=== PATIENT | female | born 1995 | race Caucasian/White ===

== ENCOUNTER 2023-02-13 05:37 | Emergency (ER) | payer BC, SELFPAY ==
[2023-02-13 05:39] VITALS: BP 135/80; PULSE 98; RESP 16; TEMP 36.2; O2SAT 98; BMI 37.6
--- OUTSIDE RECORDS SUMMARY | 2023-02-13 05:57 | XMS RPT_ITS | CCD ---
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 Name Role Phone Bernardino Campos MD Primary Care Provider KAYLA SCHMITZ Admitting Unavailab le NADIR, KAYLA GUERIN Attending Unavailab le BERNARDINO CAMPOS Primary Care Unavailab Bernardino Causey MD Primary Care Provider KAYLA SCHMITZ Attending Unavailab le BERNARDINO CAMPOS Primary Care Unavailab BERNARDINO Causey Primary Care Unavailab BERNARDINO Causey Primary Care Unavailab BRUNO Brown Attending Unavailable BERNARDINO CAMPOS Primary Care Unavailab le NADIR, KAYLA GUERIN Referring Unavailab le LEMON, VICKI Attending Unavailable BERNARDINO CAMPOS Primary Care Unavailab le NADIR, KAYLA GUERIN Referring Unavailab le LEMON, VICKI Attending Unavailable KAYLA SCHMITZ Referring Unavailab le BERNARDINO CAMPOS Primary Care Unavailab BERNARDINO Causey Primary Care Unavailab le NADIR, KAYLA GUERIN Referring Unavailab le SILVERIO, JAIMIE Attending Unavailable BERNARDINO CAMPOS Primary Care Unavailab le NADIR, KAYLA GUERIN Referring Unavailab le BERNARDINO CAMPOS Primary Care Unavailab le NADIR, KAYLA GUERIN Referring Unavailab le BERNARDINO CAMPOS Primary Care Unavailab le NADIR, KAYLA GUERIN Attending Unavailab le BERNARDINO CAMPOS Primary Care Unavailab le NADIRKAYLA MCMILLAN Referring Unavailab le BERNARDINO CAMPOS Primary Care Unavailab le BERNARDINO CAMPOS Primary Care Unavailab le NADIR, KAYLA GUERIN Referring Unavailab le BERNARDINO CAMPOS Primary Care Unavailab le NADIR, KAYLA GUERIN Referring Unavailab le BURSLEY, APALACHICOLA Rodney Primary Care Unavailab le STEPHEN, MONTSERRAT Referring Unavailable LEMONVICKI Attending Unavailable SYBILLEYBERNARDINO Primary Care Unavailab le ANDRES, KAYLA Referring Unavailable NAIDR, KAYLA GUERIN Attending Unavailab le BURSLEY APALACHICOLA Rodney Primary Care Unavailab le NADIR, KAYLA GUERIN Referring Unavailab le BURSLEY, ALBA Rodney Primary Care Unavailab le BURSLEY, APALACHICOLA Rodney Primary Care Unavailab le NADIR, KAYLA GUERIN Referring Unavailab le LEMON, VICKI Attending Unavailable BERNARDINO CAMPOS Primary Care Unavailab le NADIR, KAYLA GUERIN Referring Unavailab le SILVERIO, JAIMIE Attending Unavailable NADIR, KAYLA GUERIN Referring Unavailab le BURSLEY, ALBA Rodnye Primary Care Unavailab le SILVERIO, JAIMIE Attending Unavailable NADIR, KAYLA GUERIN Referring Unavailab le BURSLEYALBA Rodney Primary Care Unavailab le SILVERIO, JAIMIE Attending Unavailable ALBA CAMPOS Rodney Primary Care Unavailab le NADIR, KAYLA GUERIN Referring Unavailab le BURSLEY, BERNARDINO Stevens Primary Care Unavailab le NADIR, KAYLA GUERIN Referring Unavailab le NADIR, KAYLA GUERIN Attending Unavailab le NADIR, KAYLA GUERIN Referring Unavailab le BURSLEY, APALACHICOLA Rodney Primary Care Unavailab le SILVERIO, JAIMIE Attending Unavailable NADIR, KAYLA GUERIN Referring Unavailab le BURSLEYALBA Rodney Primary Care Unavailab le SILVERIO, JAIMIE Attending Unavailable SYBILLEYALBA Rodney Primary Care Unavailab le NADIR, KAYLA GUERIN Referring Unavailab le SILVERIO, JAIMIE Attending Unavailable BURSLEYALBAER B Primary Care Unavailab le NADIR, KAYLA GUERIN Referring Unavailab le SILVERIO, JAIMIE Attending Unavailable BERNARDINO CAMPOS Primary Care Unavailab le NADIR, KAYLA GUERIN Referring Unavailab le BURSLEY, ALBA B Primary Care Unavailab le NADIR, KAYLA GUERIN Attending Unavailab le ANDRESKAYLA Referring Unavailable Allergies Allergy Classification Reported Allergen(s) Allergy Type Date of Onset Reaction(s) Facility (20 sources) FLUoxetine; Translations: [FLUOXETINE] Drug Allergy 03-10-2021 Other: See Comments [facility] Work Phone: (20 sources) Ibuprofen; Translations: [IBUPROFEN] Drug Allergy 09-13-[address] [facility] (20 sources) Latex; Translations: [LATEX] Drug Allergy 09-13-[address] [facility] Medications Current Medications Medication Drug Class(es) Dates Sig (Normalized) Sig (Original) cholecalciferol 1.25 mg oral capsule (5 sources) Vitamin D Start: 06-12-2021 End: 09-09-2021 take 1 capsule by mouth every week cholecalciferol, Vitamin D3, (VITAMIN D3) 1,250 mcg (50,000 unit) cap capsule Take 1 capsule by mouth one time a week. 12 capsule 0 06/12/2021 09/09/2021 Discontinued (Course of therapy completed) Completed/Discontinued Medications Medication Drug Class(es) Dates Sig (Normalized) Sig (Original) acetaminophen 500 mg oral tablet (10 sources) take 2 tablets by mouth every eight hours as needed acetaminophen (TYLENOL EXTRA STRENGTH) 500 mg tablet Take 1,000 mg by mouth every 8 hours as needed. 0 Active Problems Active Problems Problem Classification Problem Date Documented Da te Episodic/Chronic Anxiety disorders (20 sources) Mixed anxiety and depressive disorder; Translations: [Other specified anxiety disorders] Chronic Contraceptive and procreative management (4 sources) Patient encounter status; Translations: [Encounter for removal of intrauterine contraceptive device] Episodic Disorders of lipid metabolism (20 sources) Hyperlipidemia; Translations: [Hyperlipidemia, unspecified] 11-18-2020 Chronic Menstrual disorders (20 sources) Dysmenorrhea; Translations: [Dysmenorrhea, unspecified] Onset: 09-13-2014 09-18-2019 Chronic Nutritional deficiencies (2 sources) Vitamin D deficiency; Translations: [Vitamin D deficiency, unspecified] Chronic Other connective tissue disease (1 source) Bicipital tendinitis, right shoulder; Translations: [Bicipital tendinitis of right shoulder] Onset: 12-06-2022 Episodic Other gastrointestinal disorders (1 source) Other constipation; Translations: [Chronic constipation] Onset: 11-29-2022 Episodic Other nervous system disorders (1 source) Other chronic pain; Translations: [Chronic right shoulder pain] Onset: 04-23-2022 Chronic Other nutritional; endocrine; and metabolic disorders (20 sources) Obese class II; Translations: [Obesity, unspecified] Onset: 09-18-2019 09-18-2019 Chronic Other and delivery including normal (2 sources) Normal ; Translations: [Encounter for supervision of normal first , unspecified trimester] 01-10-2023 Episodic Residual codes; unclassified (1 source) Other specified postprocedural states; Translations: [S/P shoulder surgery] Onset: 11-29-2022 Episodic Past or Other Problems Problem Classification Problem Date Documented Da te Episodic/Chronic Other connective tissue disease (20 sources) Biceps tendinitis; Translations: [Bicipital tendinitis, right shoulder] Onset: 05-03-2022 Episodic Other non-traumatic joint disorders (1 source) Pain in right shoulder; Translations: [Chronic right shoulder pain] Onset: 04-23-2022 Episodic Results Test Name Value Interpretation Reference Range Facil ity Vital Signs Date Time Vital Sign Value Performing Clinician Faci lity 01-18-2023 10:00-0500 Body height 161.3 cm Bruno Guerin MD Work Phone: [facility] 01-18-2023 10:00-0500 Body weight 97.7 kg Bruno Guerin MD Work Phone: [facility] 01-18-2023 10:00-0500 Diastolic blood pressure 80 mm[Hg] Bruno Guerin MD Work Phone: [facility] 01-18-2023 10:00-0500 Systolic blood pressure 116 mm[Hg] Brnuo Guerin MD Work Phone: [facility] 11-16-2022 19:15-0400 Body height 161.3 cm [facility] 11-16-2022 19:15-0400 Body weight 97.52 kg [facility] 11-16-2022 19:15-0400 Heart rate 71 /min [facility] 09-09-2021 08:44-0400 Body weight 99.07 kg Марина Collado APRN.PAST DUE ACCOUNTS CLERK Work Phone: [facility] 09-09-2021 08:44-0400 Diastolic blood pressure 68 mm[Hg] Марина Collado APRN.PAST DUE ACCOUNTS CLERK Work Phone: [facility] 09-09-2021 08:44-0400 Heart rate 68 /min Марина Podlogar ASSEMBLER [employer]ATE.PAST DUE ACCOUNTS CLERK Work Phone: [facility] 09-09-2021 08:44-0400 Respiratory rate 16 /min Марина Podlogar ASSEMBLER [employer].PAST DUE ACCOUNTS CLERK Work Phone: [facility] 09-09-2021 08:44-0400 SaO2% (BldA) [Mass fraction] 98 % Марина Podlogar ASSEMBLER [employer].PAST DUE ACCOUNTS CLERK Work Phone: [facility] 09-09-2021 08:44-0400 Systolic blood pressure 124 mm[Hg] Марина Podlogar ASSEMBLER [employer].PAST DUE ACCOUNTS CLERK Work Phone: [facility] 08-17-2021 11:35-0400 Body weight 99.34 kg Li Olin ASSEMBLER [employer]ATE.PAST DUE ACCOUNTS CLERK Work Phone: [facility] 08-17-2021 11:35-0400 Diastolic blood pressure 80 mm[Hg] Li Wendy ASSEMBLER [employer].PAST DUE ACCOUNTS CLERK Work Phone: [facility] 08-17-2021 11:35-0400 Systolic blood pressure 140 mm[Hg] Li Wendy ASSEMBLER [employer].PAST DUE ACCOUNTS CLERK Work Phone: [facility] 06-09-2021 15:08-0400 Body weight 100.61 kg Bernardino Campos MD Work Phone: [facility] 06-09-2021 15:08-0400 Diastolic blood pressure 72 mm[Hg] Bernardino Campos MD Work Phone: [facility] 06-09-2021 15:08-0400 Heart rate 89 /min Bernardino Campos MD Work Phone: [facility] 06-09-2021 15:08-0400 Respiratory rate 16 /min Bernardino Campos MD Work Phone: [facility] 06-09-2021 15:08-0400 SaO2% (BldA) [Mass fraction] 97 % Bernardino Campos MD Work Phone: [facility] 06-09-2021 15:08-0400 Systolic blood pressure 124 mm[Hg] Bernardino Campos MD Work Phone: [facility] Encounters Encounter Date Encounter Type Care Provider Facility Start: 02-09-2023 End: 02-09-2023 ambulatory ALBA Rodney CAMPOS Facility:[facility] Start: 02-04-2023 End: 02-04-[address] [facility] Facility:[facility] Start: 01-28-2023 End: 01-28-[address] [facility] Facility:[facility] Start: 01-18-2023 End: 01-18-[address] [facility] Facility:[facility] Start: 01-18-2023 End: 01-18-2023 Patient encounter procedure Bruno Guerin MD Work Phone: OB/Gynecology Procedures Date Procedure Procedure Detail Performing Clinician Start: 01-18-2023 Iadna chlamydia trachomatis amplified probe tq Bruno Guerin MD Work Phone: Start: 07-19-2022 Mri any jt upper extremity w/o contrast matrl Kayla Schmitz MD Work Phone: Start: 11-18-2020 Adult depression screening assessment Bernardino Campos MD Work Phone: Plan of Treatment Date Care Activity Detail Author Start: 11-18-2030 Urine microalbumin profile [facility] Start: 01-18-2023 End: 04-19-2023 CBC panel - Blood by Automated count CBC Lab Routine Supervision of normal first , antepartum Expected: 01/18/2023, Expires: 04/19/2023 [facility] Work Phone: Immunizations Immunization Date Immunization Notes Care Provider Fa [facility] 12-09-2021 influenza virus vaccine, unspecified formulation Kayla Schmitz MD Work Phone: [facility] 03-06-2021 COVID-19 vaccine, ag e 12+ yr (PFIZER-BIONTECH - PURPLE TOP) Bernardino Campos MD Work Phone: [facility] 02-12-2021 COVID-19 vaccine, ag e 12+ yr (PFIZER-RevcasterNTSerstech - PURPLE TOP) Bernardino Campos MD Work Phone: [facility] 11-18-2020 influenza virus vaccine, unspecified formulation Bernardino Campos MD Work Phone: [facility] Work Phone: 11-18-2020 influenza, injectabl e, quadrivalent, contains preservative Bernardino Campos MD Work Phone: [facility] 11-18-2020 tetanus toxoid, redu dana diphtheria toxoid, and acellular pertussis vaccine, adsorbed Bernardino Campos MD Work Phone: [facility] 11-01-2019 influenza, injectabl e, quadrivalent, preservative free Bernardino Campos MD Work Phone: [facility] Work Phone: 11-30-2010 influenza virus vaccine, live, attenuated, for intranasal use Bernardino Campos MD Work Phone: [facility] Work Phone: 09-22-2010 meningococcal polysaccharide (groups A, C, Y and W-135) diphtheria toxoid conjugate vaccine (MCV4P) Bernardino Campos MD Work Phone: [facility] Work Phone: 03-16-2010 tetanus toxoid, redu dana diphtheria toxoid, and acellular pertussis vaccine, adsorbed Bernardino Campos MD Work Phone: [facility] Work Phone: 10-18-2009 influenza virus vaccine, live, attenuated, for intranasal use Bernardino Campos MD Work Phone: [facility] Work Phone: 04-10-2009 human papilloma viru s vaccine, quadrivalent Bernardino Campos MD Work Phone: [facility] Work Phone: 12-23-2008 novel [id number], preservative-free, injectable Bernardino Campos MD Work Phone: [facility] Work Phone: 12-03-2008 human papilloma viru s vaccine, quadrivalent Bernardino Campos MD Work Phone: [facility] Work Phone: 09-17-2008 human papilloma viru s vaccine, quadrivalent Bernardino Campos MD Work Phone: [facility] Work Phone: 09-17-2008 influenza virus vaccine, live, attenuated, for intranasal use Bernardino Campos MD Work Phone: [facility] Work Phone: 09-17-2008 varicella virus vaccine Sonyai leio Campos MD Work Phone: [facility] Work Phone: 08-29-2001 diphtheria, tetanus toxoids and acellular pertussis vaccine, unspecified formulation Bernardino Campos MD Work Phone: [facility] Work Phone: 08-29-2001 measles, mumps and rubella virus vaccine Bernardino Campos MD Work Phone: [facility] Work Phone: 08-29-2001 poliovirus vaccine, unspecified formulation Bernardino Campos MD Work Phone: [facility] Work Phone: 02-14-1998 diphtheria, tetanus toxoids and acellular pertussis vaccine, unspecified formulation Bernardino Campos MD Work Phone: [facility] Work Phone: 02-14-1998 poliovirus vaccine, unspecified formulation Bernardino Campos MD Work Phone: [facility] Work Phone: 11-07-1997 haemophilus influenz ae type b vaccine, conjugate unspecified formulation Bernardino Campos MD Work Phone: [facility] Work Phone: 07-24-1997 measles, mumps and rubella virus vaccine Bernardino Campos MD Work Phone: [facility] Work Phone: 07-24-1997 varicella virus vaccine Vick Campos MD Work Phone: [facility] Work Phone: 05-02-1997 hepatitis B vaccine, pediatric or pediatric/adolescent dosage Bernardino Campos MD Work Phone: [facility] Work Phone: 02-11-1997 diphtheria, tetanus toxoids and acellular pertussis vaccine, unspecified formulation Bernardino Campos MD Work Phone: [facility] Work Phone: 02-11-1997 haemophilus influenz ae type b vaccine, conjugate unspecified formulation Bernardino Campos MD Work Phone: [facility] Work Phone: 1996 diphtheria, tetanus toxoids and acellular pertussis vaccine, unspecified formulation Bernardino Campos MD Work Phone: [facility] Work Phone: 1996 haemophilus influenz ae type b vaccine, conjugate unspecified formulation Bernardino Campos MD Work Phone: [facility] Work Phone: 1996 hepatitis B vaccine, pediatric or pediatric/adolescent dosage Bernardino Campos MD Work Phone: [facility] Work Phone: 1996 poliovirus vaccine, unspecified formulation Bernardino Campos MD Work Phone: [facility] Work Phone: 1996 diphtheria, tetanus toxoids and acellular pertussis vaccine, unspecified formulation Bernardino Campos MD Work Phone: [facility] Work Phone: 1996 haemophilus influenz ae type b vaccine, conjugate unspecified formulation Bernardino Campos MD Work Phone: [facility] Work Phone: 1996 hepatitis B vaccine, pediatric or pediatric/adolescent dosage Bernardino Campos MD Work Phone: [facility] Work Phone: 1996 poliovirus vaccine, unspecified formulation Bernardino Campos MD Work Phone: [facility] Work Phone: Payers Date Payer Category Payer Unknown [employer] PPO OOS [id number] 2021-Present [phone] [address] [place] [address] PPO [id number] 2021 Unknown [employer] PPO OOS [id number] 2021-Present [phone] [address] [place] [address] PPO [id number] 2021 Unknown [id number] Social History Date Type Detail Facility Start: 08-14-2019 End: 04-06-2022 Tobacco smoking status NHIS Never smoked tobacco [facility] Start: 08-14-2019 End: 04-06-2022 Tobacco use and exposure Smokeless tobacco non-user [facility] Start: 06-09-2021 End: 12-28-2022 Alcohol intake Current drinker of alcohol (finding) [facility] Start: 06-09-2021 End: 06-11-[address] [facility] Start: 11-16-2020 History SDOH Alcohol Frequency [address] [facility] Start: 11-16-2020 History SDOH Alcohol Std Drinks [address] [facility] Start: 11-16-2020 End: 09-02-2021 [facility] Start: 11-16-2020 History SDOH Social Connections Meetings [address] [facility] Start: 11-16-2020 History SDOH Stress 4 [facility] Start: 09-04-[address] [facility] Start: 1995 Sex Assigned At Female C [facility] Start: 05-30-2021 End: 08-17-2021 Exposure to SARS-CoV-2 (event) Not sure [facility] Start: 11-16-2020 End: 06-11-2022 Social connection and isolation panel [facility] Do you belong to any clubs or organizations such as sikhism groups, unions, fraternal or athletic groups, or school groups? No [facility] How often do you att end meetings of the clubs or organizations you belong to? Patient refused [facility] Are you now , , , , never or living with a partner? [facility] How often to you hav e a drink containing alcohol? 2-4 times a month [facility] How many standard dr inks containing alcohol do you have on a typical day? [address] [facility] How often do you hav e 6 or more drinks on 1 occasion? Less than monthly [facility] How hard is it for y ou to pay for the very basics like food, housing, medical care, and heating Not very hard [facility] Do you feel stress - tense, restless, nervous, or anxious, or unable to sleep at night because your mind is troubled all the time - these days [OSQ] Rather much [facility] (I/We) worried susie er (my/our) food would run out before (I/we) got money to buy more. Never true [facility] Start: 09-05-2019 Gender identity Identifies as female gender (finding) [facility] Start: 09-05-2019 Sexual orientation Heterosexual (samson abbasi) [facility] Start: 01-10-2023 End: 01-18-2023 Alcohol intake Ex-drinker (finding) [facility] Start: 12-02-[address] [facility] Medical Equipment Procedure Code Equipment Code Equipment Origin al Text Equipment Identifier Dates Lnt Implant Syst em 4.75 Bc [id number] Start: 11-29-2022 Goals Date Patient Goal Desired Activity /State Personal health goal Clinical Notes 09-13-2014 to 02-09-2023 Bruno Guerin MD - 01/18/2023 9:47 AM ESTPatient Vicki Jimenez, PT - 01/17/2023 5:57 PM Vicki Simpson, PT - 01/17/2023 5:23 PM ANAOVangie Brady, PT - 01/12/2023 5:19 PM EST Note Date & Type Note Facility 02-09-2023 Note HNO ID: [id number] Author: Vicki Wallace, PT Service: ? Author Type: Physical Therapist Type: Progress Notes Filed: 02/09/2023 4:39 PM Note Text: Episode Visit Count: 11 Therapist That Will Accept/Oversee The Plan Of Care: Vicki Wallace Start of Care Date: 12/06/22 Onset Date: 11/29/22 (original symptom onset 5-6 years ago) Patient Identified by Name and Date of : Yes [facility] PHYSICAL THERAPY PROGRESS REPORT PLAN OF CARE UPDATE: Assessment: Suzy Sue demonstrates improvements in lifting, reaching overhead, and use hand with arm at shoulder level. She has progressed toward goals. Patient continues to present with impairments in overall function, range of motion, and strength that interfere with (certain directions of lifting my shoulder) . Current prognosis is Excellent due to: current objective clinical presentation, good overall health status, good support system/ coping skills . She will benefit from continued skilled therapy services to meet the updated goals for this plan of care as noted below. Goals for Episode of Care: created on 12/06/22 through 02/05/23 Goals updated on 02/09/2023. [place] in home exercise program. (Met) Patient will decrease pain rating by 2 points to meet minimal clinical important difference for numeric pain rating scale. (Met) Patient will increase active ROM of R shld to symmetrical and WNL for all planes to allow pt to to improve performance of ADLs. (Partially Met)-improved Patient will demonstrate increase in R UE strength to 4+ to 5/5 during manual muscle testing in order to improve function for home management tasks, prior functional tasks, and work tasks. (Met) Perform feeding self; all ADLs and required work activities with R UE without pain. (Met) Improve postural awareness. (Met) Patient Goals: To get movement back in my arm. Planned Interventions, Frequency, and Duration: 1x/week, 4 weeks Total Number of Visits Planned: 4 Patient to be seen for Therapeutic exercise (42042), Neuromuscular re-education (90705), Self-group home management (79167), Patient/Family/Caregiver Education, Manual therapy (57476) PLAN FOR NEXT VISIT: Progress strengthening and ROM to fully achieve goals. SUBJECTIVE: Pt reports the exercises are getting easier. She notes improved function R UE with only limitations of certain directions that I lift my arm end range/overhead only. Functional Limitations: (certain directions of lifting my shoulder) Pain: Pain Pain Level: 3 Pain Location: Shoulder - Right Post Treatment Pain Post Treatment Pain Level: (not reated numerically) Post Treatment Pain Location: Shoulder - Right Post Treatment Pain Description: ( just tired ) PROMIS Scales Higher is Better 02/01/2023 01/03/2023 12/03/2022 Phys Func - Score 38 (moderate dysfunction) 35 (moderate dysfunction) 30 (moderate dysfunction) Phys Func - Percentile 12% 7% 2% Self-Eff Symptom - Score 48 (Average) 46 (Average) 39 (Low) Self-Eff Symptom - Percentile 42% 34% 14% T-scores: mean of general population = 50. 5 points is clinically meaningfully difference Percentiles provide an indication of how the patient's score ranks in relation to the general population. Higher percentile rankings indicate better function/quality of life. 50th percentile is the average of the general population and indicates half of respondents had a worse score. OBJECTIVE MEASURES WITH LEVEL OF FUNCTION: UE AROM R Shoulder Flex: 150 Degrees R Shoulder ABduction: 155 Degrees R Shoulder Internal Rotation (Functional): back of hand to lumbar spine (Pt states, Some days I can almost reach my bra strap. ) R Shoulder External Rotation: 45 Degrees R Elbow Extension: 3 Degrees (hyperextension) R Elbow Flexion: 140 Degrees UE and Cervical Strength R Shoulder Flexion: 4+/5 R Shoulder Abduction (C5): 4+/5 R Shoulder Internal Rotation: 4+/5 R Shoulder External Rotation: 4/5 R Elbow Flexion (C6): 4+/5 TREATMENT: Therapeutic Exercise: 1: UBE seat 6 x 4 minutes, no resistance. 2: Bicep curls 2x10 with 2# 3: green band IR 2 x 10 4: green band ER 2 x 10 5: Numbers on the wall #1-5, 4x30 seconds with 1# wrist weight. 6: Body blade IR/ER 3x30 seconds 7: Body blade up and down oscillations 3x30 seconds 8: Shoulder flexion with 1# 2x10 9: Shoulder scaption with 1# 2x10 10: Shoulder abduction with 1# 2x10 11: *wall push ups 2 x 10 Skilled Intervention: Patient was educated in proper exercise technique and purpose for exercises. Reviewed and educated patient on additions/changes for home exercise program as above (*). Skilled judgment was used in selection of appropriate interventions. Provided written instruction for home exercise program to facilitate proper performance and compliance. Correct performance of therapeutic exercises was facilitated with verbal and visual cuing. Additional time necessary (more content not included)... [facility] 02-04-2023 Note HNO ID: [id number] Author: Vicki Wallace, PT Service: ? Author Type: Physical Therapist Type: Progress Notes Filed: 02/04/2023 4:43 PM Note Text: Episode Visit Count: 10 Therapist That Will Accept/Oversee The Plan Of Care: Vicki Wallace Start of Care Date: 12/06/22 Onset Date: 11/29/22 (original symptom onset 5-6 years ago) Patient Identified by Name and Date of : Yes REHABILITATION AND SPORTS THERAPY PHYSICAL THERAPY TREATMENT NOTE ASSESSMENT: Suzy Sue tolerated the session with fatigue and expected muscle soreness. She demonstrated improvements in strengthening of R shoulder without increase in pain. The patient will continue to benefit from ongoing skilled physical therapy to progress toward set goals. PLAN FOR NEXT VISIT: SUBJECTIVE: Pt reports that her shoulder was a little sore this morning, but other than that doing well. Pain: Pain Pain Level: 2 Pain Location: Shoulder - Right Post Treatment Pain Post Treatment Pain Level: Better Post Treatment Pain Location: Shoulder - Right OBJECTIVE MEASURES WITH LEVEL OF FUNCTION: TREATMENT: Therapeutic Exercise: 1: UBE seat 6 x 4 minutes, no resistance. (1:1 throughout; discussed current HEP and subjective collected.) 2: Bicep curls 2x10 with 2# 3: green band IR 2 x 10 4: green band ER 2 x 10 5: Numbers on the wall #1-5 , 1x30 seconds, 2x30 seconds with 1# wrist weight. 6: Body blade IR/ER 3x30 seconds 7: Body blade up and down oscillations 3x30 seconds 8: Shoulder flexion with 1# 2x10 9: Shoulder scaption with 1# 2x10 10: Shoulder abduction with 1# 2x10 11: PROM R shoudler flexion, abdutcion, ER x 10 Skilled Intervention: Patient was educated in proper exercise technique and purpose for exercises. Skilled judgment was used in selection of appropriate interventions. Correct performance of therapeutic exercises was facilitated with verbal and visual cuing. Billing Therapeutic Exercise Treatment Minutes: 39 Skilled Treatment Time Minutes (timed and untimed codes): 39 Total Session Time (minutes): 39 Session Start Time : 1400 Session Stop Time : 1439 Vanessa Burr, MD ALLERGY IMMUNOLOGY Vicki Wallace, BERNY [facility] 01-28-2023 Note HNO ID: [id number] Author: Brooks Raygoza PT Service: ? Author Type: Physical Therapist Type: Progress Notes Filed: 01/28/2023 12:54 PM Note Text: Episode Visit Count: 9 Therapist That Will Accept/Oversee The Plan Of Care: Vicki Wallace Start of Care Date: 12/06/22 Onset Date: 11/29/22 (original symptom onset 5-6 years ago) Patient Identified by Name and Date of : Yes REHABILITATION AND SPORTS THERAPY PHYSICAL THERAPY TREATMENT NOTE ASSESSMENT: Suzy Sue tolerated the session with fatigue and no issues. She demonstrated improvements in strengthening of R shoulder without increase in pain. The patient will continue to benefit from ongoing skilled physical therapy to progress toward set goals. PLAN FOR NEXT VISIT: Asses repsonse to 1# weight AROM SUBJECTIVE: Pt reports that her shoulder is doing good today, has a little pain due to sleeping on it last night. Pain: Pain Pain Level: 2 Pain Location: Shoulder - Right Post Treatment Pain Post Treatment Pain Level: Better Post Treatment Pain Location: Shoulder - Right OBJECTIVE MEASURES WITH LEVEL OF FUNCTION: TREATMENT: Therapeutic Exercise: 1: UBE seat 6 x 3.5 minutes, no resistance. (1:1 throughout; discussed current HEP and subjective collected.) 2: Ball on wall (2#) CW and CCW 2x10 each 3: green band IR 2 x 10 4: green band ER 2 x 10 5: green band scapular retractions 2 x 10 6: Bicep curls 2x10 with 2# 7: *Shoulder flexion with 1# 2x10 8: *Shoulder scaption with 1# 2x10 9: *Shoulder abduction with 1# 2x10 10: PROM R shoudler flexion, abdutcion, ER x 10 Skilled Intervention: Patient was educated in proper exercise technique and purpose for exercises. Reviewed and educated patient on additions/changes for home exercise program as above (*). Skilled judgment was used in selection of appropriate interventions. Correct performance of therapeutic exercises was facilitated with verbal and visual cuing. Billing Therapeutic Exercise Treatment Minutes: 38 Skilled Treatment Time Minutes (timed and untimed codes): 38 Total Session Time (minutes): 38 Session Start Time : 846 Session Stop Time : 924 SHIRLEY Aguirre, PT, DPT. [facility] 01-18-2023 Note HNO ID: [id number] Author: Bruno Guerin MD Service: ? Author Type: Physician Type: Progress Notes Filed: 01/18/2023 4:48 PM Note Text: INITIAL OB ASSESSMENT Potato Pancake Frier offered: Patient declines. OB Provider: Cristina Cervantes RN HPI: Alisa is a 27 year old White Female here to establish Obstetrical Care. Patient's last menstrual period was 11/18/2022 (exact date). from OB Dating Form. Cycles regular was unplanned but accepted Complaints: None OB History T0 L0 SAB0 IAB0 Ectopic0 Multiple0 Live Births0 Patient's Risk Screening for delivery: Have you had a prior cottrell between 20w and 36w6d?: No MEDICAL/PSYCHOSOCIAL HISTORY: History of hemorrhage or bleeding concerns: No Thyroid Disease: No History of chronic hypertension: No History of pre-existing diabetes: No No results found for: ABORHD No weight on file for this encounter. History of abnormal pap: No Prior treatment for cervical dysplasia: none. 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 I don't have enough money to pay my bills: Sometimes Within the past 12 months, have you worried that your food would run out before you had money to buy more: Rarely In the past 12 months, has lack of reliable transportation kept you from going to medical appointments or work, or from keeping things needed for daily living: Never In the past 12 months, have you had any concerns about having a place to live, or about the condition or quality of your housing: Never Are there any cultural or spiritual needs we should be aware of: No Depression/Anxiety Screening: denies symptoms of depression. OB Depression and Anxiety Screening- This Encounter (since 01/09/2023) Over the past 2 weeks have you felt down, depressed, or hopeless? Negative Over the past two weeks, have you felt little interest or pleasure in doing things?? Negative Feeling nervous, anxious or on edge 0-Not at all Not being able to stop or control worrying 0-Not al all Anxiety Pre-Screening Total (If >/= 3 additional questions will be reviewed) 0 Genetic Screening: Partner present: No Patient verbalized knowledge of partner family health history: Yes Do you or your partner have any personal or family history of defects not previously discussed: No Do you have history of a complicated by anomaly, genetic condition, or demise: No ACOG Recommended Screening Screening for early gestational diabetes testing: Criteria for early testing requires elevated BMI plus one other risk factor: No weight on file for this encounter. (risk factor if > than 25 or 23 in Americans) Additional risk factors: None She does meet ACOG criteria for early gestational DM screening. Screening for low dose aspirin use for the prevention of pre-eclampsia: Low dose aspirin should be considered if the patient has one high or two moderate risk factors: High risk factors: None Moderate risk ractors: Nulliparity and Obesity (body mass index greater than 30) She does meet criteria for low dose ASA Marital Status: Partner: Name: Edi Sue Age: 24 Occupation: [employer] Gender: Male History of STDs: None PAST MEDICAL HISTORY PAST MEDICAL HISTORY Diagnosis Date Anxiety with depression Constipation Hyperlipidemia Obesity (BMI 35.0-39.9 without comorbidity) Osteochondroma s/p excision 2010 PAST SURGICAL HISTORY PAST SURGICAL HISTORY Procedure Laterality Date MIRENA removed 08/17/2021 PAST SURGICAL HISTORY OF 2010 osteochondroma L femur removal PAST SURGICAL HISTORY OF 2004 thyroglossal duct cyst removal PAST SURGICAL HISTORY OF Right shoulder CURRENT MEDICATIONS Current Outpatient Medications Medication Sig Dispense Refill acetaminophen (TYLENOL EXTRA STRENGTH) 500 mg tablet Take 1,000 mg by mouth every 8 hours as needed. docusate sodium (COLACE) 100 mg capsule Take 1 capsule by mouth two times a day as needed for constipation. 60 capsule 2 ondansetron orally disintegrating (ZOFRAN ODT) 4 mg disintegrating tablet Take 1 tablet by mouth every 8 hours as needed for nausea/vomiting. 30 tablet 1 sertraline (ZOLOFT) 100 mg tablet Take 1 tablet by mouth once daily. 90 tablet 0 PNV no.95/ferrous fum/folic ac ( ORAL) Take by mouth. naproxen sodium (ALEVE) 220 mg tablet Take 220 mg by mout (more content not included)... [facility] 01-18-2023 History of Presen t illness Narrative INITIAL OB ASSESSMENT Potato Pancake Frier offered: Patient declines. OB Provider: Cristina Cervantes RN HPI: Alisa is a 27 year old White Female here to establish Obstetrical Care. Patient's last menstrual period was 11/18/2022 (exact date). from OB Dating Form. Cycles regular was unplanned but accepted Complaints: None OB History T0 L0 SAB0 IAB0 Ectopic0 Multiple0 Live Births0 Patient's Risk Screening for delivery: Have you had a prior cottrell between 20w and 36w6d?: No MEDICAL/PSYCHOSOCIAL HISTORY: History of hemorrhage or bleeding concerns: No Thyroid Disease: No History of chronic hypertension: No History of pre-existing diabetes: No No results found for: ABORHD No weight on file for this encounter. History of abnormal pap: No Prior treatment for cervical dysplasia: none. 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 I don't have enough money to pay my bills: Sometimes Within the past 12 months, have you worried that your food would run out before you had money to buy more: Rarely In the past 12 months, has lack of reliable transportation kept you from going to medical appointments or work, or from keeping things needed for daily living: Never In the past 12 months, have you had any concerns about having a place to live, or about the condition or quality of your housing: Never Are there any cultural or spiritual needs we should be aware of: No Depression/Anxiety Screening: denies symptoms of depression. OB Depression and Anxiety Screening- This Encounter (since 01/09/2023) Over the past 2 weeks have you felt down, depressed, or hopeless? Negative Over the past two weeks, have you felt little interest or pleasure in doing things? Negative Feeling nervous, anxious or on edge 0-Not at all Not being able to stop or control worrying 0-Not al all Anxiety Pre-Screening Total (If >/= 3 additional questions will be reviewed) 0 Genetic Screening: Partner present: No Patient verbalized knowledge of partner family health history: Yes Do you or your partner have any personal or family history of defects not previously discussed: No Do you have history of a complicated by anomaly, genetic condition, or demise: No ACOG Recommended Screening Screening for early gestational diabetes testing: Criteria for early testing requires elevated BMI plus one other risk factor: No weight on file for this encounter. (risk factor if > than 25 or 23 in Americans) Additional risk factors: None She does meet ACOG criteria for early gestational DM screening. Screening for low dose aspirin use for the prevention of pre-eclampsia: Low dose aspirin should be considered if the patient has one high or two moderate risk factors: High risk factors: None Moderate risk ractors: Nulliparity and Obesity (body mass index greater than 30) She does meet criteria for low dose ASA Marital Status: Partner: Name: Edi Sue Age: 24 Occupation: [employer] Gender: Male History of STDs: None PAST MEDICAL HISTORY PAST MEDICAL HISTORY Diagnosis Date Anxiety with depression Constipation Hyperlipidemia Obesity (BMI 35.0-39.9 without comorbidity) Osteochondroma s/p excision 2010 PAST SURGICAL HISTORY PAST SURGICAL HISTORY Procedure Laterality Date MIRENA removed 08/17/2021 PAST SURGICAL HISTORY OF 2010 osteochondroma L femur removal PAST SURGICAL HISTORY OF 2004 thyroglossal duct cyst removal PAST SURGICAL HISTORY OF Right shoulder CURRENT MEDICATIONS Current Outpatient Medications Medication Sig Dispense Refill acetaminophen (TYLENOL EXTRA STRENGTH) 500 mg tablet Take 1,000 mg by mouth every 8 hours as needed. docusate sodium (COLACE) 100 mg capsule Take 1 capsule by mouth two times a day as needed for constipation. 60 capsule 2 ondansetron orally disintegrating (ZOFRAN ODT) 4 mg disintegrating tablet Take 1 tablet by mouth every 8 hours as needed for nausea/vomiting. 30 tablet 1 sertraline (ZOLOFT) 100 mg tablet Take 1 tablet by mouth once daily. 90 tablet 0 PNV no.95/ferrous fum/folic ac ( ORAL) Take by mouth. naproxen sodium (ALEVE) 220 mg tablet Take 220 mg by mouth two times a day as needed. (Patient not taking: Reported on 01/10/2023) No current facility-administered medications for this visit. Allergies As of Date: 01/10/2023 Allergen Noted Reaction LATEX 09/13/2014 Anaphylaxis IBUPROFEN 09/13/2014 Unknown PROZAC [FLUOXETINE] 03/10/2021 Other: See Comments Fully Assessed 01/10/2023 Does patient have penicillin allergy: No Attending Note I have personally performed a face to face assessment of the patient and have reviewed the ROSSI note. I performed a substantive portion of the visit including all aspects of the following. Other additions or changes: None Signature: Bruno Guerin MD Date: 01/18/2023 Time: 4:45 PM REVIEW OF SYSTEMS: GENERAL: Negative for: Fever or Chills HEENT: Negative for: Headache, Impaired Vision, Ringing in Ears, Nosebleeds NECK: Negative for: Swelling, Pain, Stiffness RESPIRATORY: Negative for: Cough, Shortness of breath, Wheezing GASTROINTESTINAL: Negative for: Heartburn, Diarrhea, Blood in stool, Stable constipation. Also nausea with emesis 1x per day. Tolerating PO. MUSCULOSKELETAL: Negative for: Muscle or joint pain, stiffness, Joint swelling NEUROLOGIC/PSYCHIATRIC: Negative for: Weakness, Paralysis, Numbness, Tingling, Tremor, Anxiety, Depression, Memory loss SKIN: Negative for: Rash, Itching GENITOURINARY: Negative for: vaginal itching, vaginal discharge, hematuria or dysuria PHYSICAL EXAM: BP 116/80 Ht 5' 3.5 (1.61m) Wt 215 lb 6.4 oz (97.7kg) LMP 11/18/2022 BMI 37.55 kg/(m^2). GENERAL: pleasant in no apparent distress DERMATOLOGY: Normal, without lesions, non-icteric, and non-hirsute NECK: Supple, full range of motion, no adenopathy, and thyroid normal CHEST: Normal inspiratory effort BREAST: soft, non-tender, symmetric, no dominant mass, normal nipple-areolar complex, no lymphadenopathy, and no nipple discharge ABDOMEN: soft, non-tender, and no masses NEURO: alert and oriented x3,exam grossly non-focal PELVIS: External genitalia normal without lesions. Perineal body intact. No vaginal or cervical lesions. Cervix closed. Uterus 8 week size. No adnexal masses or tenderness. Clinical Pelvimetry: Pelvimetry clinically assessed as adequate Limited OB ultrasound exam: single intrauterine and positive cardiac activity OB Risk Screening: Completed, no positive findings documented. ASSESSMENT: 27 year old at 8w5d wks gestational age PLAN: 1) Patient oriented to practice. Patient given new OB orientation folder. Discussed nutrition, folic acid supplementation, dietary guidelines, exercise, smoking, alcohol, caffeine, and drug use. Discussed routine OB labs including STD/HIV. Discussed how to access Your guide to a health and the Payroll Coordinator. Discussed aneuploidy and carrier screening. Regarding aneuploidy screening, nuchal translucency/first trimester early anatomy ultrasound and NIPT were discussed. Regarding carrier screening, the myriad screen was discussed. The risks/benefits and limitations of NIPT/aneuploidy screening were reviewed including the potential for false negative and false positive results. We discussed the availability of professional-society guided carrier screening and reviewed the conditions screened and limitations of screening. The availability of genetic counseling was reviewed. Information on aneuploidy/carrier screening was provided. The patient chooses: Aneuploidy screening: chooses to proceed with First trimester early anatomy ultrasound (12-13w6d) and Carrier screening: Declines 2) Nausea - advised on vitamin B6 & diet Follow up in 4 weeks or sooner prn. Bruno Guerin MD documented in this encounter [facility] 01-18-2023 Instructions Inocencia Hammonds Ma - 01/18/2023 9:47 AM EST Please select the following link to access the [facility] Your Guide to a Healthy . [email or web address] documented in this encounter [facility] 01-17-2023 Note HNO ID: [id number] Author: Vicki Wallace, PT Service: ? Author Type: Physical Therapist Type: Progress Notes Filed: 01/17/2023 7:11 PM Note Text: Episode Visit Count: 8 Therapist That Will Accept/Oversee The Plan Of Care: Vicki Wallace Start of Care Date: 12/06/22 Onset Date: 11/29/22 (original symptom onset 5-6 years ago) Patient Identified by Name and Date of : Yes REHABILITATION AND SPORTS THERAPY PHYSICAL THERAPY PROGRESS REPORT PLAN OF CARE UPDATE: Assessment: Suzy Sue demonstrates improvements in use hand with arm at shoulder level and feeding self. She has progressed toward goals. Patient continues to present with impairments in overall function, range of motion, and strength that interfere with . Current prognosis is Excellent due to: current objective clinical presentation, good overall health status, good support system/ coping skills . She will benefit from continued skilled therapy services to meet the updated goals for this plan of care as noted below. Goals for Episode of Care: created on 12/06/22 through 02/05/23 Goals updated on 01/17/2023. [place] in home exercise program. (Met) Patient will decrease pain rating by 2 points to meet minimal clinical important difference for numeric pain rating scale. (Partially Met) Patient will increase active ROM of R shld to symmetrical and WNL for all planes to allow pt to to improve performance of ADLs. (Partially Met)-improved Patient will demonstrate increase in R UE strength to 4+ to 5/5 during manual muscle testing in order to improve function for home management tasks, prior functional tasks, and work tasks. (Partially Met) Perform feeding self; all ADLs and required work activities with R UE without pain. (Partially Met)- no pain, but not 100% yet Improve postural awareness. (Met) Patient Goals: To get movement back in my arm. Planned Interventions, Frequency, and Duration: 1x/week, 4 weeks Total Number of Visits Planned: 4 Patient to be seen for Therapeutic exercise (43438), Neuromuscular re-education (04372), Self-group home management ([id number]), Patient/Family/Caregiver Education, Manual therapy ([id number]) PLAN FOR NEXT VISIT: Assess response of increased resistive exercises. Continue to progress shld and scapular strengthening and shld AROM to fully meet al functional goals. SUBJECTIVE: Pt notes her shoulder is improving and she is compliant with HEP. Pain: Pain Pain Level: 2 Pain Location: Shoulder - Right Description: Aching, Dull Post Treatment Pain Post Treatment Pain Level: 0 Post Treatment Pain Location: Shoulder - Right Post Treatment Symptoms: fatigued PROMIS Scales Higher is Better 01/03/2023 12/03/2022 05/28/2022 Phys Func - Score 35 (moderate dysfunction) 30 (moderate dysfunction) 38 (moderate dysfunction) Phys Func - Percentile 7% 2% 12% Self-Eff Symptom - Score 46 (Average) 39 (Low) 41 (Average) Self-Eff Symptom - Percentile 34% 14% 18% T-scores: mean of general population = 50. 5 points is clinically meaningfully difference Percentiles provide an indication of how the patient's score ranks in relation to the general population. Higher percentile rankings indicate better function/quality of life. 50th percentile is the average of the general population and indicates half of respondents had a worse score. OBJECTIVE MEASURES WITH LEVEL OF FUNCTION: UE AROM R Shoulder Flex: 145 Degrees (end range tightness) R Shoulder ABduction: 115 Degrees (tightness) R Shoulder Internal Rotation (Functional): back of hand to sacrum (end range tightness) R Shoulder External Rotation: 45 Degrees R Elbow Extension: 3 Degrees (hyperextension) R Elbow Flexion: 140 Degrees R Forearm Supination: 100 Degrees R Forearm Pronation: 95 Degrees L Shoulder Flex: 160 Degrees L Shoulder ABduction: 180 Degrees L Elbow Extension: 2 (hyperextension) L Elbow Flexion: 140 Degrees L Forearm Supination: 100 Degrees L Forearm Pronation: 90 Degrees UE and Cervical Strength Strength Tested: Shoulder All R Shoulder Flexion: 4+/5 R Shoulder Abduction (C5): 4+/5 R Shoulder Internal Rotation: 4+/5 R Shoulder External Rotation: 4/5 R Elbow Flexion (C6): 4+/5 L Shoulder Flexion: 5/5 L Shoulder Abduction (C5): 5/5 L Shoulder Internal Rotation: 5/5 L Shoulder External Rotation: 4+/5 L Elbow Flexion (C6): 5/5 TREATMENT: Therapeutic Exercise: 1: Seated shld pulleys for flexion, abduction, scaption, and IR 2x10 2: Wall slides 2x10 for flexion 3: Ball on wall (2#) CW and CCW 2x10 each 4: *bicep curls 1# x 10, 2# x10 5: *green band scapular retractions 2 x 10 6: *green band IR 2 x 10 7: *green band ER 2 x 10 Skilled Intervention: Patient was educated in proper exercise technique and purpose for exercises. Reviewed and educated patient on additions/changes for home exercise program as above (*). Skilled judgment was used in selection of appropriate int (more content not included)... [facility] 01-17-2023 History of Presen t illness Narrative Program_ID:[id number] Access Code: [email or web address] URL: [email or web address] Date: 01-17-2023 Prepared By: Vicki Wallace Program Notes Exercises - Circular Shoulder Pendulum with Table Support - 2-3 x daily - 7 x weekly - sets - 20-25 reps - Flexion-Extension Shoulder Pendulum with Table Support - 2-3 x daily - 7 x weekly - sets - 20-25 reps - Horizontal Shoulder Pendulum with Table Support - 2-3 x daily - 7 x weekly - sets - 20-25 reps - Supported Elbow Flexion Extension PROM - 2 x daily - 7 x weekly - 2 sets - 10 reps - Elbow Extension PROM - 2 x daily - 7 x weekly - sets - 5 reps - Seated Wrist Flexion PROM Stretch - 2 x daily - 7 x weekly - 2 sets - 10 reps - Seated Wrist Extension PROM - 2 x daily - 7 x weekly - 2 sets - 10 reps - Seated Wrist Supination PROM - 2 x daily - 7 x weekly - 2 sets - 10 reps - gripping and finger extension - 2 x daily - 7 x weekly - 2 sets - 10 reps - Supine Shoulder External Rotation with Dowel - 2 x daily - 7 x weekly - 2 sets - 10 reps - Supine Shoulder Flexion Passive ROM with wand - 2 x daily - 7 x weekly - 2 sets - 10 reps - Isometric Shoulder Flexion at Wall - 1 x daily - 7 x weekly - 2 sets - 10 reps - Isometric Shoulder Extension at Wall - 1 x daily - 7 x weekly - 2 sets - 10 reps - Isometric Shoulder Abduction at Wall - 1 x daily - 7 x weekly - 2 sets - 10 reps - Standing Isometric Shoulder External Rotation with Doorway - 1 x daily - 7 x weekly - 2 sets - 10 reps - Standing Isometric Shoulder Internal Rotation with Towel Roll at Doorway - 1 x daily - 7 x weekly - 2 sets - 10 reps - Isometric Shoulder Adduction - 1 x daily - 7 x weekly - 2 sets - 10 reps - Shoulder External Rotation with Anchored Resistance - 2 x daily - 7 x weekly - 2 sets - 10 reps - Shoulder Internal Rotation with Resistance - 2 x daily - 7 x weekly - 2 sets - 10 reps - Scapular Retraction with Resistance - 2 x daily - 7 x weekly - 2 sets - 10 reps - Standing Single Arm Elbow Flexion with Resistance - 2 x daily - 7 x weekly - 2 sets - 10 reps Episode Visit Count: 8 Therapist That Will Accept/Oversee The Plan Of Care: Vicki Wallace Start of Care Date: 12/06/22 Onset Date: 11/29/22 (original symptom onset 5-6 years ago) Patient Identified by Name and Date of : Yes REHABILITATION AND SPORTS THERAPY PHYSICAL THERAPY PROGRESS REPORT PLAN OF CARE UPDATE: Assessment: Suzy Sue demonstrates improvements in use hand with arm at shoulder level and feeding self. She has progressed toward goals. Patient continues to present with impairments in overall function, range of motion, and strength that interfere with . Current prognosis is Excellent due to: current objective clinical presentation, good overall health status, good support system/ coping skills . She will benefit from continued skilled therapy services to meet the updated goals for this plan of care as noted below. Goals for Episode of Care: created on 12/06/22 through 02/05/23 Goals updated on 01/17/2023. [place] in home exercise program. (Met) Patient will decrease pain rating by 2 points to meet minimal clinical important difference for numeric pain rating scale. (Partially Met) Patient will increase active ROM of R shld to symmetrical and WNL for all planes to allow pt to to improve performance of ADLs. (Partially Met)-improved Patient will demonstrate increase in R UE strength to 4+ to 5/5 during manual muscle testing in order to improve function for home management tasks, prior functional tasks, and work tasks. (Partially Met) Perform feeding self; all ADLs and required work activities with R UE without pain. (Partially Met)- no pain, but not 100% yet Improve postural awareness. (Met) Patient Goals: To get movement back in my arm. Planned Interventions, Frequency, and Duration: 1x/week, 4 weeks Total Number of Visits Planned: 4 Patient to be seen for Therapeutic exercise ([id number]), Neuromuscular re-education ([id number]), Self-group home management ([id number]), Patient/Family/Caregiver Education, Manual therapy ([id number]) PLAN FOR NEXT VISIT: Assess response of increased resistive exercises. Continue to progress shld and scapular strengthening and shld AROM to fully meet al functional goals. SUBJECTIVE: Pt notes her shoulder is improving and she is compliant with HEP. Pain: Pain Pain Level: 2 Pain Location: Shoulder - Right Description: Aching, Dull Post Treatment Pain Post Treatment Pain Level: 0 Post Treatment Pain Location: Shoulder - Right Post Treatment Symptoms: fatigued PROMIS Scales Higher is Better 01/03/2023 12/03/2022 05/28/2022 Phys Func - Score 35 (moderate dysfunction) 30 (moderate dysfunction) 38 (moderate dysfunction) Phys Func - Percentile 7% 2% 12% Self-Eff Symptom - Score 46 (Average) 39 (Low) 41 (Average) Self-Eff Symptom - Percentile 34% 14% 18% T-scores: mean of general population = 50. 5 points is clinically meaningfully difference Percentiles provide an indication of how the patient's score ranks in relation to the general population. Higher percentile rankings indicate better function/quality of life. 50th percentile is the average of the general population and indicates half of respondents had a worse score. OBJECTIVE MEASURES WITH LEVEL OF FUNCTION: UE AROM R Shoulder Flex: 145 Degrees (end range tightness) R Shoulder ABduction: 115 Degrees (tightness) R Shoulder Internal Rotation (Functional): back of hand to sacrum (end range tightness) R Shoulder External Rotation: 45 Degrees R Elbow Extension: 3 Degrees (hyperextension) R Elbow Flexion: 140 Degrees R Forearm Supination: 100 Degrees R Forearm Pronation: 95 Degrees L Shoulder Flex: 160 Degrees L Shoulder ABduction: 180 Degrees L Elbow Extension: 2 (hyperextension) L Elbow Flexion: 140 Degrees L Forearm Supination: 100 Degrees L Forearm Pronation: 90 Degrees UE and Cervical Strength Strength Tested: Shoulder All R Shoulder Flexion: 4+/5 R Shoulder Abduction (C5): 4+/5 R Shoulder Internal Rotation: 4+/5 R Shoulder External Rotation: 4/5 R Elbow Flexion (C6): 4+/5 L Shoulder Flexion: 5/5 L Shoulder Abduction (C5): 5/5 L Shoulder Internal Rotation: 5/5 L Shoulder External Rotation: 4+/5 L Elbow Flexion (C6): 5/5 TREATMENT: Therapeutic Exercise: 1: Seated shld pulleys for flexion, abduction, scaption, and IR 2x10 2: Wall slides 2x10 for flexion 3: Ball on wall (2#) CW and CCW 2x10 each 4: *bicep curls 1# x 10, 2# x10 5: *green band scapular retractions 2 x 10 6: *green band IR 2 x 10 7: *green band ER 2 x 10 Skilled Intervention: Patient was educated in proper exercise technique and purpose for exercises. Reviewed and educated patient on additions/changes for home exercise program as above (*). Skilled judgment was used in selection of appropriate interventions. Provided written instruction for home exercise program to facilitate proper performance and compliance. Correct performance of therapeutic exercises was facilitated with verbal and visual cuing. Additional time necessary for objective measurements and reassessment due to plan of care update. Patient education as noted. Billing Therapeutic Exercise Treatment Minutes: 37 Skilled Treatment Time Minutes (timed and untimed codes): 37 Total Session Time (minutes): 37 Session Start Time : 1723 Session Stop Time : 1800 Vicki Wallace PT documented in this encounter [facility] 01-12-2023 Note HNO ID: [id number] Author: Vangie Ballard PT Service: ? Author Type: Physical Therapist Type: Progress Notes Filed: 01/13/2023 7:49 AM Note Text: Episode Visit Count: 7 Therapist That Will Accept/Oversee The Plan Of Care: Vicki Wallace Start of Care Date: 12/06/22 Onset Date: 11/29/22 (original symptom onset 5-6 years ago) Patient Identified by Name and Date of : Yes REHABILITATION AND SPORTS THERAPY PHYSICAL THERAPY TREATMENT NOTE ASSESSMENT: Suzy Sue tolerated the session with decreased symptoms. She demonstrated improvements in tolerance to AAROM exercise without increase in pain. The patient will continue to benefit from ongoing skilled physical therapy to progress toward set goals. PLAN FOR NEXT VISIT: Asses response to additional AROM and AAROM of R shoulder SUBJECTIVE: Pt rpeorts that her shoudler is feeling fine today, just a little tight. Pain: Pain Pain Level: 0 Pain Location: Shoulder - Right Post Treatment Pain Post Treatment Pain Level: 0 Post Treatment Pain Location: Shoulder - Right OBJECTIVE MEASURES WITH LEVEL OF FUNCTION: TREATMENT: Therapeutic Exercise: 1: Seated shld pulleys for flexion, abduction, scaption, and IR 2x10 2: Wall slides 2x10 for flexion 3: Ball on wall CW and CCW 2x10 each 4: Wall alphabet in pain-free range A-Z x 2 5: Seated wand flexion 3x10 6: Seated wand ER 3x10 7: Standing abduction with wand 3x10 8: Standing shoulder isometrics: ER,IR, Add, ABD, flexion, extension x10 with 5 second holds 9: PROM R shoulder ER and flexion 2x10 Skilled Intervention: Patient was educated in proper exercise technique and purpose for exercises. Skilled judgment was used in selection of appropriate interventions. Correct performance of therapeutic exercises was facilitated with verbal and visual cuing. Billing Therapeutic Exercise Treatment Minutes: 43 Skilled Treatment Time Minutes (timed and untimed codes): 43 Total Session Time (minutes): 43 Session Start Time : 1717 Session Stop Time : 1800 Vanessa Burr, SHIRLEY Ballard, PT [facility] 01-12-2023 History of Presen t illness Narrative Episode Visit Count: 7 Therapist That Will Accept/Oversee The Plan Of Care: Vicki Wallace Start of Care Date: 12/06/22 Onset Date: 11/29/22 (original symptom onset 5-6 years ago) Patient Identified by Name and Date of : Yes REHABILITATION AND SPORTS THERAPY PHYSICAL THERAPY TREATMENT NOTE ASSESSMENT: Suzy Sue tolerated the session with decreased symptoms. She demonstrated improvements in tolerance to AAROM exercise without increase in pain. The patient will continue to benefit from ongoing skilled physical therapy to progress toward set goals. PLAN FOR NEXT VISIT: Asses response to additional AROM and AAROM of R shoulder SUBJECTIVE: Pt rpeorts that her shoudler is feeling fine today, just a little tight. Pain: Pain Pain Level: 0 Pain Location: Shoulder - Right Post Treatment Pain Post Treatment Pain Level: 0 Post Treatment Pain Location: Shoulder - Right OBJECTIVE MEASURES WITH LEVEL OF FUNCTION: TREATMENT: Therapeutic Exercise: 1: Seated shld pulleys for flexion, abduction, scaption, and IR 2x10 2: Wall slides 2x10 for flexion 3: Ball on wall CW and CCW 2x10 each 4: Wall alphabet in pain-free range A-Z x 2 5: Seated wand flexion 3x10 6: Seated wand ER 3x10 7: Standing abduction with wand 3x10 8: Standing shoulder isometrics: ER,IR, Add, ABD, flexion, extension x10 with 5 second holds 9: PROM R shoulder ER and flexion 2x10 Skilled Intervention: Patient was educated in proper exercise technique and purpose for exercises. Skilled judgment was used in selection of appropriate interventions. Correct performance of therapeutic exercises was facilitated with verbal and visual cuing. Billing Therapeutic Exercise Treatment Minutes: 43 Skilled Treatment Time Minutes (timed and untimed codes): 43 Total Session Time (minutes): 43 Session Start Time : 1717 Session Stop Time : 1800 SHIRLEY Aguirre PT documented in this encounter [facility] 01-10-2023 Note HNO ID: [id number] Author: Vicki Wallace PT Service: ? Author Type: Physical Therapist Type: Progress Notes Filed: 01/10/2023 8:41 PM Note Text: Episode Visit Count: 6 Therapist That Will Accept/Oversee The Plan Of Care: Vicki Wallace Start of Care Date: 12/06/22 Onset Date: 11/29/22 (original symptom onset 5-6 years ago) Patient Identified by Name and Date of : Yes REHABILITATION AND SPORTS THERAPY PHYSICAL THERAPY TREATMENT NOTE ASSESSMENT: Suzy Sue tolerated the session with fatigue. She demonstrated improvements in tolerance to isometrics without increase in shoulder pain. The patient will continue to benefit from ongoing skilled physical therapy to progress toward set goals. PLAN FOR NEXT VISIT: Continue with isometrics, possibly wall slides or wall alphabet SUBJECTIVE: Pt reports that she saw Dr. Schmitz and he is pleased with ehr progress. Pt does not have to have another follow up with Dr. Schmitz, unless needed.She states her shoudler isfeeling good today. Pain: Pain Pain Level: 0 Pain Location: Shoulder - Right Post Treatment Pain Post Treatment Pain Level: 0 Post Treatment Pain Location: Shoulder - Right OBJECTIVE MEASURES WITH LEVEL OF FUNCTION: TREATMENT: Therapeutic Exercise: 1: Seated shld pulleys for flexion, abduction, scaption, and IR 2x10 2: Seated wand flexion 2x10 3: *Standing shoulder isometrics: ER,IR, Add, ABD, flexion, extension x5 with 5 second holds 4: Seated wand ER 2x10 5: Standing abduction with wand 2x10 Skilled Intervention: Patient was educated in proper exercise technique and purpose for exercises. Reviewed and educated patient on additions/changes for home exercise program as above (*). Skilled judgment was used in selection of appropriate interventions. Provided written instruction for home exercise program to facilitate proper performance and compliance. Correct performance of therapeutic exercises was facilitated with verbal and visual cuing. Billing Therapeutic Exercise Treatment Minutes: 33 Skilled Treatment Time Minutes (timed and untimed codes): 33 Total Session Time (minutes): 33 Session Start Time : 1718 Session Stop Time : 1751 Vanessa Burr, MD ALLERGY IMMUNOLOGY Vicki Wallace, PT [facility] 01-10-2023 History of Presen t illness Narrative Program_ID:[id number] Access Code: [email or web address] URL: [email or web address] Date: 01-10-2023 Prepared By: Vicki Wallace Program Notes Exercises - Circular Shoulder Pendulum with Table Support - 2-3 x daily - 7 x weekly - - 20-25 - Flexion-Extension Shoulder Pendulum with Table Support - 2-3 x daily - 7 x weekly - - 20-25 - Horizontal Shoulder Pendulum with Table Support - 2-3 x daily - 7 x weekly - - 20-25 - Supported Elbow Flexion Extension PROM - 2 x daily - 7 x weekly - 2 - 10 - Elbow Extension PROM - 2 x daily - 7 x weekly - - 5 - Seated Wrist Flexion PROM Stretch - 2 x daily - 7 x weekly - 2 - 10 - Seated Wrist Extension PROM - 2 x daily - 7 x weekly - 2 - 10 - Seated Wrist Supination PROM - 2 x daily - 7 x weekly - 2 - 10 - gripping and finger extension - 2 x daily - 7 x weekly - 2 - 10 - Supine Shoulder External Rotation with Dowel - 2 x daily - 7 x weekly - 2 - 10 - Supine Shoulder Flexion Passive ROM with wand - 2 x daily - 7 x weekly - 2 - 10 - Isometric Shoulder Flexion at Wall - 1 x daily - 7 x weekly - 2 - 10 - Isometric Shoulder Extension at Wall - 1 x daily - 7 x weekly - 2 - 10 - Isometric Shoulder Abduction at Wall - 1 x daily - 7 x weekly - 2 - 10 - Standing Isometric Shoulder External Rotation with Doorway - 1 x daily - 7 x weekly - 2 - 10 - Standing Isometric Shoulder Internal Rotation with Towel Roll at Doorway - 1 x daily - 7 x weekly - 2 - 10 - Isometric Shoulder Adduction - 1 x daily - 7 x weekly - 2 - 10 Episode Visit Count: 6 Therapist That Will Accept/Oversee The Plan Of Care: Vicki Wallace Start of Care Date: 12/06/22 Onset Date: 11/29/22 (original symptom onset 5-6 years ago) Patient Identified by Name and Date of : Yes REHABILITATION AND SPORTS THERAPY PHYSICAL THERAPY TREATMENT NOTE ASSESSMENT: Suzy Sue tolerated the session with fatigue. She demonstrated improvements in tolerance to isometrics without increase in shoulder pain. The patient will continue to benefit from ongoing skilled physical therapy to progress toward set goals. PLAN FOR NEXT VISIT: Continue with isometrics, possibly wall slides or wall alphabet SUBJECTIVE: Pt reports that she saw Dr. Schmitz and he is pleased with ehr progress. Pt does not have to have another follow up with Dr. Schmitz, unless needed.She states her shoudler isfeeling good today. Pain: Pain Pain Level: 0 Pain Location: Shoulder - Right Post Treatment Pain Post Treatment Pain Level: 0 Post Treatment Pain Location: Shoulder - Right OBJECTIVE MEASURES WITH LEVEL OF FUNCTION: TREATMENT: Therapeutic Exercise: 1: Seated shld pulleys for flexion, abduction, scaption, and IR 2x10 2: Seated wand flexion 2x10 3: *Standing shoulder isometrics: ER,IR, Add, ABD, flexion, extension x5 with 5 second holds 4: Seated wand ER 2x10 5: Standing abduction with wand 2x10 Skilled Intervention: Patient was educated in proper exercise technique and purpose for exercises. Reviewed and educated patient on additions/changes for home exercise program as above (*). Skilled judgment was used in selection of appropriate interventions. Provided written instruction for home exercise program to facilitate proper performance and compliance. Correct performance of therapeutic exercises was facilitated with verbal and visual cuing. Billing Therapeutic Exercise Treatment Minutes: 33 Skilled Treatment Time Minutes (timed and untimed codes): 33 Total Session Time (minutes): 33 Session Start Time : 1718 Session Stop Time : 175 SHIRLEY Aguirre PT documented in this encounter [facility] 01-10-2023 Note HNO ID: [id number] Author: Cristina Cervantes RN Service: ? Author Type: Registered Nurse Type: Progress Notes Filed: 01/10/2023 1:37 PM Note Text: INITIAL OB ASSESSMENT OB Provider: Cristina Cervantes RN HPI: Alisa is a 27 year old White Female here to establish Obstetrical Care. Patient's last menstrual period was 11/18/2022 (exact date). from OB Dating Form. Cycles regular was unplanned but accepted Complaints: None OB History T0 L0 SAB0 IAB0 Ectopic0 Multiple0 Live Births0 Patient's Risk Screening for delivery: Have you had a prior cottrell between 20w and 36w6d?: No MEDICAL/PSYCHOSOCIAL HISTORY: History of hemorrhage or bleeding concerns: No Thyroid Disease: No History of chronic hypertension: No History of pre-existing diabetes: No No results found for: ABORHD No weight on file for this encounter. History of abnormal pap: No Prior treatment for cervical dysplasia: none. 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 I don't have enough money to pay my bills: Sometimes Within the past 12 months, have you worried that your food would run out before you had money to buy more: Rarely In the past 12 months, has lack of reliable transportation kept you from going to medical appointments or work, or from keeping things needed for daily living: Never In the past 12 months, have you had any concerns about having a place to live, or about the condition or quality of your housing: Never Are there any cultural or spiritual needs we should be aware of: No Depression/Anxiety Screening: denies symptoms of depression. OB Depression and Anxiety Screening- This Encounter (since 01/09/2023) Over the past 2 weeks have you felt down, depressed, or hopeless? Negative Over the past two weeks, have you felt little interest or pleasure in doing things?? Negative Feeling nervous, anxious or on edge 0-Not at all Not being able to stop or control worrying 0-Not al all Anxiety Pre-Screening Total (If >/= 3 additional questions will be reviewed) 0 Genetic Screening: Partner present: No Patient verbalized knowledge of partner family health history: Yes Do you or your partner have any personal or family history of defects not previously discussed: No Do you have history of a complicated by anomaly, genetic condition, or demise: No ACOG Recommended Screening Screening for early gestational diabetes testing: Criteria for early testing requires elevated BMI plus one other risk factor: No weight on file for this encounter. (risk factor if > than 25 or 23 in Americans) Additional risk factors: None She does meet ACOG criteria for early gestational DM screening. Screening for low dose aspirin use for the prevention of pre-eclampsia: Low dose aspirin should be considered if the patient has one high or two moderate risk factors: High risk factors: None Moderate risk ractors: Nulliparity and Obesity (body mass index greater than 30) She does meet criteria for low dose ASA Marital Status: Partner: Name: Edi Sue Age: 24 Occupation: [employer] Gender: Male History of STDs: None PAST MEDICAL HISTORY Diagnosis Date Anxiety with depression Constipation Hyperlipidemia Obesity (BMI 35.0-39.9 without comorbidity) Osteochondroma s/p excision 2010 PAST SURGICAL HISTORY Procedure Laterality Date MIRENA removed 08/17/2021 PAST SURGICAL HISTORY OF 2010 osteochondroma L femur removal PAST SURGICAL HISTORY OF 2004 thyroglossal duct cyst removal PAST SURGICAL HISTORY OF Right shoulder Current Outpatient Medications Medication Sig Dispense Refill acetaminophen (TYLENOL EXTRA STRENGTH) 500 mg tablet Take 1,000 mg by mouth every 8 hours as needed. docusate sodium (COLACE) 100 mg capsule Take 1 capsule by mouth two times a day as needed for constipation. 60 capsule 2 ondansetron orally disintegrating (ZOFRAN ODT) 4 mg disintegrating tablet Take 1 tablet by mouth every 8 hours as needed for nausea/vomiting. 30 tablet 1 sertraline (ZOLOFT) 100 mg tablet Take 1 tablet by mouth once daily. 90 tablet 0 PNV no.95/ferrous fum/folic ac ( ORAL) Take by mouth. naproxen sodium (ALEVE) 220 mg tablet Take 220 mg by mouth two times a day as needed. (Patient not taking: Reported on 01/10/2023) No current facility-admini (more content not included)... [facility] 01-10-2023 Miscellaneous Notes DISTANCE HEALTH VISIT This Team Access Model visit is a phone encounter. It required patient-provider interaction for the medical decision making as documented below. I have communicated my name and active licensure. The patient's identity and physical location were verified at the time of this visit. Pt has a history of depression diagnosed about 1-1/2 years ago and treated by Dr. Campos. She believes she is doing well on medication Zoloft. Discussed increased risks of depression during and and importance of reporting the development or worsening of symptoms should they occur. Pt denies ever having any suicidal thoughts or tendencies or thoughts of hurting others. Patient is obese. We will plan on early hemoglobin A1c. Patient considering aneuploidy screening and genetic carrier screening testing. Contact information for [facility] and [facility] labs sent to patient in a [employer] message.Cristina Cervantes RN documented in this encounter [facility] 01-10-2023 History of Presen t illness Narrative INITIAL OB ASSESSMENT OB Provider: Cristina Cervantes RN HPI: Alisa is a 27 year old White Female here to establish Obstetrical Care. Patient's last menstrual period was 11/18/2022 (exact date). from OB Dating Form. Cycles regular was unplanned but accepted Complaints: None OB History T0 L0 SAB0 IAB0 Ectopic0 Multiple0 Live Births0 Patient's Risk Screening for delivery: Have you had a prior cottrell between 20w and 36w6d?: No MEDICAL/PSYCHOSOCIAL HISTORY: History of hemorrhage or bleeding concerns: No Thyroid Disease: No History of chronic hypertension: No History of pre-existing diabetes: No No results found for: ABORHD No weight on file for this encounter. History of abnormal pap: No Prior treatment for cervical dysplasia: none. 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 I don't have enough money to pay my bills: Sometimes Within the past 12 months, have you worried that your food would run out before you had money to buy more: Rarely In the past 12 months, has lack of reliable transportation kept you from going to medical appointments or work, or from keeping things needed for daily living: Never In the past 12 months, have you had any concerns about having a place to live, or about the condition or quality of your housing: Never Are there any cultural or spiritual needs we should be aware of: No Depression/Anxiety Screening: denies symptoms of depression. OB Depression and Anxiety Screening- This Encounter (since 01/09/2023) Over the past 2 weeks have you felt down, depressed, or hopeless? Negative Over the past two weeks, have you felt little interest or pleasure in doing things? Negative Feeling nervous, anxious or on edge 0-Not at all Not being able to stop or control worrying 0-Not al all Anxiety Pre-Screening Total (If >/= 3 additional questions will be reviewed) 0 Genetic Screening: Partner present: No Patient verbalized knowledge of partner family health history: Yes Do you or your partner have any personal or family history of defects not previously discussed: No Do you have history of a complicated by anomaly, genetic condition, or demise: No ACOG Recommended Screening Screening for early gestational diabetes testing: Criteria for early testing requires elevated BMI plus one other risk factor: No weight on file for this encounter. (risk factor if > than 25 or 23 in Americans) Additional risk factors: None She does meet ACOG criteria for early gestational DM screening. Screening for low dose aspirin use for the prevention of pre-eclampsia: Low dose aspirin should be considered if the patient has one high or two moderate risk factors: High risk factors: None Moderate risk ractors: Nulliparity and Obesity (body mass index greater than 30) She does meet criteria for low dose ASA Marital Status: Partner: Name: Edi Sue Age: 24 Occupation: [employer] Gender: Male History of STDs: None PAST MEDICAL HISTORY Diagnosis Date Anxiety with depression Constipation Hyperlipidemia Obesity (BMI 35.0-39.9 without comorbidity) Osteochondroma s/p excision 2010 PAST SURGICAL HISTORY Procedure Laterality Date MIRENA removed 08/17/2021 PAST SURGICAL HISTORY OF 2010 osteochondroma L femur removal PAST SURGICAL HISTORY OF 2004 thyroglossal duct cyst removal PAST SURGICAL HISTORY OF Right shoulder Current Outpatient Medications Medication Sig Dispense Refill acetaminophen (TYLENOL EXTRA STRENGTH) 500 mg tablet Take 1,000 mg by mouth every 8 hours as needed. docusate sodium (COLACE) 100 mg capsule Take 1 capsule by mouth two times a day as needed for constipation. 60 capsule 2 ondansetron orally disintegrating (ZOFRAN ODT) 4 mg disintegrating tablet Take 1 tablet by mouth every 8 hours as needed for nausea/vomiting. 30 tablet 1 sertraline (ZOLOFT) 100 mg tablet Take 1 tablet by mouth once daily. 90 tablet 0 PNV no.95/ferrous fum/folic ac ( ORAL) Take by mouth. naproxen sodium (ALEVE) 220 mg tablet Take 220 mg by mouth two times a day as needed. (Patient not taking: Reported on 01/10/2023) No current facility-administered medications for this visit. Allergies As of Date: 01/10/2023 Allergen Noted Reaction LATEX 09/13/2014 Anaphylaxis IBUPROFEN 09/13/2014 Unknown PROZAC [FLUOXETINE] 03/10/2021 Other: See Comments Fully Assessed 01/10/2023 Does patient have penicillin allergy: No documented in this encounter [facility] 01-07-2023 Note HNO ID: [id number] Author: Kayla Schmitz MD Service: ? Author Type: Physician Type: Progress Notes Filed: 01/07/2023 4:04 PM Note Text: PAIN EVALUATION 01/07/2023 1551 Pain Level: 2 Pain Location: Shoulder-Right Description: Dull;Incision;Tightness Duration Amount of Time: 5 Duration Units: Weeks Frequency: Intermittent Intervention/Comfort measure: Splinting;Cold;Medication;Relaxa tion;Reposition sling, Tyleonl PRN Comments: Limited ROM Suzy Sue presents today for: 2nd postoperative visit CHANGES SINCE LAST VISIT: Doing physical therapy with expected progress. LMP 11/18/2022 EXAMINATION FINDINGS: Range of motion improved to 120 elevation, 30 external rotation actively Passive range of motion testing shows improvement, no signs of capsulitis Mild discomfort at end range, otherwise no pain on exam today Good strength to elevation and rotation. IMAGING: No imaging today MEDICAL DECISION MAKING: Functional Plan: Physical therapy to continue 6-12 weeks for ROM Advance to 5 lbs restiction, ok to resume lifting after 6 more weeks Tylenol/NSAID use as needed Return as needed. Information for medical decision making today comes from review of the following data: History, exam, imaging Kayla Schmitz MD Shoulder AND Elbow Surgeon Department of Orthopaedic Surgery [facility] Medical Decision Making: Medical Decision Making Level: 1 - N/A [facility] 01-05-2023 Note HNO ID: [id number] Author: Vangie Ballard, PT Service: ? Author Type: Physical Therapist Type: Progress Notes Filed: 01/05/2023 6:52 PM Note Text: Episode Visit Count: 5 Therapist That Will Accept/Oversee The Plan Of Care: Vicki Wallace Start of Care Date: 12/06/22 Onset Date: 11/29/22 (original symptom onset 5-6 years ago) Patient Identified by Name and Date of : Yes REHABILITATION AND SPORTS THERAPY PHYSICAL THERAPY TREATMENT NOTE ASSESSMENT: Suzy Sue tolerated the session with expected muscle soreness. She demonstrated improvements in R shoulder flexion PROM . The patient will continue to benefit from ongoing skilled physical therapy to progress toward set goals. PLAN FOR NEXT VISIT: Consider wand exercises in stitting. Asses resposne to initiation of shoulder isometrics. SUBJECTIVE: Pt reports that her shoulder is feeling pretty good today. Pain: Pain Pain Level: 2 Pain Location: Shoulder - Right Description: Aching, Dull Post Treatment Pain Post Treatment Pain Level: No Change Post Treatment Pain Location: Shoulder - Right OBJECTIVE MEASURES WITH LEVEL OF FUNCTION: TREATMENT: Therapeutic Exercise: 1: Seated shld pulleys for flexion 2x10 2: Supine wand flexion 3x10 3: Supine wand ER 3x10 4: Supine wand abduction 3x10 5: Supine wand abduction 3x10 6: Supine PROM R shoulder flexion and ER 2x10 7: Scapular retractions 2x10 8: Seated IR isometric with wand with 0 degrees of abduction and 90 degrees of elbow flexion 5x5 second holds 9: Seated IR isometric with wand with 0 degrees of abduction and 90 degrees of elbow flexion 5x5 second holds Skilled Intervention: Patient was educated in proper exercise technique and purpose for exercises. Skilled judgment was used in selection of appropriate interventions. Correct performance of therapeutic exercises was facilitated with verbal and visual cuing. Billing Therapeutic Exercise Treatment Minutes: 30 Skilled Treatment Time Minutes (timed and untimed codes): 30 Total Session Time (minutes): 30 Session Start Time : 1805 Session Stop Time : 183 SHIRLEY Aguirre, PT [facility] 01-03-2023 Note HNO ID: [id number] Author: Vicki Wallace PT Service: ? Author Type: Physical Therapist Type: Progress Notes Filed: 01/03/2023 6:36 PM Note Text: Episode Visit Count: 4 Therapist That Will Accept/Oversee The Plan Of Care: Vicki Wallace Start of Care Date: 12/06/22 Onset Date: 11/29/22 (original symptom onset 5-6 years ago) Patient Identified by Name and Date of : Yes REHABILITATION AND SPORTS THERAPY PHYSICAL THERAPY TREATMENT NOTE ASSESSMENT: Suzy Sue tolerated the session with fatigue and expected muscle soreness. She demonstrated improvements in R shoulder PROM/AAROM flexion. The patient will continue to benefit from ongoing skilled physical therapy to progress toward set goals. PLAN FOR NEXT VISIT: Continue per protocol SUBJECTIVE: Pt reports that her shoulder is a little sore today, better than what it has been. Pain: Pain Pain Level: 3 Pain Location: Shoulder - Right Description: Aching, Dull Post Treatment Pain Post Treatment Pain Level: No Change Post Treatment Pain Location: Shoulder - Right OBJECTIVE MEASURES WITH LEVEL OF FUNCTION: UE PROM R Shoulder Flex: 144 Degrees (pt in supine; 131 with wand AAROM in supine) TREATMENT: Therapeutic Exercise: 1: Seated shld pulleys for flexion 2x10 2: Codman's pendulums all planes 2x10 3: Supine wand flexion 3x10 4: Supine wand ER 3x10 5: Supine wand abduction 3x10 6: Supine PROM R shoulder flexion and ER 2x10 7: Supine PROM R ER of shoulder 2x 10 Skilled Intervention: Patient was educated in proper exercise technique and purpose for exercises. Skilled judgment was used in selection of appropriate interventions. Correct performance of therapeutic exercises was facilitated with verbal and visual cuing. Billing Therapeutic Exercise Treatment Minutes: 33 Skilled Treatment Time Minutes (timed and untimed codes): 33 Total Session Time (minutes): 33 Session Start Time : 1720 Session Stop Time : 175 Vanessa Burr, SHIRLEY Wallace, PT [facility] 01-03-2023 History of Presen t illness Narrative Episode Visit Count: 4 Therapist That Will Accept/Oversee The Plan Of Care: Vicki Wallace Start of Care Date: 12/06/22 Onset Date: 11/29/22 (original symptom onset 5-6 years ago) Patient Identified by Name and Date of : Yes REHABILITATION AND SPORTS THERAPY PHYSICAL THERAPY TREATMENT NOTE ASSESSMENT: Suzy Sue tolerated the session with fatigue and expected muscle soreness. She demonstrated improvements in R shoulder PROM/AAROM flexion. The patient will continue to benefit from ongoing skilled physical therapy to progress toward set goals. PLAN FOR NEXT VISIT: Continue per protocol SUBJECTIVE: Pt reports that her shoulder is a little sore today, better than what it has been. Pain: Pain Pain Level: 3 Pain Location: Shoulder - Right Description: Aching, Dull Post Treatment Pain Post Treatment Pain Level: No Change Post Treatment Pain Location: Shoulder - Right OBJECTIVE MEASURES WITH LEVEL OF FUNCTION: UE PROM R Shoulder Flex: 144 Degrees (pt in supine; 131 with wand AAROM in supine) TREATMENT: Therapeutic Exercise: 1: Seated shld pulleys for flexion 2x10 2: Codman's pendulums all planes 2x10 3: Supine wand flexion 3x10 4: Supine wand ER 3x10 5: Supine wand abduction 3x10 6: Supine PROM R shoulder flexion and ER 2x10 7: Supine PROM R ER of shoulder 2x 10 Skilled Intervention: Patient was educated in proper exercise technique and purpose for exercises. Skilled judgment was used in selection of appropriate interventions. Correct performance of therapeutic exercises was facilitated with verbal and visual cuing. Billing Therapeutic Exercise Treatment Minutes: 33 Skilled Treatment Time Minutes (timed and untimed codes): 33 Total Session Time (minutes): 33 Session Start Time : 1720 Session Stop Time : 175 Vanessa Burr, MD ALLERGY IMMUNOLOGY Vicki Wallace PT documented in this encounter [facility] 12-28-2022 Note HNO ID: [id number] Author: Vangie Ballard PT Service: ? Author Type: Physical Therapist Type: Progress Notes Filed: 12/28/2022 4:31 PM Note Text: Episode Visit Count: 3 Therapist That Will Accept/Oversee The Plan Of Care: Vicki Wallace Start of Care Date: 12/06/22 Onset Date: 11/29/22 (original symptom onset 5-6 years ago) Patient Identified by Name and Date of : Yes REHABILITATION AND SPORTS THERAPY PHYSICAL THERAPY TREATMENT NOTE ASSESSMENT: Suzy Sue tolerated the session with fatigue and expected muscle soreness. She demonstrated improvements in R elbow extension. The patient will continue to benefit from ongoing skilled physical therapy to progress toward set goals. PLAN FOR NEXT VISIT: Continue per protocol SUBJECTIVE: Pt reports that her shoudler is feeling pretty good today. Pt reports a little pain, but not terrible. Pain: Pain Pain Level: 2 Pain Location: Shoulder - Right Description: Aching, Dull Frequency: Continuous OBJECTIVE MEASURES WITH LEVEL OF FUNCTION: UE PROM R Shoulder External Rotation: 40 Degrees TREATMENT: Therapeutic Exercise: 1: Seated shld pulleys for flexion 2x10 2: Codman's pendulums all planes 2x10 3: Supine wand flexion 3x10 4: Supine wand ER 3x10 5: Supine wand abduction 3x10 6: Supine PROM R shoulder flexion and ER 2x10 7: Supine PROM R shelbow extension x 10 Skilled Intervention: Patient was educated in proper exercise technique and purpose for exercises. Skilled judgment was used in selection of appropriate interventions. Correct performance of therapeutic exercises was facilitated with verbal and visual cuing. Billing Therapeutic Exercise Treatment Minutes: 38 Skilled Treatment Time Minutes (timed and untimed codes): 38 Total Session Time (minutes): 38 Session Start Time : 1530 Session Stop Time : 1608 Vanessa Sheikhroro, MD ALLERGY IMMUNOLOGY Vangie Ballard, PT [facility] 12-20-2022 Note HNO ID: [id number] Author: Vicki Wallace, PT Service: ? Author Type: Physical Therapist Type: Progress Notes Filed: 12/20/2022 5:07 PM Note Text: Episode Visit Count: 2 Therapist That Will Accept/Oversee The Plan Of Care: Vicki Wallace Start of Care Date: 12/06/22 Onset Date: 11/29/22 (original symptom onset 5-6 years ago) Patient Identified by Name and Date of : Yes REHABILITATION AND SPORTS THERAPY PHYSICAL THERAPY TREATMENT NOTE ASSESSMENT: Suzy Sue tolerated the session with no issues. She demonstrated improvements in elbow AROM, progression of exercises, and decreased pain. The patient will continue to benefit from ongoing skilled physical therapy to progress toward set goals. PLAN FOR NEXT VISIT: Continue to progress per protocol. May issue shld pulleys for HEP. SUBJECTIVE: Pt reports HEP is going well and shoulder is only a little painful today. Pain: Pain Pain Level: 5 Pain Location: Shoulder - Right Description: Aching, Dull Frequency: Continuous OBJECTIVE MEASURES WITH LEVEL OF FUNCTION: UE AROM R Elbow Extension: 0 Degrees R Forearm Supination: 100 Degrees R Forearm Pronation: 95 Degrees UE PROM R Shoulder Flex: 110 Degrees (during shld pulleys) TREATMENT: Therapeutic Exercise: 1: Codman's pendulums all planes 2: PROM elbow flex, ext, forearm pronation/supination 3: PROM wrist flex/ext 4: gripping and finger ext AROM 5: *supine PROM shld flex using wand 2 x 10 6: *supine PROM ER with wand 2 x 10 7: seated shld pulleys for flexion 8: Therapist performed passive ROM R shld ER and scaption with pt in supine Skilled Intervention: Patient was educated in proper exercise technique and purpose for exercises. Reviewed and educated patient on additions/changes for home exercise program as above (*). Skilled judgment was used in selection of appropriate interventions. Provided written instruction for home exercise program to facilitate proper performance and compliance. Correct performance of therapeutic exercises was facilitated with verbal and visual cuing. Patient education as noted. Billing Therapeutic Exercise Treatment Minutes: 43 Skilled Treatment Time Minutes (timed and untimed codes): 43 Total Session Time (minutes): 43 Session Start Time : 1617 Session Stop Time : 1700 Vicki Wallace PT [facility] 12-20-2022 History of Presen t illness Narrative Program_ID:[id number] Access Code: [email or web address] URL: [email or web address] Date: 12-20-2022 Prepared By: Vicki Wallace Program Notes Exercises - Circular Shoulder Pendulum with Table Support - 2-3 x daily - 7 x weekly - - 20-25 - Flexion-Extension Shoulder Pendulum with Table Support - 2-3 x daily - 7 x weekly - - 20-25 - Horizontal Shoulder Pendulum with Table Support - 2-3 x daily - 7 x weekly - - 20-25 - Supported Elbow Flexion Extension PROM - 2 x daily - 7 x weekly - 2 - 10 - Elbow Extension PROM - 2 x daily - 7 x weekly - - 5 - Seated Wrist Flexion PROM Stretch - 2 x daily - 7 x weekly - 2 - 10 - Seated Wrist Extension PROM - 2 x daily - 7 x weekly - 2 - 10 - Seated Wrist Supination PROM - 2 x daily - 7 x weekly - 2 - 10 - gripping and finger extension - 2 x daily - 7 x weekly - 2 - 10 - Supine Shoulder External Rotation with Dowel - 2 x daily - 7 x weekly - 2 - 10 - Supine Shoulder Flexion Passive ROM with wand - 2 x daily - 7 x weekly - 2 - 10 Episode Visit Count: 2 Therapist That Will Accept/Oversee The Plan Of Care: Vicki Wallace Start of Care Date: 12/06/22 Onset Date: 11/29/22 (original symptom onset 5-6 years ago) Patient Identified by Name and Date of : Yes REHABILITATION AND SPORTS THERAPY PHYSICAL THERAPY TREATMENT NOTE ASSESSMENT: Suzy Sue tolerated the session with no issues. She demonstrated improvements in elbow AROM, progression of exercises, and decreased pain. The patient will continue to benefit from ongoing skilled physical therapy to progress toward set goals. PLAN FOR NEXT VISIT: Continue to progress per protocol. May issue shld pulleys for HEP. SUBJECTIVE: Pt reports HEP is going well and shoulder is only a little painful today. Pain: Pain Pain Level: 5 Pain Location: Shoulder - Right Description: Aching, Dull Frequency: Continuous OBJECTIVE MEASURES WITH LEVEL OF FUNCTION: UE AROM R Elbow Extension: 0 Degrees R Forearm Supination: 100 Degrees R Forearm Pronation: 95 Degrees UE PROM R Shoulder Flex: 110 Degrees (during shld pulleys) TREATMENT: Therapeutic Exercise: 1: Codman's pendulums all planes 2: PROM elbow flex, ext, forearm pronation/supination 3: PROM wrist flex/ext 4: gripping and finger ext AROM 5: *supine PROM shld flex using wand 2 x 10 6: *supine PROM ER with wand 2 x 10 7: seated shld pulleys for flexion 8: Therapist performed passive ROM R shld ER and scaption with pt in supine Skilled Intervention: Patient was educated in proper exercise technique and purpose for exercises. Reviewed and educated patient on additions/changes for home exercise program as above (*). Skilled judgment was used in selection of appropriate interventions. Provided written instruction for home exercise program to facilitate proper performance and compliance. Correct performance of therapeutic exercises was facilitated with verbal and visual cuing. Patient education as noted. Billing Therapeutic Exercise Treatment Minutes: 43 Skilled Treatment Time Minutes (timed and untimed codes): 43 Total Session Time (minutes): 43 Session Start Time : 1617 Session Stop Time : 1700 Vicki Wallace PT documented in this encounter [facility] 12-10-2022 Note HNO ID: [id number] Author: Kayla Schmitz MD Service: ? Author Type: Physician Type: Progress Notes Filed: 12/10/2022 12:29 PM Note Text: PAIN EVALUATION 12/10/2022 1131 Pain Level: 4 Pain Location: Shoulder-Right Description: Aching;Dull Frequency: Intermittent Intervention/Comfort measure: Exercise;Cold;Medication;Support surface aleve Comments: PT started on 12/06/22, wearing sling Suzy Sue presents today for: First post-surgery follow up CHANGES SINCE LAST VISIT: Post-surgical recovery uneventful. Pain appropriately controlled with medication. States she feels better already compared to presurgical pain levels. Wearing sling most of the time. No falls or other injuries. LMP 11/18/2022 EXAMINATION FINDINGS: Mild shoulder edema and ecchymosis. Incisions healing without signs of infection. Mild discomfort with gentle passive range of motion within a limited range. Neurovascularly intact in the shoulder, elbow, wrist, and hand. IMAGING: No imaging today MEDICAL DECISION MAKING: Functional Plan: Physical therapy Phase 1 Lifting limit 1 pound or less, avoid sudden movements with the shoulder Sling use encouraged for comfort and to protect the shoulder when out of the house Wean use of pain medication. Ice the shoulder often. Tylenol/NSAID use encouraged. Return in 4 weeks for repeat examination. Information for medical decision making today comes from review of the following data: History, exam, imaging Kayla Schmitz MD Shoulder AND Elbow Surgeon Department of Orthopaedic Surgery [facility] Medical Decision Making: Medical Decision Making Level: 1 - N/A [facility] 12-10-2022 History of Presen t illness Narrative Images from the original note were not included. PAIN EVALUATION 12/10/2022 1131 Pain Level: 4 Pain Location: Shoulder-Right Description: Aching;Dull Frequency: Intermittent Intervention/Comfort measure: Exercise;Cold;Medication;Support surface aleve Comments: PT started on 12/06/22, wearing sling Suzy Sue presents today for: First post-surgery follow up CHANGES SINCE LAST VISIT: Post-surgical recovery uneventful. Pain appropriately controlled with medication. States she feels better already compared to presurgical pain levels. Wearing sling most of the time. No falls or other injuries. LMP 11/18/2022 EXAMINATION FINDINGS: Mild shoulder edema and ecchymosis. Incisions healing without signs of infection. Mild discomfort with gentle passive range of motion within a limited range. Neurovascularly intact in the shoulder, elbow, wrist, and hand. IMAGING: No imaging today MEDICAL DECISION MAKING: Functional Plan: Physical therapy Phase 1 Lifting limit 1 pound or less, avoid sudden movements with the shoulder Sling use encouraged for comfort and to protect the shoulder when out of the house Wean use of pain medication. Ice the shoulder often. Tylenol/NSAID use encouraged. Return in 4 weeks for repeat examination. Information for medical decision making today comes from review of the following data: History, exam, imaging Kayla Schmitz MD Shoulder & Elbow Surgeon Department of Orthopaedic Surgery [facility] Medical Decision Making: Medical Decision Making Level: 1 - N/A documented in this encounter [facility] 12-06-2022 Note HNO ID: [id number] Author: Vicki Wallace, PT Service: ? Author Type: Physical Therapist Type: Progress Notes Filed: 12/06/2022 7:18 PM Note Text: Episode Visit Count: 1 Therapist That Will Accept/Oversee The Plan Of Care: Vicki Wallace Start of Care Date: 12/06/22 Onset Date: 11/29/22 (original symptom onset 5-6 years ago) Patient Identified by Name and Date of : Yes REHABILITATION AND SPORTS THERAPY PHYSICAL THERAPY EVALUATION PLAN OF CARE: Assessment: Suzy Sue presents with diagnosis of bicipital tendinitis R shld and s/p arthroscopy shld biceps tenodesis that interferes with feeding self . She presents with impairments in overall function, range of motion, strength, and symptom management. PROMIS? (Patient-Reported Outcomes Measurement Information System) scores were reviewed and physical function domain and self efficacy domain identified as a rehabilitation concern. Prognosis for therapy is Excellent due to: current objective clinical presentation, good overall health status, good support system/ coping skills . She will benefit from skilled therapy services to meet the goals established for this plan of care as noted below. Goals for Episode of Care: created on 12/06/22 through 02/05/23 [place] in home exercise program. Patient will decrease pain rating by 2 points to meet minimal clinical important difference for numeric pain rating scale. Patient will increase active ROM of R shld to symmetrical and WNL for all planes to allow pt to to improve performance of ADLs. Patient will demonstrate increase in R UE strength to 4+ to 5/5 during manual muscle testing in order to improve function for home management tasks, prior functional tasks, and work tasks. Perform feeding self; all ADLs and required work activities with R UE without pain. Improve postural awareness. Patient Goals: To get movement back in my arm. Planned Interventions, Frequency, and Duration: Current Frequency: 2x/week Duration: 8 weeks Total Number of Visits Planned: 16 Planned Treatment Interventions: Therapeutic exercise (24714), Neuromuscular re-education ([id number]), Self-group home management ([id number]), Patient/Family/Caregiver Education, Manual therapy (75600) PLAN FOR NEXT VISIT: Assess performance adn response to HEP. May progress per protocol with addition of supine PROM (flex/scap/ER), pulleys. Patient demonstrates good understanding of plan of care and treatment. The above goals and plan of care were discussed and agreed upon by patient/family. SUBJECTIVE: Pt reports, It's been sore, but nothing crazy. Wearing sling 24 hours a day. (If seated with ice or when showering removes the sling.) Pt has been sleeping in the recliner to avoid rolling on it. Patient Goals: To get movement back in my arm. 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 .) Home Environment Patient Lives With: Spouse Intake Information: Prescription present Previous Treatment: Pain meds (Has not taken Percocet since Tuesday.) Pain: Pain Pain Level: 6 (5-6/10 today (has not taken any pain meds today)) Pain Location: Shoulder - Right (towards the back) Description: Aching, Dull Frequency: Continuous Post Treatment Pain Post Treatment Pain Level: (not stated) PROMIS Scales Higher is Better 12/03/2022 05/28/2022 05/01/2022 Phys Func - Score 30 (moderate dysfunction) 38 (moderate dysfunction) 36 (moderate dysfunction) Phys Func - Percentile 2 % 12 % 8 % Self-Eff Symptom - Score 39 (Low) 41 (Average) 39 (Low) Self-Eff Symptom - Percentile 14 % 18 % 14 % T-scores: mean of general population = 50. 5 points is clinically meaningfully difference Percentiles provide an indication of how the patient's score ranks in relation to the general population. Higher percentile rankings indicate better function/quality of life. 50th percentile is the average of the general population and indicates half of respondents had a worse score. OBJECTIVE MEASURES WITH LEVEL OF FUNCTION: UE AROM AROM - R Distal UE: yes R Elbow Extension: -12 Degrees R Elbow Flexion: 130 Degrees R Forearm Supination: 65 Degrees R Forearm Pronation: 85 Degrees AROM - L Distal UE: yes L Elbow Extension: 0 L Elbow Flexion: 135 Degrees L Forearm Supination: 100 Degrees L Forearm Pronation: 90 Degrees Education: Education Learning Preferences: Demonstration, Explanation Barriers: None Learning/educational needs: Home exercise program, Plan of Care Education Provided: Yes, see treatment interventions for education provided Education Provided To: Patient Education Mode/Type: Demonstration, Explanation/Discussion, Literature/Printed Materials, Performance Response to Education/Teach Back: States/Identifies, Return Demonstration TREATMENT: PT Treatment Interventions: Therapeutic Exerc (more content not included)... [facility] 12-06-2022 History of Presen t illness Narrative Episode Visit Count: 1 Therapist That Will Accept/Oversee The Plan Of Care: Vicki Wallace Start of Care Date: 12/06/22 Onset Date: 11/29/22 (original symptom onset 5-6 years ago) Patient Identified by Name and Date of : Yes REHABILITATION AND SPORTS THERAPY PHYSICAL THERAPY EVALUATION PLAN OF CARE: Assessment: Suzy Sue presents with diagnosis of bicipital tendinitis R shld and s/p arthroscopy shld biceps tenodesis that interferes with feeding self . She presents with impairments in overall function, range of motion, strength, and symptom management. PROMIS (Patient-Reported Outcomes Measurement Information System) scores were reviewed and physical function domain and self efficacy domain identified as a rehabilitation concern. Prognosis for therapy is Excellent due to: current objective clinical presentation, good overall health status, good support system/ coping skills . She will benefit from skilled therapy services to meet the goals established for this plan of care as noted below. Goals for Episode of Care: created on 12/06/22 through 02/05/23 [place] in home exercise program. Patient will decrease pain rating by 2 points to meet minimal clinical important difference for numeric pain rating scale. Patient will increase active ROM of R shld to symmetrical and WNL for all planes to allow pt to to improve performance of ADLs. Patient will demonstrate increase in R UE strength to 4+ to 5/5 during manual muscle testing in order to improve function for home management tasks, prior functional tasks, and work tasks. Perform feeding self; all ADLs and required work activities with R UE without pain. Improve postural awareness. Patient Goals: To get movement back in my arm. Planned Interventions, Frequency, and Duration: Current Frequency: 2x/week Duration: 8 weeks Total Number of Visits Planned: 16 Planned Treatment Interventions: Therapeutic exercise (65481), Neuromuscular re-education (04507), Self-group home management (72088), Patient/Family/Caregiver Education, Manual therapy (05547) PLAN FOR NEXT VISIT: Assess performance adn response to HEP. May progress per protocol with addition of supine PROM (flex/scap/ER), pulleys. Patient demonstrates good understanding of plan of care and treatment. The above goals and plan of care were discussed and agreed upon by patient/family. SUBJECTIVE: Pt reports, It's been sore, but nothing crazy. Wearing sling 24 hours a day. (If seated with ice or when showering removes the sling.) Pt has been sleeping in the recliner to avoid rolling on it. Patient Goals: To get movement back in my arm. 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 .) Home Environment Patient Lives With: Spouse Intake Information: Prescription present Previous Treatment: Pain meds (Has not taken Percocet since Tuesday.) Pain: Pain Pain Level: 6 (5-6/10 today (has not taken any pain meds today)) Pain Location: Shoulder - Right (towards the back) Description: Aching, Dull Frequency: Continuous Post Treatment Pain Post Treatment Pain Level: (not stated) PROMIS Scales Higher is Better 12/03/2022 05/28/2022 05/01/2022 Phys Func - Score 30 (moderate dysfunction) 38 (moderate dysfunction) 36 (moderate dysfunction) Phys Func - Percentile 2 % 12 % 8 % Self-Eff Symptom - Score 39 (Low) 41 (Average) 39 (Low) Self-Eff Symptom - Percentile 14 % 18 % 14 % T-scores: mean of general population = 50. 5 points is clinically meaningfully difference Percentiles provide an indication of how the patient's score ranks in relation to the general population. Higher percentile rankings indicate better function/quality of life. 50th percentile is the average of the general population and indicates half of respondents had a worse score. OBJECTIVE MEASURES WITH LEVEL OF FUNCTION: UE AROM AROM - R Distal UE: yes R Elbow Extension: -12 Degrees R Elbow Flexion: 130 Degrees R Forearm Supination: 65 Degrees R Forearm Pronation: 85 Degrees AROM - L Distal UE: yes L Elbow Extension: 0 L Elbow Flexion: 135 Degrees L Forearm Supination: 100 Degrees L Forearm Pronation: 90 Degrees Education: Education Learning Preferences: Demonstration, Explanation Barriers: None Learning/educational needs: Home exercise program, Plan of Care Education Provided: Yes, see treatment interventions for education provided Education Provided To: Patient Education Mode/Type: Demonstration, Explanation/Discussion, Literature/Printed Materials, Performance Response to Education/Teach Back: States/Identifies, Return Demonstration TREATMENT: PT Treatment Interventions: Therapeutic Exercise Evaluation Therapeutic Exercise: 1: *Codman's pendulums in flex/ex 2: *Codman's pendulum in lateral 3: *Codman's pendulum ex circles (CW, CCW) 4: *PROM elbow flex/ext 5: *elbow ext stretches in upright 6: *PROM forearm pronation 7: *PROM forearm supination 8: *PROM wrist flex 9: *PROM wrist ext 10: *gripping and finger ext Skilled Intervention: Patient was educated in proper exercise technique and purpose for exercises. Skilled judgment was used in selection of appropriate interventions. Provided written instruction for home exercise program to facilitate proper performance and compliance. Correct performance of therapeutic exercises was facilitated with verbal and visual cuing. Patient education as noted. Billing * Evaluation Low Complexity: 1 Unit Therapeutic Exercise Treatment Minutes: 20 Skilled Treatment Time Minutes (timed and untimed codes): 33 Total Session Time (minutes): 33 Session Start Time : 1717 Session Stop Time : 1750 Vicki Wallace PT documented in this encounter [facility] 11-29-2022 Note HNO ID: [id number] Author: Ken Andrew APRN.DRY END TESTER Service: Anesthesiology Author Type: Nurse Web Design Instructor Type: Anesthesia Procedure Notes Filed: 11/29/2022 4:50 PM Note Text: ANESTHESIOLOGY PROCEDURE NOTE Airway General Information Procedure Start Time/Medication Administration: 11/29/2022 4:27 PM Procedure End Time: 11/29/2022 4:30 PM Patient location during procedure: OR Timeout Performed Pre-procedure: timeout performed Consent Obtained: Yes Patient identity confirmed: arm band and patient Staffing DRY END TESTER: Ken Andrew APRN.DRY END TESTER Indications and Patient Condition Indications for airway management: anesthesia Preoxygenated: yes anesthesia circuit Patient position: sniffing Method: asleep Cricoid Pressure: No Manual In-Line Stabilization: No Difficult Mask: No Final Airway Details Final airway type: endotracheal airway Final Endotracheal Airway: ETT Cuffed: yes Successful intubation technique: direct laryngoscopy Endotracheal tube insertion site: oral Blade: Savita Blade size: #3 ETT size (mm): 7.0 Measured from: gums Measurement (cm): 23 Placement verified by: chest auscultation and capnometry Cormack-Lehane Classification: grade I - full view of glottis Number of attempts at approach: 1 Failed airway: no Unrecognized esophageal intubation: no Airway not difficult SIGNATURE: Ken Andrew APRN.CRNA PATIENT NAME: Suzy Sue DATE: November 29, 2022 TIME: 4:49 PM CSN: [id number] [facility] 11-29-2022 Note HNO ID: [id number] Author: Edi Claros DO Service: Anesthesiology Author Type: Physician Type: Anesthesia Procedure Notes Filed: 11/29/2022 2:38 PM Note Text: ANESTHESIOLOGY PROCEDURE NOTE Peripheral Nerve Block General Information Procedure Start Time/Medication Administration: 11/29/2022 2:25 PM Procedure End time: 11/29/2022 2:35 PM Patient location during procedure: pre-op Timeout Performed Pre-procedure: timeout performed Consent Obtained: Yes Patient identity confirmed: arm band, 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 Reason for block: post-op pain management/at surgeon's request Staffing Anesthesiologist: Edi Claros DO SRNA: Kayla Rodgers SRNA Performed by: anesthesiologist and SRNA Preparation Sterility Preparation: hand hygiene performed prior to procedure, sterile gloves, drapes, and procedure tray, surgical cap used, mask used, sterile drape used during line insertion, skin prep agent completely dried prior to procedure Site Prep: Chloraprep Pre-Procedure Neuro Exam Location: RUE Sensory: intact Motor: intact Procedure Details Patient Position: supine Monitoring: Pulse OX, EKG and NIBP Block Type Upper Extremity: brachial plexus Approach: interscalene Laterality: right Injection Technique: single-shot Ultrasound Guided: Yes Image in Chart: yes Needle Needle Type: echogenic Needle Gauge: 21 G Needle Length: 100 mm Needle Localization: ultrasound and anatomical landmarks Assessment Injection assessment: negative aspiration, no paresthesia on injection, incremental injection and local visualized surrounding nerve on ultrasound Paresthesia: none Post-Procedure Neuro Exam Expected Regional Anesthesia: Yes Medications Administered ropivacaine (PF) 5 mg/mL (0.5 %) injection (NAROPIN) - peripheral nerve block 12 mL - 11/29/2022 2:25:00 PM dexamethasone sodium phosphate injection (DECADRON) - peripheral nerve block 4 mg - 11/29/2022 2:25:00 PM SIGNATURE: Edi Claros DO PATIENT NAME: Suzy Sue DATE: November 29, 2022 TIME: 2:36 PM CSN: [id number] [facility] 11-29-2022 Note HNO ID: [id number] Author: Vangie Colin RN Service: Nursing Author Type: Registered Nurse Type: Nursing Progress Note Filed: 11/29/2022 11:33 AM Note Text: Other: pt ready for OR, call light in reach, family called to bedside. [facility] 11-24-2022 Miscellaneous Notes Sent a [employer] message asking pt to call the office to schedule an apt. Martita Pinon LPN Patient has been identified by name and date of : Yes, Provider Dr. Campos Date 11/24/22 Time 8:19 am Patient phones for refill(s): Requested Prescriptions Pending Prescriptions Disp Refills sertraline (ZOLOFT) 100 mg tablet 90 tablet 0 Sig: Take 1 tablet by mouth once daily. Date of last office visit in primary care: 09/09/2021 Date of next office visit in primary care: Visit date not found Last 2 Encounter Wt Readings: Date: Wt: 11/16/2022 97.5 kg (215 lb) 04/06/2022 102.1 kg (225 lb) Previous labs/tests for medication: Not applicable Thank you. Martita Pinon LPN. documented in this encounter [facility] 11-16-2022 Instructions Caridad Suarez APRN.PAST DUE ACCOUNTS CLERK - 11/16/2022 7:13 PM EDT PATIENT PREOPERATIVE INSTRUCTIONS Kayla Schmitz,* has scheduled you for your procedure at this surgery center: [facility]: [phone] -- [address] [facility] [address]. Please read below carefully for your personalized instructions. Dietary Restrictions: - No solid food after midnight. - You may have 12 ounces of clear liquids (water, clear juices such as apple juice or gatorade, carbonated beverages, clear tea, black coffee, jello) until 2 hours before scheduled arrival at facility. Medications: Unless instructed differently below, stay on all of your medications until your surgery. If you start any new medications after today's visit, please contact your surgeon. Pre-Surgery Med Instructions Medication Instructions sertraline (ZOLOFT) 100 mg tablet Take the day of surgery with a small sip of water If you start any new medications after today's visit, please contact the surgeon's office. Blood Thinning Medications: - Stop NSAIDS (Ibuprofen, Advil, Aleve, Motrin, Celebrex, Mobic, etc.) 7 days before surgery, as directed by your surgeon. - Stop Aspirin 7 days before surgery, as directed by your surgeon. - Stop Vitamin E, ALL multi-vitamins, herbals and dietary supplements 7 days before surgery. - You may take Tylenol (Acetaminophen) or any of your pain medications that do not contain aspirin or NSAIDS as needed. Important Reminders: - Candy, mints, and tobacco products are NOT permitted the morning of surgery. - Hearing aids, dentures and glasses may be worn the morning of surgery. - NO jewelry, body piercings, makeup, hairpins or contacts are to be worn the day of surgery. If you develop symptoms such as a fever, cold, or flu, or have other changes to your health within TWO DAYS of scheduled surgery or the morning of surgery, please contact the surgery center above. Personal Belongings: -Please have photo ID and insurance cards. -If you do not have a copy of advance directives on file with us, please bring a copy with you on the day of surgery. - Leave ALL valuables and money at home or with family members. For Outpatient Procedures: - YOU MUST HAVE A RESPONSIBLE FOREST FIRE MANAGEMENT OFFICER TAKE YOU HOME. A HANDSTITCHING MACHINE ARMHOLE FELLER OR MARINE STRUCTURAL DESIGNER CANNOT BE MADE A RESPONSIBLE FOREST FIRE MANAGEMENT OFFICER. - We recommend that a responsible person stays with you overnight to take care of you. - You cannot stay in a hotel alone after outpatient surgery. You will not be permitted to have your surgery, if you do not have someone to take care of you. Arrival Time for Surgery: - The Surgery Center or hospital where you are having surgery will call the afternoon before surgery (or Tuesday for Tuesday surgery) with a scheduled arrival time. - If you have not heard by 4 pm, please contact the surgery center above. Please be aware that emergency situations arise, which may delay or change your surgical time. If this happens, we will notify you as soon as possible and regret any inconvenience. If you already have an Advance Directive, please fax a copy to [phone] or email to for it to be added to your chart. If you do not have an Advance Directive, you can find the appropriate form and more information at [email or web address]. We recommend that you complete the Advance Directive form found on the website and bring it with you the day of your surgery. It can be witnessed and scanned into your chart that day. Caridad Suarez APRN.FILEMON documented in this encounter [facility] 11-16-2022 History and physical note HISTORY AND PHYSICAL EXAMINATION SERVICE DATE: 11/16/2022 SERVICE TIME: 7:20 PM PRIMARY CARE PHYSICIAN: Bernardino Campos MD This is a virtual visit using [employer] video visit. It required patient-provider interaction for the medical decision making as documented below. REASON FOR VISIT: Suzy Sue is a 27 year old female who is scheduled for Procedure(s): ARTHROSCOPY SHOULDER BICEPS TENODESIS (Right) at the request of Dr. Kayla Schmitz for consultation. My final recommendation will be communicated back to the requesting physician by way of shared medical record or letter. Subjective The patient has the following: ACTIVE PROBLEM LIST Obesity, Class II, Bmi 35-39.9 Painful Menstrual Periods Anxiety With Depression Hyperlipidemia COVID-19 Immunization Status Overdue - Covid-19 Vaccine (2022- season) Overdue since 10/08/2022 03/06/2021 Imm Admin: COVID-19 original vaccine, age 12+ yr, monovalent (PFIZER-BIONTECH - PURPLE TOP) 02/12/2021 Imm Admin: COVID-19 original vaccine, age 12+ yr, monovalent (PFIZER-BIONTECH - PURPLE TOP) 11/18/2020 Postponed until 11/18/2021 by Bernardino Campos MD (Declined at this time) CHIEF COMPLAINT: Pre-op exam HPI: Suzy Sue is a 27 year old seen for PAC due to scheduled above surgery because of bicep tendinitis. 07/23/22, Dr. Nadir Almonte Sue returns follow-up on right shoulder pain. She is here to review the results of her MRI. There is essentially no change in the condition of her shoulder with continued painful feelings of instability with overhead and rotational use of the arm. Examination of her shoulder today demonstrates no change since last visit. She has difficulty with overhead and rotational movements due to deep pain in the shoulder which radiates anteriorly. She has pain but no weakness to rotator cuff testing in elevation and internal rotation. She has painful giving way with Camas's maneuver across the body in pronation. IMAGING: I personally reviewed the MRI of the right shoulder in the office today, and I am in agreement with the radiologist's interpretation with the following modifications: None REVIEW OF SYSTEMS: General: No weight loss, malaise or fevers. Neurological: No history of TIA's, stroke, PAID INTERN tumor, impaired sensorium, hemiplegia, paraplegia or quadraplegia. No neurological symptoms or problems. Respiratory: No history of current cough or dyspnea, or pneumonia in the past 6 weeks. No history of respiratory/pulmonary symptoms or problems. Cardiovascular: Positive for: hyperlipidemia Negative for: anticoagulation therapy, arrhythmia, atrial fibrillation, CAD, chest pain, CHF, congenital heart defect, DVT/PE, hypertension, recent VT, murmur/valvular heart disease, PVD, open heart surgery and valve surgery. GI: No history of GI symptoms or problems. No history of esophageal varices, recent ascites, or ETOH greater than 2 drinks per day. : No history of dysuria, frequency or incontinence, stones or chronic kidney disease. No difficulty urinating, nocturia > 1 time per night or hematuria. Endocrine: No history of diabetes. Has not taken steroids within the past 30 days. No history of endocrinological symptoms or problems. Hematology: No history of bleeding or clotting disorder. Patient is not taking anti-coagulation or platelet medications. No history of hematological symptoms or problems. Oncology: No history of CA metastasis, chemo within 30 days, or radiotherapy within 90 days. No history of oncological symptoms or problems. Psych: Positive for: anxiety and depression. Musculoskeletal: See HPI. Skin: Negative for lesions, rash and itching. PAST MEDICAL HISTORY Diagnosis Date Anxiety with depression Constipation Hyperlipidemia Obesity (BMI 35.0-39.9 without comorbidity) Osteochondroma s/p excision 2010 PAST SURGICAL HISTORY Procedure Laterality Date PAST SURGICAL HISTORY OF 2010 osteochondroma L femur removal PAST SURGICAL HISTORY OF 2004 thyroglossal duct cyst removal FAMILY HISTORY Problem Relation Age of Onset Hypertension Mother Hypertension Father Autism Brother Hypertension Brother Stroke Maternal Grandmother Cancer Paternal Grandmother renal Social History Tobacco Use Smoking status: Never Smokeless tobacco: Never Vaping Use Vaping Use: Never used Substance Use Topics Alcohol use: Yes Alcohol/week: 3.0 standard drinks of alcohol Types: 3 Cans of Beer (12oz) per week Drug use: Never Prior to Admission medications as of 11/16/221913 Medication Sig Last Dose Taking docusate sodium (COLACE) 100 mg capsule Take 1 capsule by mouth twice daily as needed for Constipation. PNV no.95/ferrous fum/folic ac ( ORAL) Take by mouth. sertraline (ZOLOFT) 100 mg tablet Take 1 tablet by mouth once daily. Taking Yes No medication comments found. ALLERGIES Allergen Reactions Latex Anaphylaxis Ibuprofen Unknown Prozac [Fluoxetine] Other: See Comments Dizziness Objective PHYSICAL EXAM: (if completed, exam performed via video enabled technology) General: alert and oriented (x3) and healthy appearance. Skin: normal color, no rash or lesions. HEENT: EOM intact and pupils equal round. Cardiovascular: Self palpated radial pulse regular. Respiratory: Non-labored breathing. Abdomen: soft. Pertinent negatives noted - not tender. Extremities: no deformity, no edema or tenderness, no joint swelling or clubbing. Neurological: normal cognition and motor skills. Gait normal. No weakness or sensory deficit. PAIN ASSESSMENT: VITALS: Pulse 71[smart watch[ Ht 5' 3.5 (1.61m) Wt 215 lb (97.5kg) BMI 37.48 kg/(m^2). Diagnostic tests reviewed for today's visit: Lab Value Units Date High Low HB No results within date range. HCT No results within date range. WBC No results within date range. PLT No results within date range. NA No results within date range. K No results within date range. GLUC No results within date range. BUN No results within date range. CREAT No results within date range. PTSEC No results within date range. INR No results within date range. APTT No results within date range. ALT No results within date range. AST No results within date range. TBILI No results within date range. TSH No results within date range. Lab Value Units Date High Low HCGQT No results within date range. UHCG No results within date range. HCG, BODY* No results within date range. Lab Value Units Date High Low ABORHD No results within date range. ABSCREEN No results within date range. No results found for: HBA1C No results found for this or any previous visit (from the past 8760 hour(s)). No results found for this or any previous visit (from the past 10776 hour(s)). Assessment Patient has the following medical conditions which may affect regine-operative course: Hyperlipidemia Assessment: diet controlled Anxiety with depression Assessment: stable on rx per pt Berrios Activity Status Index: METS: Climb a flight of stairs or walk up a hill (5.50 METs) DASI Score: 5.5 Patient denies any chest pain or undue shortness of breath with the above physical activity. Clinical Frailty Scale: 1. Very fit STOP-Bang Score: Denies snoring loudly Denies feeling tired, fatigued, or sleepy during the daytime Has not been observed to stop breathing or choking/gasping during sleep Denies having high blood pressure BMI less than or equal to 35 kg/m^2 Patient 50 years old or younger Does not have a large neck Non-male patient STOP-Bang Score: 0 [id number] Score: Age: <65 Sex: female CHF history: No Hypertension history: No Stroke/TIA/thromboembolism history: No Vascular disease history: No Diabetes history: No [id number] Score: 1 ANESTHESIA FINDINGS: Intubation History: No history of difficult intubation Significant Anesthesia Considerations: none Airway History: No history of difficult airway I - PHYSICAL EVALUATION AIRWAY Patient intubated: No. Tracheostomy tube not present Mallampati: I. TM distance: >3 FB. Neck ROM: full ROM without neurological symptoms. Mouth opening: adequate. Short neck: no. Thick neck: yes Heredia present: no Lip Bite Test: II Microretrognathia/Micronagthia/R ecessed Chin: No DENTAL Dental findings: teeth intact. Additional comments: Upper/lower perm retainer. II - ANESTHESIA PLAN Anesthetic Plan: other Anesthetic plan additional comments: *PACC/TCI - anesthesia choice. Beta Deepti Monitoring Plan Post Procedure Analgesic Plan Informed Consent Anesthetic risks, benefits, alternatives, personnel and consent discussed: yes. Patient / Responsible Green Party agrees to proceed: yes Patient / Surrogate agrees to blood products: blood products not planned Discussed the possibility of lip / dental damage: yes Prepared for Surgery: optimally prepared for surgery, pending [see comment]. CONSULTS: Patient does not require consults for optimization at this time Planned Anesthetic: other anesthesia choice The Following Tests/Procedures Have Been Initiated: No orders of the defined types were placed in this encounter. Instructions Given to Patient: Instructions located in the after visit summary. Patient given verbal and written preop instructions and voices comprehension and compliance. SIGNATURE: Caridad Suarez APRN.CNP PATIENT NAME: Suzy Sue DATE: November 16, 2022 TIME: 7:11 PM PAGER/CONTACT #: documented in this encounter [facility] 10-25-2022 Miscellaneous Notes Called patient and scheduled her pt 1 week post op. Patient is scheduled for surgery 11-29-2022. Please reach out and assist with scheduling post-op physical therapy. She should be seen approximately 1 week post-op. Thank you. Jaimie Wren documented in this encounter [facility] 07-27-2022 Miscellaneous Notes Patient has been identified by name and date of : Yes Requested Prescriptions Pending Prescriptions Disp Refills sertraline (ZOLOFT) 100 mg tablet 90 tablet 1 Sig: Take 1 tablet by mouth once daily. RX INSTRUCTIONS: Patient aware RX will be sent to pharmacy. No need to notify patient. Patient last office visit: 09/09/21 Patient next office visit: none scheduled Damaris North MA documented in this encounter [facility] 07-23-2022 Note HNO ID: [id number] Author: Kayla Schmitz MD Service: ? Author Type: Physician Type: Progress Notes Filed: 07/23/2022 1:41 PM Note Text: PAIN EVALUATION 07/23/2022 0953 Pain Level: 5 Pain Location: Shoulder-Right Description: Aching;Dull Frequency: Continuous Intervention/Comfort measure: Imagery Encounter Diagnosis ICD-10-CM 1. Bicipital tendinitis of right shoulder M75.21 Suzy Sue returns follow-up on right shoulder pain. She is here to review the results of her MRI. There is essentially no change in the condition of her shoulder with continued painful feelings of instability with overhead and rotational use of the arm. Examination of her shoulder today demonstrates no change since last visit. She has difficulty with overhead and rotational movements due to deep pain in the shoulder which radiates anteriorly. She has pain but no weakness to rotator cuff testing in elevation and internal rotation. She has painful giving way with Camas's maneuver across the body in pronation. IMAGING: I personally reviewed the MRI of the right shoulder in the office today, and I am in agreement with the radiologist's interpretation with the following modifications: None PLAN: Suzy Sue presents today with persistent pain in the anterior shoulder consistent with bicipital tendinitis which has been unresponsive to conservative treatment. After thorough review of history, examination findings, and imaging, we discussed surgical intervention today which would be arthroscopic biceps tenodesis. I described the procedure in detail as well as the expected healing time of 3-6 months and physical therapy regimen following surgery, likely for much of this time. Informed consent was discussed in detail and signed in the office today. Significant risks of surgery including those of general anesthesia, and those from surgery including infection, nerve injury, bleeding, procedure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 provided in selection of appropriate interventions. Correct performance of therapeutic exercises was facilitated with verbal and visual cuing. Manual Therapy: Soft Tissue Mobilization: with lacrosse ball to right upper trap scapular, subacromial and biceps tendon region , push to tolerance x10 min. Skilled Intervention: Manual skills to improve joint mobility, ROM, and decrease pain. Utilized anatomy knowledge of the therapist, and assessment of patient's response to intervention. Billing Therapeutic Exercise Treatment Minutes: 25 Manual TherapyTreatment Minutes: 10 Total Treatment Time Minutes (timed/untimed): 35 Jaimie Silverio PT documented in this encounter [facility] 05-19-2022 Note HNO ID: [id number] Author: Jaimie Silverio PT Service: ? Author Type: Physical Therapist Type: Progress Notes Filed: 05/19/2022 3:10 PM Note Text: Episode Visit Count: 4 Therapist That Will Accept/Oversee The Plan Of Care: Jaimie Silverio PT Start of Care Date: 05/03/22 Onset Date: 02/08/22 (2017) Patient Identified by Name and Date of : Yes REHABILITATION AND SPORTS THERAPY PHYSICAL THERAPY TREATMENT NOTE ASSESSMENT: Suzy Sue tolerated the session with no issues. She demonstrated improvements in ability to perform increased reps and increased exs. . The patient will continue to benefit from ongoing skilled physical therapy to progress toward set goals. PLAN FOR NEXT VISIT: increase reps to 15. still consider numbers on wall SUBJECTIVE: Patient Reason for Visit: Pt notes that she did ok after last session Pain: Pain Pain Level: 7 Pain Location: Shoulder - Right Description: Aching Frequency: Continuous Post Treatment Pain Post Treatment Pain Level: No Change Post Treatment Pain Location: Shoulder - Right OBJECTIVE MEASURES WITH LEVEL OF FUNCTION: flexion ROM still with limitation and pain TREATMENT: Therapeutic Exercise: 1: supine wand assisted [id number] 2: supine wand assisted right shoulder ER 2x10 3: corner pectoralis stretch 15 sec hold x3 4: shoulder bobbi for elevation 1x10 5: pink rep band shoulder extension 1x12 6: pink rep band shoulder flexion 0-20 1x15 7: pink rep IR 2x12 8: sidelying ER to neutral 1# 2x12 9: 4# ball circles on door CW and CCW 2x10 10: posterior shoulder rolls B 1# 2x10 11: 1# scaption to shoulder level 2x10 right Skilled Intervention: Skilled judgment was provided in selection of appropriate interventions. Correct performance of therapeutic exercises was facilitated with verbal and visual cuing. Manual Therapy: Soft Tissue Mobilization: with lacrosse ball to right upper trap scapular, subacromial and biceps tendon region , push to tolerance x10 min. Skilled Intervention: Manual skills to improve joint mobility, ROM, and decrease pain. Utilized anatomy knowledge of the therapist, and assessment of patient's response to intervention. Billing Therapeutic Exercise Treatment Minutes: 25 Manual TherapyTreatment Minutes: 10 Total Treatment Time Minutes (timed/untimed): 35 Jaimie Silverio, PT [facility] 05-19-2022 History of Presen t illness Narrative Episode Visit Count: 4 Therapist That Will Accept/Oversee The Plan Of Care: Jaimie Silverio PT Start of Care Date: 05/03/22 Onset Date: 02/08/22 (2017) Patient Identified by Name and Date of : Yes REHABILITATION AND SPORTS THERAPY PHYSICAL THERAPY TREATMENT NOTE ASSESSMENT: Suzy Sue tolerated the session with no issues. She demonstrated improvements in ability to perform increased reps and increased exs. . The patient will continue to benefit from ongoing skilled physical therapy to progress toward set goals. PLAN FOR NEXT VISIT: increase reps to 15. still consider numbers on wall SUBJECTIVE: Patient Reason for Visit: Pt notes that she did ok after last session Pain: Pain Pain Level: 7 Pain Location: Shoulder - Right Description: Aching Frequency: Continuous Post Treatment Pain Post Treatment Pain Level: No Change Post Treatment Pain Location: Shoulder - Right OBJECTIVE MEASURES WITH LEVEL OF FUNCTION: flexion ROM still with limitation and pain TREATMENT: Therapeutic Exercise: 1: supine wand assisted [id number] 2: supine wand assisted right shoulder ER 2x10 3: corner pectoralis stretch 15 sec hold x3 4: shoulder bobbi for elevation 1x10 5: pink rep band shoulder extension 1x12 6: pink rep band shoulder flexion 0-20 1x15 7: pink rep IR 2x12 8: sidelying ER to neutral 1# 2x12 9: 4# ball circles on door CW and CCW 2x10 10: posterior shoulder rolls B 1# 2x10 11: 1# scaption to shoulder level 2x10 right Skilled Intervention: Skilled judgment was provided in selection of appropriate interventions. Correct performance of therapeutic exercises was facilitated with verbal and visual cuing. Manual Therapy: Soft Tissue Mobilization: with lacrosse ball to right upper trap scapular, subacromial and biceps tendon region , push to tolerance x10 min. Skilled Intervention: Manual skills to improve joint mobility, ROM, and decrease pain. Utilized anatomy knowledge of the therapist, and assessment of patient's response to intervention. Billing Therapeutic Exercise Treatment Minutes: 25 Manual TherapyTreatment Minutes: 10 Total Treatment Time Minutes (timed/untimed): 35 Jaimie Silverio PT documented in this encounter [facility] 05-17-2022 Note HNO ID: [id number] Author: Jaimie Silverio PT Service: ? Author Type: Physical Therapist Type: Progress Notes Filed: 05/17/2022 3:48 PM Note Text: Episode Visit Count: 3 Therapist That Will Accept/Oversee The Plan Of Care: Jaimie Silverio PT Start of Care Date: 05/03/22 Onset Date: 02/08/22 (2017) Patient Identified by Name and Date of : Yes REHABILITATION AND SPORTS THERAPY PHYSICAL THERAPY TREATMENT NOTE ASSESSMENT: Suzy Sue tolerated the session with no issues. She demonstrated improvements in tolerance to exs . The patient will continue to benefit from ongoing skilled physical therapy to progress toward set goals. PLAN FOR NEXT VISIT: numbers on wall SUBJECTIVE: Patient Reason for Visit: Pt notes that she is doing ok with exs. Pain: Pain Pain Level: 5 Pain Location: Shoulder - Right Description: Sharp Frequency: Continuous Post Treatment Pain Post Treatment Pain Level: No Change Post Treatment Pain Location: Shoulder - Right OBJECTIVE MEASURES WITH LEVEL OF FUNCTION: good form with all exs. TREATMENT: Therapeutic Exercise: 1: supine wand assisted elevation 1x12 2: standing wand assisted right shoulder ER 2x10 3: corner pectoralis stretch 15 sec hold x3 4: shoulder bobbi for elevation 1x10 5: pink rep band shoulder extension 1x12 6: pink rep band shoulder flexion 0-20 1x12 7: pink rep IR 1x12 8: sidelying ER to neutral 1# 1x12 9: 4# ball circles on door CW and CCW 2x10 Skilled Intervention: Patient was educated in proper exercise technique and purpose for exercises. Reviewed and educated patient on additions/changes for home exercise program . Skilled judgment was provided in selection of appropriate interventions. Correct performance of therapeutic exercises was facilitated with verbal and visual cuing. Patient education as noted. Manual Therapy: Soft Tissue Mobilization: with lacrosse ball to right upper trap scapular, subacromial and biceps tendon region , push to tolerance x10 min. Skilled Intervention: Manual skills to improve joint mobility, ROM, and decrease pain. Utilized anatomy knowledge of the therapist, and assessment of patient's response to intervention. Home Exercise Program Assigned: 1: add corner pect stretch and increase band exs to 12 Billing Therapeutic Exercise Treatment Minutes: 19 Manual TherapyTreatment Minutes: 10 Total Treatment Time Minutes (timed/untimed): 29 Jaimie Silverio, PT [facility] 05-17-2022 History of Presen t illness Narrative Episode Visit Count: 3 Therapist That Will Accept/Oversee The Plan Of Care: Jaimie Silverio PT Start of Care Date: 05/03/22 Onset Date: 02/08/22 (2017) Patient Identified by Name and Date of : Yes REHABILITATION AND SPORTS THERAPY PHYSICAL THERAPY TREATMENT NOTE ASSESSMENT: Suzy Sue tolerated the session with no issues. She demonstrated improvements in tolerance to exs . The patient will continue to benefit from ongoing skilled physical therapy to progress toward set goals. PLAN FOR NEXT VISIT: numbers on wall SUBJECTIVE: Patient Reason for Visit: Pt notes that she is doing ok with exs. Pain: Pain Pain Level: 5 Pain Location: Shoulder - Right Description: Sharp Frequency: Continuous Post Treatment Pain Post Treatment Pain Level: No Change Post Treatment Pain Location: Shoulder - Right OBJECTIVE MEASURES WITH LEVEL OF FUNCTION: good form with all exs. TREATMENT: Therapeutic Exercise: 1: supine wand assisted elevation 1x12 2: standing wand assisted right shoulder ER 2x10 3: corner pectoralis stretch 15 sec hold x3 4: shoulder bobbi for elevation 1x10 5: pink rep band shoulder extension 1x12 6: pink rep band shoulder flexion 0-20 1x12 7: pink rep IR 1x12 8: sidelying ER to neutral 1# 1x12 9: 4# ball circles on door CW and CCW 2x10 Skilled Intervention: Patient was educated in proper exercise technique and purpose for exercises. Reviewed and educated patient on additions/changes for home exercise program . Skilled judgment was provided in selection of appropriate interventions. Correct performance of therapeutic exercises was facilitated with verbal and visual cuing. Patient education as noted. Manual Therapy: Soft Tissue Mobilization: with lacrosse ball to right upper trap scapular, subacromial and biceps tendon region , push to tolerance x10 min. Skilled Intervention: Manual skills to improve joint mobility, ROM, and decrease pain. Utilized anatomy knowledge of the therapist, and assessment of patient's response to intervention. Home Exercise Program Assigned: 1: add corner pect stretch and increase band exs to 12 Billing Therapeutic Exercise Treatment Minutes: 19 Manual TherapyTreatment Minutes: 10 Total Treatment Time Minutes (timed/untimed): 29 Jaimie Silverio PT documented in this encounter [facility] 05-11-2022 Note HNO ID: [id number] Author: Jaimie Silverio PT Service: ? Author Type: Physical Therapist Type: Progress Notes Filed: 05/11/2022 10:37 AM Note Text: Episode Visit Count: 2 Therapist That Will Accept/Oversee The Plan Of Care: Jaimie Silverio PT Start of Care Date: 05/03/22 Onset Date: 02/08/22 (2017) Patient Identified by Name and Date of : Yes REHABILITATION AND SPORTS THERAPY PHYSICAL THERAPY TREATMENT NOTE ASSESSMENT: Suzy Sue tolerated the session with increased symptoms. She demonstrated difficulty with pain with scapular retraction, and increased reps of ER and IR but overall able to decrease pain with STM. . The patient will continue to benefit from ongoing skilled physical therapy to progress toward set goals. PLAN FOR NEXT VISIT: Will advance reps of exs. Assess reponse to STM SUBJECTIVE: Patient Reason for Visit: Pt notes that she could only do 7 reps on bobbi d/t pain and had to limit ROM . Pain: Pain Pain Level: 5 Pain Location: Shoulder - Right Description: Sharp Frequency: Continuous Post Treatment Pain Post Treatment Pain Level: 5 Post Treatment Pain Location: Shoulder - Right Post Treatment Symptoms: had tincreased to 7/10 but decreased back to 5/10 after STM OBJECTIVE MEASURES WITH LEVEL OF FUNCTION: no tenderness ,just pain in area of biceps tendon TREATMENT: Therapeutic Exercise: 1: cervical retraction 1x10 2: cervical left LF 1x10 3: active scapular retraction 1x10 4: shoulder bobbi for elevation 1x10 5: pink rep band shoulder extension 1x10 6: pink rep band shoulder flexion 0-20 1x10 7: pink rep IR 1x10 8: sidelying ER to neutral 1x10 9: trial of prone scapular retraction but painful so discontinued Skilled Intervention: Patient was educated in proper exercise technique and purpose for exercises. Reviewed and educated patient on additions/changes for home exercise program . Skilled judgment was provided in selection of appropriate interventions. Provided written instruction for home exercise program to facilitate proper performance and compliance. Correct performance of therapeutic exercises was facilitated with verbal and visual cuing. Patient education as noted. Manual Therapy: Soft Tissue Mobilization: with lacrosse ball to right upper trap scapular, subacromial and biceps tendon region , push to tolerance x8 min. Skilled Intervention: Manual skills to improve joint mobility, ROM, and decrease pain. Utilized anatomy knowledge of the therapist, and assessment of patient's response to intervention. Home Exercise Program Assigned: 1: add rep band extension, fleixon, IR and sidelying ER Billing Therapeutic Exercise Treatment Minutes: 25 Manual TherapyTreatment Minutes: 8 Total Treatment Time Minutes (timed/untimed): 33 Jaimie Silverio, PT [facility] 05-11-2022 History of Presen t illness Narrative Episode Visit Count: 2 Therapist That Will Accept/Oversee The Plan Of Care: Jaimie Silverio PT Start of Care Date: 05/03/22 Onset Date: 02/08/22 (2017) Patient Identified by Name and Date of : Yes REHABILITATION AND SPORTS THERAPY PHYSICAL THERAPY TREATMENT NOTE ASSESSMENT: Suzy Sue tolerated the session with increased symptoms. She demonstrated difficulty with pain with scapular retraction, and increased reps of ER and IR but overall able to decrease pain with STM. . The patient will continue to benefit from ongoing skilled physical therapy to progress toward set goals. PLAN FOR NEXT VISIT: Will advance reps of exs. Assess reponse to STM SUBJECTIVE: Patient Reason for Visit: Pt notes that she could only do 7 reps on bobbi d/t pain and had to limit ROM . Pain: Pain Pain Level: 5 Pain Location: Shoulder - Right Description: Sharp Frequency: Continuous Post Treatment Pain Post Treatment Pain Level: 5 Post Treatment Pain Location: Shoulder - Right Post Treatment Symptoms: had tincreased to 7/10 but decreased back to 5/10 after STM OBJECTIVE MEASURES WITH LEVEL OF FUNCTION: no tenderness ,just pain in area of biceps tendon TREATMENT: Therapeutic Exercise: 1: cervical retraction 1x10 2: cervical left LF 1x10 3: active scapular retraction 1x10 4: shoulder bobbi for elevation 1x10 5: pink rep band shoulder extension 1x10 6: pink rep band shoulder flexion 0-20 1x10 7: pink rep IR 1x10 8: sidelying ER to neutral 1x10 9: trial of prone scapular retraction but painful so discontinued Skilled Intervention: Patient was educated in proper exercise technique and purpose for exercises. Reviewed and educated patient on additions/changes for home exercise program . Skilled judgment was provided in selection of appropriate interventions. Provided written instruction for home exercise program to facilitate proper performance and compliance. Correct performance of therapeutic exercises was facilitated with verbal and visual cuing. Patient education as noted. Manual Therapy: Soft Tissue Mobilization: with lacrosse ball to right upper trap scapular, subacromial and biceps tendon region , push to tolerance x8 min. Skilled Intervention: Manual skills to improve joint mobility, ROM, and decrease pain. Utilized anatomy knowledge of the therapist, and assessment of patient's response to intervention. Home Exercise Program Assigned: 1: add rep band extension, fleixon, IR and sidelying ER Billing Therapeutic Exercise Treatment Minutes: 25 Manual TherapyTreatment Minutes: 8 Total Treatment Time Minutes (timed/untimed): 33 Jaimie Silverio PT documented in this encounter [facility] 05-03-2022 Note HNO ID: [id number] Author: Jaimie Silverio PT Service: ? Author Type: Physical Therapist Type: Progress Notes Filed: 05/03/2022 7:09 PM Note Text: Episode Visit Count: 1 Therapist That Will Accept/Oversee The Plan Of Care: Jaimie Silverio PT Start of Care Date: 05/03/22 Onset Date: 02/08/22 (2017) Patient Identified by Name and Date of : Yes REHABILITATION AND SPORTS THERAPY PHYSICAL THERAPY EVALUATION PLAN OF CARE: Assessment: Suzy Sue presents with chief complaint of anterior shoulder pain that interferes with dressing, use hand with arm at shoulder level, reaching overhead, reaching behind back, physical activities, lifting . She presents with impairments in ADL's, independence in exercise, joint mobility, overall function, range of motion, strength, symptom management, and tissue tenderness. PROMIS? (Patient-Reported Outcomes Measurement Information System) scores were reviewed and physical function domain and self efficacy domain identified as a rehabilitation concern. Prognosis for therapy is Fair due to: chronic nature of impairments, poor past response to therapy intervention . She will benefit from skilled therapy services to meet the goals established for this plan of care as noted below. Goals for Episode of Care: created on 05/03/22 through 06/07/22 [place] in home exercise program. Patient will decrease pain to 1-2/10 with functional activities to allow patient to improve performance of ADL's. Patient will increase active ROM of right shoulder to 155 elevation and 1 deficits of rotations to allow pt to to improve performance of ADLs. Perform reaching lifting and ADL's with decreased report of symptoms/pain in 4 weeks. Improve postural awareness. Patient Goals: decrease pain Planned Interventions, Frequency, and Duration: Current Frequency: 2x/week Duration: 4 weeks Total Number of Visits Planned: 8 Planned Treatment Interventions: Therapeutic exercise (99549), Neuromuscular re-education (06112), Manual therapy (75192), Patient/Family/Caregiver Education PLAN FOR NEXT VISIT: Will add sidelying ER and rep band or prone scapular retraction . Patient demonstrates good understanding of plan of care and treatment. The above goals and plan of care were discussed and agreed upon by patient/family. SUBJECTIVE: Suzy Sue is a 26 year old female seen today for pain in front of shoulder. sometimes radiates into fingers at times if it is bad enough. 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 Information: Prescription present Previous Treatment: Physical Therapy , Chiropractor (ultrasound, KT tape, TENS, exercise, dry needling) Pain: Pain Pain Level: 6 Pain Location: Shoulder - Right Description: Sharp Frequency: Continuous Post Treatment Pain Post Treatment Pain Level: No Change Post Treatment Pain Location: Shoulder - Right Post Treatment Pain Description: Aching, Sharp PROMIS Scales Higher is Better 05/01/2022 Phys Func - Score 36 (moderate dysfunction) Phys Func - Percentile 8 % Self-Eff Symptom - Score 39 (Low) Self-Eff Symptom - Percentile 14 % T-scores: mean of general population = 50. 5 points is clinically meaningfully difference Percentiles provide an indication of how the patient's score ranks in relation to the general population. Higher percentile rankings indicate better function/quality of life. 50th percentile is the average of the general population and indicates half of respondents had a worse score. OBJECTIVE MEASURES WITH LEVEL OF FUNCTION: Posture / Alignment Posture: Rounded shoulders Cervical Spine ROM Cervical ROM : Limitation AROM Cervical Retraction AROM: Minimal limitation (no change of pain) Cervical Flexion AROM: Normal, Increased pain Cervical Extension AROM: Normal Cervical Side-Bend Right AROM: Normal, Increased pain Cervical Side-Bend Left AROM: Normal Cervical Rotation Right AROM: Normal, Increased pain Cervical Rotation Left AROM: Normal UE AROM R Shoulder Flex: 145 Degrees R Shoulder ABduction: 130 Degrees R Shoulder Internal Rotation (Functional): 2 less left R Shoulder External Rotation (Functional): 2 1/2 less left L Shoulder Flex: 160 Degrees L Shoulder ABduction: 167 Degrees L Shoulder Internal Rotation (Functional): T12 L Shoulder External Rotation (Functional): T3 UE PROM L Shoulder Flex: 160 Degrees UE and Cervical Strength Strength Tested: Shoulder Functional Strength R Shoulder Internal Rotation: 5/5 R Shoulder External Rotation: 5/5 Functional Strength Functional Strength: li (more content not included)... [facility] 05-03-2022 History of Presen t illness Narrative Episode Visit Count: 1 Therapist That Will Accept/Oversee The Plan Of Care: Jaimie Silverio PT Start of Care Date: 05/03/22 Onset Date: 02/08/22 (2017) Patient Identified by Name and Date of : Yes REHABILITATION AND SPORTS THERAPY PHYSICAL THERAPY EVALUATION PLAN OF CARE: Assessment: Suzy Sue presents with chief complaint of anterior shoulder pain that interferes with dressing, use hand with arm at shoulder level, reaching overhead, reaching behind back, physical activities, lifting . She presents with impairments in ADL's, independence in exercise, joint mobility, overall function, range of motion, strength, symptom management, and tissue tenderness. PROMIS (Patient-Reported Outcomes Measurement Information System) scores were reviewed and physical function domain and self efficacy domain identified as a rehabilitation concern. Prognosis for therapy is Fair due to: chronic nature of impairments, poor past response to therapy intervention . She will benefit from skilled therapy services to meet the goals established for this plan of care as noted below. Goals for Episode of Care: created on 05/03/22 through 06/07/22 [place] in home exercise program. Patient will decrease pain to 1-2/10 with functional activities to allow patient to improve performance of ADL's. Patient will increase active ROM of right shoulder to 155 elevation and 1 deficits of rotations to allow pt to to improve performance of ADLs. Perform reaching lifting and ADL's with decreased report of symptoms/pain in 4 weeks. Improve postural awareness. Patient Goals: decrease pain Planned Interventions, Frequency, and Duration: Current Frequency: 2x/week Duration: 4 weeks Total Number of Visits Planned: 8 Planned Treatment Interventions: Therapeutic exercise (79653), Neuromuscular re-education (44211), Manual therapy (89185), Patient/Family/Caregiver Education PLAN FOR NEXT VISIT: Will add sidelying ER and rep band or prone scapular retraction . Patient demonstrates good understanding of plan of care and treatment. The above goals and plan of care were discussed and agreed upon by patient/family. SUBJECTIVE: Suzy Sue is a 26 year old female seen today for pain in front of shoulder. sometimes radiates into fingers at times if it is bad enough. 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 Information: Prescription present Previous Treatment: Physical Therapy , Chiropractor (ultrasound, KT tape, TENS, exercise, dry needling) Pain: Pain Pain Level: 6 Pain Location: Shoulder - Right Description: Sharp Frequency: Continuous Post Treatment Pain Post Treatment Pain Level: No Change Post Treatment Pain Location: Shoulder - Right Post Treatment Pain Description: Aching, Sharp PROMIS Scales Higher is Better 05/01/2022 Phys Func - Score 36 (moderate dysfunction) Phys Func - Percentile 8 % Self-Eff Symptom - Score 39 (Low) Self-Eff Symptom - Percentile 14 % T-scores: mean of general population = 50. 5 points is clinically meaningfully difference Percentiles provide an indication of how the patient's score ranks in relation to the general population. Higher percentile rankings indicate better function/quality of life. 50th percentile is the average of the general population and indicates half of respondents had a worse score. OBJECTIVE MEASURES WITH LEVEL OF FUNCTION: Posture / Alignment Posture: Rounded shoulders Cervical Spine ROM Cervical ROM : Limitation AROM Cervical Retraction AROM: Minimal limitation (no change of pain) Cervical Flexion AROM: Normal, Increased pain Cervical Extension AROM: Normal Cervical Side-Bend Right AROM: Normal, Increased pain Cervical Side-Bend Left AROM: Normal Cervical Rotation Right AROM: Normal, Increased pain Cervical Rotation Left AROM: Normal UE AROM R Shoulder Flex: 145 Degrees R Shoulder ABduction: 130 Degrees R Shoulder Internal Rotation (Functional): 2 less left R Shoulder External Rotation (Functional): 2 1/2 less left L Shoulder Flex: 160 Degrees L Shoulder ABduction: 167 Degrees L Shoulder Internal Rotation (Functional): T12 L Shoulder External Rotation (Functional): T3 UE PROM L Shoulder Flex: 160 Degrees UE and Cervical Strength Strength Tested: Shoulder Functional Strength R Shoulder Internal Rotation: 5/5 R Shoulder External Rotation: 5/5 Functional Strength Functional Strength: limited use for lifting and reaching d/t pain Special Tests - Shoulder Shoulder Special Tests: Mark Anthony, Camas, Waqas'harika Hopson: Right Positive Camas: Right Positive Waqas's: Right Positive Education: Education Learning Preferences: Demonstration, Explanation, Performance, Printed Materials Barriers: None Learning/educational needs: Home exercise program, Plan of Care Education Provided: Yes, see treatment interventions for education provided Education Provided To: Patient Education Mode/Type: Demonstration, Explanation/Discussion, Literature/Printed Materials, Performance Response to Education/Teach Back: States/Identifies, Return Demonstration TREATMENT: PT Treatment Interventions: Therapeutic Exercise Evaluation Therapeutic Exercise: 1: cervical retraction 1x5 2: cervical left LF 1x5 3: active scapular retraction 1x10 4: shoulder bobbi for elevation 1x10 Skilled Intervention: Patient was educated in proper exercise technique and purpose for exercises. Skilled judgment was provided in selection of appropriate interventions. Provided written instruction for home exercise program to facilitate proper performance and compliance. Correct performance of therapeutic exercises was facilitated with verbal and visual cuing. Educated patient on rationale for performing exercises in regards to ROM and function . Patient education as noted. Home Exercise Program Assigned: 1: as outlined above Billing * Evaluation Low Complexity: 1 Unit Therapeutic Exercise Treatment Minutes: 25 Total Treatment Time Minutes (timed/untimed): 45 Jaimie Silverio PT documented in this encounter [facility] documented as of this encounter (statuses as of 06/03/2022) [facility]03-27-2023 History of Past illness Narrative* Problem Noted Date Resolved Date Bicipital tendinitis of right shoulder 06/03/2022 documented as of this encounter (statuses as of 06/14/2022) [facility]03-27-2023 History of Past illness Narrative* Problem Noted Date Resolved Date Bicipital tendinitis of right shoulder 06/03/2022 documented as of this encounter (statuses as of 07/27/2022) [facility]03-27-2023 History of Past illness Narrative* Problem Noted Date Diagnosed Date Resolved Date Bicipital tendinitis of right shoulder 05/03/2022 06/03/2022 documented as of this encounter (statuses as of 10/15/2022) [facility]03-27-2023 History of Past illness Narrative* Problem Noted Date Diagnosed Date Resolved Date Bicipital tendinitis of right shoulder 05/03/2022 06/03/2022 documented as of this encounter (statuses as of 10/15/2022) [facility]-27-2023 History of Past illness Narrative* Problem Noted Date Diagnosed Date Resolved Date Bicipital tendinitis of right shoulder 05/03/2022 06/03/2022 documented as of this encounter (statuses as of 10/25/2022) [facility]-27-2023 History of Past illness Narrative* Problem Noted Date Diagnosed Date Resolved Date Bicipital tendinitis of right shoulder 05/03/2022 06/03/2022 documented as of this encounter (statuses as of 11/17/2022) [place] [address]-27-2023 History of Past illness Narrative* Problem Noted Date Diagnosed Date Resolved Date Bicipital tendinitis of right shoulder 05/03/2022 06/03/2022 documented as of this encounter (statuses as of 11/24/2022) [facility]03-17-2023 NoteHNO ID: [id number] Author: Kayla Schmitz MD Service: ? Author Type: Physician Type: Progress Notes Filed: 04/23/2022 2:17 PM Note Text: ORTHOPAEDIC SHOULDER AND ELBOW SERVICE HISTORY AND PHYSICAL EXAM REFERRING PROVIDER: Kayla Julien [address] [facility] [address] CHIEF COMPLAINT: Right shoulder pain PAIN EVALUATION 04/23/2022 1354 Pain Level: 7 Pain Location: Shoulder-Right Description: Sharp;Tightness;Radiating Frequency: Continuous Intervention/Comfort measure: Medication;Cold guidove Suzy Sue is a 26 year old woman who presents today for evaluation of her right shoulder. She has had ongoing problems since about 2018 or 2019 without any major injury she can recall. She has pain in the anterior shoulder which is worse with rotation and lifting but is present at rest as well. She has difficulty sleeping as a result of her pain. She has been prescribed physical therapy in 2019 which did not improve her symptoms. She also has been treated medically with no improvement. Treatments and therapies to-date include: Activity modification/changes to daily activities: Yes Medical management (Tylenol, NSAIDs): Yes Physical therapy within the past 6 months for at least 4 weeks: No Corticosteroid Injection: No PAST MEDICAL HISTORY: PAST MEDICAL HISTORY Diagnosis Date Anxiety with depression Constipation Hyperlipidemia Obesity (BMI 35.0-39.9 without comorbidity) Osteochondroma s/p excision 2010 PAST SURGICAL HISTORY: PAST SURGICAL HISTORY Procedure Laterality Date PAST SURGICAL HISTORY OF 2010 osteochondroma L femur removal PAST SURGICAL HISTORY OF 2004 thyroglossal duct cyst removal SOCIAL HISTORY: Social History Tobacco Use Smoking status: Never Smokeless tobacco: Never Vaping Use Vaping Use: Never used Substance Use Topics Alcohol use: Yes Alcohol/week: 3.0 standard drinks Types: 3 Cans of Beer (12oz) per week Drug use: Never ALLERGIES: ALLERGIES Allergen Reactions Latex Anaphylaxis Ibuprofen Unknown Prozac [Fluoxetine] Other: See Comments Dizziness MEDICATIONS: Current Outpatient Medications on File Prior to Visit Medication Sig sertraline (ZOLOFT) 100 mg tablet Take 1 tablet by mouth once daily. PNV no.95/ferrous fum/folic ac ( ORAL) Take by mouth. docusate sodium (COLACE) 100 mg capsule Take 1 capsule by mouth twice daily as needed for Constipation. No current facility-administered medications on file prior to visit. PHYSICAL EXAMINATION: There were no vitals taken for this visit. EXAM: Shoulder Musculoskeletal Exam Inspection Right Ecchymosis: none Peripheral edema: none Atrophy: none Symmetry: symmetric Masses: none Skin tenting: none Prior incision: none Palpation Right Crepitus: mild Increased warmth: none Tenderness: present Anterior shoulder: moderate Posterior shoulder: moderate Clavicle: none AC joint: none Sternoclavicular joint: none Rotator cuff: mild Greater tuberosity: mild Trapezius: mild Medial scapula: none Superior pole of scapula: none Inferior pole of scapula: none Bicipital groove: mild Proximal biceps: mild Range of Motion Right Active ROM: abnormal and pain. Passive ROM: abnormal and pain. Active forward elevation: 140. Passive forward elevation: 150. Shoulder active abduction: 90. Passive abduction: 90. Active external rotation at side: 60. Passive external rotation at side: 60. Active external rotation in abduction: 60. Passive external rotation in abduction: 60. Active internal rotation in abduction: 40. Passive internal rotation in abduction: 40. Internal rotation: T12. Strength Right External rotation: 5/5. Internal rotation: 5/5. Abduction: 5/5. Neurovascular Right Right shoulder nerve sensation is normal. Axillary nerve sensory distribution: normal Scapula Right Position: normal Dyskinesia: none Winging: none Special Tests Right Rotator Cuff Signs Neer's test: negative Chase test: positive Supraspinatus: negative Belly press test: negative Painful arc test: positive Lift-off sign: negative Drop arm test: negative Biceps/amish Signs Camas's test: positive Clicking/popping: positive Speed's test: positive AC Joint Signs Active horizontal adduction pain: negative Single finger test: negative General Constitutional: appears stated age Labored breathing: no Psychiatric: normal mood and affect and no acute distress Neurological: alert and oriented x3 Skin: intact Lymphadenopathy: none IMAGING: I reviewed radiographs of her right shoulder today showing normal appearance of her glenohumeral joint without degenerative change or fracture. MEDICAL DECISION MAKING: (M75.21) Bicipital tendinitis of right shoulder (primary encounter diagnosis) Comment: This is a 26-year-old woman with longstanding pain in the right shoulder and physical e (more content not included)...[facility] 04-23-2022 History of Present illness Narrative* Kayla Schmitz MD - 04/23/2022 2:13 PM EDT Images from the original note were not included. ORTHOPAEDIC SHOULDER & ELBOW SERVICE HISTORY & PHYSICAL EXAM REFERRING PROVIDER: Kayla Julien [address] [facility] [address] CHIEF COMPLAINT: Right shoulder pain PAIN EVALUATION 04/23/2022 1354 Pain Level: 7 Pain Location: Shoulder-Right Description: Sharp;Tightness;Radiating Frequency: Continuous Intervention/Comfort measure: Medication;Cold guidove Suzy Sue is a 26 year old woman who presents today for evaluation of her right shoulder. She has had ongoing problems since about 2018 or 2019 without any major injury she can recall. She has pain in the anterior shoulder which is worse with rotation and lifting but is present at rest as well. She has difficulty sleeping as a result of her pain. She has been prescribed physical therapy in 2019 which did not improve her symptoms. She also has been treated medically with no improvement. Treatments and therapies to-date include: Activity modification/changes to daily activities: Yes Medical management (Tylenol, NSAIDs): Yes Physical therapy within the past 6 months for at least 4 weeks: No Corticosteroid Injection: No PAST MEDICAL HISTORY: PAST MEDICAL HISTORY Diagnosis Date Anxiety with depression Constipation Hyperlipidemia Obesity (BMI 35.0-39.9 without comorbidity) Osteochondroma s/p excision 2010 PAST SURGICAL HISTORY: PAST SURGICAL HISTORY Procedure Laterality Date PAST SURGICAL HISTORY OF 2010 osteochondroma L femur removal PAST SURGICAL HISTORY OF 2004 thyroglossal duct cyst removal SOCIAL HISTORY: Social History Tobacco Use Smoking status: Never Smokeless tobacco: Never Vaping Use Vaping Use: Never used Substance Use Topics Alcohol use: Yes Alcohol/week: 3.0 standard drinks Types: 3 Cans of Beer (12oz) per week Drug use: Never ALLERGIES: ALLERGIES Allergen Reactions Latex Anaphylaxis Ibuprofen Unknown Prozac [Fluoxetine] Other: See Comments Dizziness MEDICATIONS: Current Outpatient Medications on File Prior to Visit Medication Sig sertraline (ZOLOFT) 100 mg tablet Take 1 tablet by mouth once daily. PNV no.95/ferrous fum/folic ac ( ORAL) Take by mouth. docusate sodium (COLACE) 100 mg capsule Take 1 capsule by mouth twice daily as needed for Constipation. No current facility-administered medications on file prior to visit. PHYSICAL EXAMINATION: There were no vitals taken for this visit. EXAM: Shoulder Musculoskeletal Exam Inspection Right Ecchymosis: none Peripheral edema: none Atrophy: none Symmetry: symmetric Masses: none Skin tenting: none Prior incision: none Palpation Right Crepitus: mild Increased warmth: none Tenderness: present Anterior shoulder: moderate Posterior shoulder: moderate Clavicle: none AC joint: none Sternoclavicular joint: none Rotator cuff: mild Greater tuberosity: mild Trapezius: mild Medial scapula: none Superior pole of scapula: none Inferior pole of scapula: none Bicipital groove: mild Proximal biceps: mild Range of Motion Right Active ROM: abnormal and pain. Passive ROM: abnormal and pain. Active forward elevation: 140. Passive forward elevation: 150. Shoulder active abduction: 90. Passive abduction: 90. Active external rotation at side: 60. Passive external rotation at side: 60. Active external rotation in abduction: 60. Passive external rotation in abduction: 60. Active internal rotation in abduction: 40. Passive internal rotation in abduction: 40. Internal rotation: T12. Strength Right External rotation: 5/5. Internal rotation: 5/5. Abduction: 5/5. Neurovascular Right Right shoulder nerve sensation is normal. Axillary nerve sensory distribution: normal Scapula Right Position: normal Dyskinesia: none Winging: none Special Tests Right Rotator Cuff Signs Neer's test: negative Chase test: positive Supraspinatus: negative Belly press test: negative Painful arc test: positive Lift-off sign: negative Drop arm test: negative Biceps/amish Signs Camas's test: positive Clicking/popping: positive Speed's test: positive AC Joint Signs Active horizontal adduction pain: negative Single finger test: negative General Constitutional: appears stated age Labored breathing: no Psychiatric: normal mood and affect and no acute distress Neurological: alert and oriented x3 Skin: intact Lymphadenopathy: none IMAGING: I reviewed radiographs of her right shoulder today showing normal appearance of her glenohumeral joint without degenerative change or fracture. MEDICAL DECISION MAKING: (M75.21) Bicipital tendinitis of right shoulder (primary encounter diagnosis) Comment: This is a 26-year-old woman with longstanding pain in the right shoulder and physical examfindings consistent with bicipital tendinitis or instability of the long head of biceps tendon. Shehas had this problem treated unsuccessfully with physical therapy in the past but I recommended trying another round of therapy to see if this provides her with any benefit. If she fails to improve she may require MRI for complete evaluation the shoulder and possible surgical intervention based on findings. Plan: CONSULT TO PHYSICAL THERAPY Medical decision making for today's visit was conducted with review of the following data sources: History, exam, imaging REFERRING PHYSICIAN: The patient was referred to me for consultation by the following physician. This consultation note will be sent to the following physician by either mail or electronic medical record. Kayla Julien [address] [facility] [id number] Kayla Schmitz MD Shoulder & Elbow Surgeon Department of Orthopaedic [facility] NoteHNO ID: [id number] Author: Kayla Julien APRN.PAST DUE ACCOUNTS CLERK Service: ? Author Type: Nurse Practitioner Type: Progress Notes Filed: 04/06/2022 3:45 PM Note Text: Subjective HPI HPI Suzy Sue is a 26 year old female who presents today for CC of right shoulder pain. This started on, off for long times. Has tried otc medication without relief. Symptoms are worsened by rom of shoulder. Risk factors denies injury. Notes some numbness in right hand/intermittent years. .Patient presents with: Pain (Shoulder Pain): right x 4 days, recurring PAST MEDICAL HISTORY Diagnosis Date Anxiety with depression Constipation Hyperlipidemia Obesity (BMI 35.0-39.9 without comorbidity) Osteochondroma s/p excision 2010 PAST SURGICAL HISTORY Procedure Laterality Date PAST SURGICAL HISTORY OF 2010 osteochondroma L femur removal PAST SURGICAL HISTORY OF 2004 thyroglossal duct cyst removal ALLERGIES Latex, Ibuprofen, and Prozac [Fluoxetine] MEDICATIONS sertraline (ZOLOFT) 100 mg tablet Take 1 tablet by mouth once daily. PNV no.95/ferrous fum/folic ac ( ORAL) Take by mouth. docusate sodium (COLACE) 100 mg capsule Take 1 capsule by mouth twice daily as needed for Constipation. FAMILY HISTORY Problem Relation Age of Onset Hypertension Mother Hypertension Father Autism Brother Hypertension Brother Stroke Maternal Grandmother Cancer Paternal Grandmother renal Social History Tobacco Use Smoking status: Never Smokeless tobacco: Never Vaping Use Vaping Use: Never used Substance Use Topics Alcohol use: Yes Alcohol/week: 3.0 standard drinks Types: 3 Cans of Beer (12oz) per week Drug use: Never ROS Objective Blood pressure 120/74, pulse 80, temperature 37.3 ?C (99.1 ?F), resp. rate 16, weight 102.1 kg (225 lb), SpO2 99 %. Physical Exam Constitutional: General: She is not in acute distress. Appearance: She is not toxic-appearing or diaphoretic. HENT: Head: Normocephalic and atraumatic. Pulmonary: Effort: Pulmonary effort is normal. No accessory muscle usage or respiratory distress. Musculoskeletal: Right shoulder: Tenderness present. No swelling, deformity, effusion, laceration, bony tenderness or crepitus. Normal range of motion. Normal strength. Normal pulse. Arms: Neurological: Mental Status: She is alert and oriented to person, place, and time. ASSESSMENT/PLAN: 1. Chronic right shoulder pain - ICD9: 719.41, 338.29, ICD10: M25.511, G89.29 -no bony abnormality noted on xray -Rest, Ice, Compression, Elevation discussed -follow up with primary care if symptoms persist/worsen in 10-14 days -refer to ortho since chronic. - XR SHOULDER GENERAL 3V OR MORE AP/TRUE AP/OTHER RIGHT IMPRESSION: Normal right shoulder. Dictated by : MD Kayla FELDER APRN.[facility]02-28-2023 NoteHNO ID: [id number] Author: RT Florentino(R) Service: Radiology Author Type: Technologist Type: Progress Notes Filed: 04/06/2022 3:33 PM Note Text: Radiology Service Progress Note PATIENT NAME: Suzy uSe DATE OF SERVICE: April 06, 2022 TIME: 3:14 PM PATIENT IDENTITY VERIFICATION COMPLETED USING TWO (2) IDENTIFIERS: Name and Date of confirmed by patient verbally. FALL SCREENING: Has the patient had 2 falls in the last year or 1 fall with injury or currently using an Ambulatory Assistive Device (Walker, Cane, Wheelchair, Crutches, etc.)? No PATIENT GENDER DATA: Female. status: : No status: NO. PATIENT RELEVANT IMPLANT DATA REVIEWED: Yes RADIOLOGY DEPARTMENT: General X-ray: Exam(s) Completed: Upper Extremity X-Ray(s): Shoulder, AP / TRUE AP / AXILLARY right PERIPHERAL IV DATA: Not applicable SIGNED BY: RT Florentino(R) April 06, 2022 3:14 [facility]11-15-2022 Miscellaneous Notes* Telephone Encounter - Padmaja Haynes LPN - 12/22/2021 10:23 AM EST Patient phones requesting refills as follows: Requested Prescriptions Pending Prescriptions Disp Refills sertraline (ZOLOFT) 100 mg tablet 30 tablet 2 Sig: Take 1 tablet by mouth once daily. MINOR 09/09/21 No upcoming appointment scheduled Please review and advise. Padmaja Haynes LPN [facility] Miscellaneous Notes* Telephone Encounter - Toshia Mistry LPN - 09/18/2021 1:41 PM EDT Patient phones requesting refills as follows: Requested Prescriptions Pending Prescriptions Disp Refills sertraline (ZOLOFT) 100 mg tablet 30 tablet 2 Sig: Take 1 tablet by mouth once daily. LOIV-09/09/21 Labs-09/09/21 NOV-none med filled 06/09/21 ends 09/09/21 Please review and advise. Toshia Mistry LPN documented in this [facility]08-03-2022 History of Present illness Narrative* Марина Collado APRN.FILEMON - 09/09/2021 8:33 AM EDT 09/09/2021 Patient presents with: F/U 3 Month SUBJECTIVE: This is a 26 year old that is here today for Above Complaints. Taking Zoloft as prescribed without side effects. Feels improved. More motivated and doing more things instead of laying down. Not attending counseling. Denies SI, HI, insomnia. LAURA: 4 PHQ9: 5 PAST MEDICAL HISTORY Diagnosis Date Anxiety with depression Constipation Hyperlipidemia Obesity (BMI 35.0-39.9 without comorbidity) Osteochondroma s/p excision 2010 ALLERGIES Latex, Ibuprofen, and Prozac [Fluoxetine] MEDICATIONS Current Outpatient Medications Medication Sig cholecalciferol, Vitamin D3, (VITAMIN D3) 1,250 mcg (50,000 unit) cap capsule Take 1 capsule by mouth one time a week. sertraline (ZOLOFT) 100 mg tablet Take 1 tablet by mouth once daily. docusate sodium (COLACE) 100 mg capsule Take 1 capsule by mouth twice daily as needed for Constipation. No current facility-administered medications for this visit. Medications and allergies reviewed by this provider. SOCIAL HISTORY Social History Tobacco Use Smoking status: Never Smoker Smokeless tobacco: Never Used Vaping Use Vaping Use: Never used Substance Use Topics Alcohol use: Yes Alcohol/week: 3.0 standard drinks Types: 3 Cans of Beer (12oz) per week Drug use: Never REVIEW OF SYSTEMS All other reviewed and negative other than HPI. OBJECTIVE: BP 124/68 Pulse 68 Resp 16 Wt 99.1 kg (218 lb 6.4 oz) SpO2 98% BMI 38.22 kg/m . Vital signs reviewed by this provider. APPEARANCE Well appearing, alert, in no acute distress, well-hydrated, well nourished. PSYCH: Posture and motor behavior: normal posture and motor behavior Dress, grooming, personal hygiene: normal dress and grooming Facial expression: smiling and good eye contact Speech: normal speech Mood: cheerful Coherency and relevance of thought: normal thought processes Memory: normal memory COVID-19 VACCINE(3 - Booster for Pfizer series) due on 08/04/2021 INFLUENZA(1) due on 10/08/2021 PAP TESTING due on 09/17/2022 DTAP,TDAP,TD(8 - Td or Tdap) due on 11/18/2030 HPV VACCINE Completed HEPATITIS C SCREENING Completed HIV SCREENING Completed ASSESSMENT/PLAN: 1. Anxiety with depression - ICD9: 300.4, ICD10: F41.8 - improved on increased dose - recommend counseling as needed - continue current dose and follow-up as needed Марина Collado APRN.CNP Prescription instructions reviewed with patient as applicable. Patient advised if symptoms do not improve or if symptoms worsen sooner, to contact their primary care physician. Potential red flag symptoms discussed with the patient. Reviewed appropriate action plan to take if red flag symptoms occur. Patient agreeable to treatment plan. I spent a total of 20 minutes on the date of the service which included preparing to see the patient, [id number] patient care, completing clinical documentation, obtaining and/or reviewing separately obtained history, performing a medically appropriate examination and counseling and educating the patient/family/caregiver. [facility] History of Present illness Narrative* Li Nguyen APRN.CNP - 08/17/2021 11:34 AM EDT Alisa presents for removal of IUD due to desire for . UNIVERSAL PROTOCOL / SAFETY CHECKLIST Procedure to be Performed: Mirena removal Sign In: A Moment of CARE was completed. Personnel directly involved with the procedure wore the appropriate PPE (Personal Protective Equipment). Patient/Surrogate Stated/Verified: PATIENT VERIFIED(optional for EMERGENT procedures): Patient name, Date of , Relevant allergies and The intended procedure Time Out Communication: Intended patient and procedure match the source documents. Consent documented and matches the intended procedure. Sign Out: SIGN OUT (optional for EMERGENT procedures): No specimen collected. All instruments, equipment, possible retained foreign bodies accounted for. Post-procedure follow-up management communicated and Plan of Care Visit completed when applicable. Martha Gonzalez RN PROCEDURE: Speculum placed in vagina, IUD string visualized and grasped with ring forceps. ASSESSMENT/PLAN: IUD removed without difficulty, intact, and patient tolerated procedure well. Contraception plans: none Reviewed pre-conception guidelines including folic acid supplementation, optimal timing of intercourse, avoidance of smoking, alcohol, exposure to environmental chemicals and need for evaluation if not within 12 months. Li Nguyen APRN.CNP documented in [facility]22 Miscellaneous Notes* Telephone Encounter - Li Nguyen APRN.CNP - 08/07/2021 12:13 PM EDT Order filed. Li Nguyen APRN.CNP * Telephone Encounter - Mary Maher LPN - 08/07/2021 11:02 AM EDT Pt has appt on 08/17/21 for IUD removal. Please see pended order below and sign. Will then attach tovisit. Mary Maher LPN documented in [facility]06-27[facility]22 Miscellaneous Notes* Telephone Encounter - Lyn Rodrigues RN - 08/03/2021 9:48 AM EDT Called and spoke with patient. Does not wish to have her IUD replaced. Please file order. Will needattached to her appointment on 08/17. Thank you. Lyn Rodrigues RN * Telephone Encounter - Serina Weber Pss - 08/03/2021 9:41 AM EDT Patient calling asking for order to be placed for IUD removal. Please advise and call patient. documented in [facility]05-[facility]22 Miscellaneous Notes* Telephone Encounter - Lanny Cooper Ma - 06/12/2021 8:54 AM EDT Patient was notified Lanny Cooper Ma * Telephone Encounter - Марина Collado APRN.CNP - 06/12/2021 7:49 AM EDT Please call patient and let her know her vitamin d level is very low. She needs to take vitamin D one tablet a week for 12 weeks then one week after last dose she needs to have her level rechecked. It is important she have her level rechecked after the treatment so we know if the supplement helped. Thanks, Марина Collado APRN.CNP documented in [facility]05-03-[facility]22 History of Present illness Narrative* Bernardino Campos MD - 06/09/2021 3:19 PM EDT Chief Complaint Patient presents with: Follow Up: 3 month HPI Suzy Sue is a 25 year old female who presents here today for 3 month anxiety/depression follow up. At last OV, we stopped her Prozac and switched to Zoloft due to size effect of dizziness. Since switching rx, her dizziness has resolved and has not had any other side effects. States that her anxiety and depression symptoms have improved somewhat as well and is getting less panic attacks. Still complains of lack of motivation and decreased energy. Mood and excessive worrying has improved significantly. Denies SI/HI. Would like to increase dosage of her Zoloft. Not seeing counseling now and is not interested in referral. Not on vitamin D supplement after finishing her cholecalciferol for vitamin D deficiency. Due for repeat labs. Past medical history, appointments, medications, allergies reviewed. Previous Medical History PAST MEDICAL HISTORY Diagnosis Date Anxiety with depression Constipation Hyperlipidemia Obesity (BMI 35.0-39.9 without comorbidity) Osteochondroma s/p excision 2010 . Previous Surgical History PAST SURGICAL HISTORY Procedure Laterality Date PAST SURGICAL HISTORY OF 2010 osteochondroma L femur removal PAST SURGICAL HISTORY OF 2004 thyroglossal duct cyst removal Family History FAMILY HISTORY Problem Relation Age of Onset Hypertension Mother Hypertension Father Autism Brother Hypertension Brother Stroke Maternal Grandmother Cancer Paternal Grandmother renal Patient Allergies ALLERGIES Allergen Reactions Latex Anaphylaxis Ibuprofen Unknown Prozac [Fluoxetine] Other: See Comments Dizziness Current Medications Current Outpatient Medications on File Prior to Visit Medication Sig sertraline (ZOLOFT) 50 mg tablet Take 1 tablet by mouth once daily. levonorgestrel (MIRENA) 20 mcg/24 hours (5 yrs) 52 mg IUD 1 Each by INTRAUTERINE route one time only. docusate sodium (COLACE) 100 mg capsule Take 1 capsule by mouth twice daily as needed for Constipation. ergocalciferol 50,000 unit capsule (VITAMIN D2, DRISDOL) Take one tablet a week for 12 weeks (Patient not taking: Reported on 03/10/2021 ) No current facility-administered medications on file prior to visit. Social History Social History Tobacco Use Smoking status: Never Smoker Smokeless tobacco: Never Used Vaping Use Vaping Use: Never used Substance Use Topics Alcohol use: Yes Alcohol/week: 3.0 standard drinks Types: 3 Cans of Beer (12oz) per week Drug use: Never Review of Symptoms REVIEW OF SYSTEMS See HPI EXAM: BP 124/72 Pulse 89 Resp 16 Wt 100.6 kg (221 lb 12.8 oz) SpO2 97% BMI 38.81 kg/m General Appearance: Well appearing, alert, in no acute distress, well-hydrated, well nourished.. PSYCH: Posture and motor behavior: normal posture and motor behavior Dress, grooming, personal hygiene: normal dress and grooming Facial expression: smiling Speech: normal speech Mood: cheerful Coherency and relevance of thought: normal thought processes Memory: normal memory Health Maintenance List MENINGOCOCCAL B: Consider based on risk(1 of 2 - Risk Bexsero 2-dose series) due on 11/18/2021 COVID-19 VACCINE(3 - Booster for Pfizer series) due on 08/04/2021 DEPRESSION SCREENING due on 11/18/2021 PAP TESTING due on 09/17/2022 DTAP,TDAP,TD(8 - Td or Tdap) due on 11/18/2030 HPV VACCINE Completed INFLUENZA Completed HEPATITIS C SCREENING Completed HIV SCREENING Completed MENINGOCOCCAL CONJUGATE Aged Out ASSESSMENT/PLAN: 1. Anxiety with depression - ICD9: 300.4, ICD10: F41.8 (primary diagnosis) Improved, but still uncontrolled. Increase Zoloft. Recheck in 3 months or PRN. Red flags for re-assessment reviewed with patient in detail. - SERTRALINE 100 MG TABLET 2. Vitamin D deficiency - ICD9: 268.9, ICD10: E55.9 Recheck level. Discussed 2,000 units of Vitamin D daily OTC. Bernardino Campos MD documented in [facility]08-07-2015 History of Past illness Narrative* Problem Noted Date Diagnosed Date Resolved Date Painful menstrual periods 09/13/2014 documented as of this encounter (statuses as of 01/19/2023) [facility] note* Diagnosis Anxiety with depression- Primary Vitamin D deficiency Unspecified vitamin D deficiency documented in this encounter [facility] note* Diagnosis Vitamin D deficiency- Primary Unspecified vitamin D deficiency documented in this encounter [facility] note* Diagnosis Encounter for IUD removal- Primary Encounter for removal of intrauterine contraceptive device documented in this encounter [facility] note* Diagnosis Encounter for IUD removal- Primary Encounter for removal of intrauterine contraceptive device documented in this encounter [facility] note* Diagnosis Encounter for IUD removal- Primary Encounter for removal of intrauterine contraceptive device documented in this encounter [facility] note* Diagnosis Anxiety with depression- Primary documented in this encounter [facility] note* Diagnosis Anxiety with depression documented in this encounter [facility] note* Diagnosis Bicipital tendinitis of right shoulder- Primary Bicipital tenosynovitis documented in this encounter [facility] note* Diagnosis Bicipital tendinitis of right shoulder Bicipital tenosynovitis documented in this encounter [facility] note* Diagnosis Bicipital tendinitis of right shoulder- Primary Bicipital tenosynovitis documented in this encounter [facility] note* Diagnosis Bicipital tendinitis of right shoulder- Primary Bicipital tenosynovitis documented in this encounter [facility] note* Diagnosis Bicipital tendinitis of right shoulder- Primary Bicipital tenosynovitis documented in this encounter [facility] note* Diagnosis Bicipital tendinitis of right shoulder- Primary Bicipital tenosynovitis documented in this encounter [facility] note* Diagnosis Bicipital tendinitis of right shoulder- Primary Bicipital tenosynovitis documented in this encounter [facility] note* Diagnosis Bicipital tendinitis of right shoulder- Primary Bicipital tenosynovitis documented in this encounter [facility] note* Diagnosis Bicipital tendinitis of right shoulder- Primary Bicipital tenosynovitis documented in this encounter [facility] note* Diagnosis Bicipital tendinitis of right shoulder- Primary Bicipital tenosynovitis documented in this encounter [facility] note* Diagnosis Anxiety with depression documented in this encounter [facility] note* Diagnosis Bicipital tendinitis of right shoulder- Primary Bicipital tenosynovitis documented in this encounter [facility] note* Diagnosis Bicipital tendinitis of right shoulder- Primary Bicipital tenosynovitis documented in this encounter [facility] note* Diagnosis Pre-operative examination- Primary Preoperative examination, unspecified Mixed hyperlipidemia Anxiety with depression Bicipital tendinitis of right shoulder Bicipital tenosynovitis documented in this encounter [facility] note* Diagnosis Anxiety with depression Bicipital tendinitis of right shoulder Bicipital tenosynovitis documented in this encounter [facility] note* Diagnosis Bicipital tendinitis of right shoulder- Primary Bicipital tenosynovitis documented in this encounter [facility] note* Diagnosis Bicipital tendinitis of right shoulder- Primary Bicipital tenosynovitis [facility] Diagnosis Bicipital tendinitis of right shoulder Bicipital tenosynovitis documented in this encounter [facility] note* Diagnosis Bicipital tendinitis of right shoulder- Primary Bicipital tenosynovitis documented in this [facility]* Diagnosis Bicipital tendinitis of right shoulder- Primary Bicipital tenosynovitis documented in this encounter [facility] note* Diagnosis Anxiety with depression- Primary Obesity, Class II, BMI 35-39.9 Obesity, unspecified Supervision of normal first , antepartum Bicipital tendinitis of right shoulder Bicipital tenosynovitis documented in this encounter [facility] note* Diagnosis Bicipital tendinitis of right shoulder- Primary Bicipital tenosynovitis documented in this [facility]* Diagnosis Bicipital tendinitis of right shoulder- Primary Bicipital tenosynovitis documented in this encounter [facility] note* Diagnosis Encounter for screening for malignant neoplasm of cervix- Primary Screening for malignant neoplasm of the cervix Supervision of normal first , antepartum documented in this encounter [facility] for referral (narrative)* Outpatient Procedure (Routine) - Pending Review Specialty Diagnoses / Procedures Referred By Vijaya bar Referred To Contact [facility] Diagnoses Encounter for IUD removal Procedures REMOVE INTRAUTERINE DEVICE REMOVE INTRAUTERINE DEVICE Li Nguyen APRN.CNP [address] [place] [address] [address] [place] [address] Referral ID Status Reason Start Date Expiration Date Visits Requested Visits Authorized [id number] Pending Review Auto-Generat ed Referral 08/17/2021 08/17/2022 1 1 [facility] for referral (narrative)* - Pending Review Specialty Diagnoses / Procedures Referred By Vijaya bar Referred To Contact Physical Therapy Diagnoses Bicipital tendinitis of right shoulder Procedures CONSULT TO PHYSICAL THERAPY Kayla Schmitz MD [address] [address] Referral ID Status Reason Start Date Expiration Date V isits Requested Visits Authorized [id number] Pending Review 04/23/2022 07/22/2022 1 1 [facility] for referral (narrative)* Diagnostic Procedure Only (Routine) - Pending Review Specialty Diagnoses / Procedures Referred By Vijaya bar Referred To Contact [facility] Diagnoses Supervision of normal first , antepartum Procedures NUCHAL TRANSLUCENCY WHI US NUCHAL TRANSLUCENCY 1ST GESTATION Bruno Guerin MD [address] [place] [address] [facility] [address] [place] [address] Referral ID Status Reason Start Date Expiration Date Visits Requested Visits Authorized [id number] Pending Review Auto-Generat ed Referral 3 01/18/2024 1 1 [facility] Reason for Referral Specialty Diagnoses / Procedures Referred By Vijaya t Referred To Contact [facility] Diagnoses Encounter for IUD removal Procedures REMOVE INTRAUTERINE DEVICE REMOVE INTRAUTERINE DEVICE iL Nguyen, KADE.PAST DUE ACCOUNTS CLERK [address] [place] [place] [address] [address] Referral ID Status Reason Start Date Expiration Date V isits Requested Visits Authorized [id number] Authorized 02/07/2021 02/06/2022 2 2 Specialty Diagnoses / Procedures Referred By Vijaya t Referred To Contact [facility] Diagnoses Bicipital tendinitis of right shoulder Procedures PT REHAB FOLLOW UP ORDER PT REHAB FOLLOW UP ORDER THERAPEUTIC EXERCISES RE, EA 15 MIN. Pt [facility] [address] [place] [address] [facility] [address] [address] Referral ID Status Reason Start Date Expiration Date Visits Requested Visits Authorized [id number] Pending Review PCP Requested Referral Auto-Generate d Referral 05/03/2022 08/01/2022 1 1 Specialty Diagnoses / Procedures Referred By Vijaya bar Referred To Contact [facility] Diagnoses Bicipital tendinitis of right shoulder Procedures MRI SHOULDER WO IVCON RIGHT MRI ANY JT UPPER EXTREMITY W/O CONTRAST Kayla Walsh MD [address] [place] [address] [facility] Referral ID Status Reason Start Date Expiration Date Visits Requested Visits Authorized [id number] Pending Review Auto-Generat ed Referral 06/11/2022 07/11/2023 1 1 Specialty Diagnoses / Procedures Referred By Vijaya t Referred To Contact [facility] Diagnoses Bicipital tendinitis of right shoulder Procedures CONSULT TO PHYSICAL THERAPY PHYSICAL THERAPY EVALUATION HIGH COMPLEX 45 MINS Montserrat Meier PA-C [address] [place] [address] [facility] [place] [address] [place] [address] Referral ID Status Reason Start Date Expiration Date Visits Requested Visits Authorized [id number] Pending Review Auto-Generat ed Referral 10/15/2022 10/15/2023 1 1 Specialty Diagnoses / Procedures Referred By Contisabell bar Referred To Contact [facility] Diagnoses Bicipital tendinitis of right shoulder Procedures MRI SHOULDER WO IVCON RIGHT MRI ANY JT UPPER EXTREMITY W/O CONTRAST Kayla Walsh MD [address] [place] [address] [place] [address] Referral ID Status Reason Start Date Expiration Date V isits Requested Visits Authorized [id number] Closed Auto-Generate d Referral 07/07/2022 08/06/2022 1 1 Summary Purpose Family History No Family History Records FoundNo Family History Records Found Advance Directives No Advanced Directives Records FoundNo Advanced Directives Records Found Health Concerns Problem Noted Date Diagnosed Date [facility] Education - COMMON 01/18/2023 Education - [place] 01/18/2023 Additional Source Comments Source Comments (unrecognize d section and content) In the event this informatio n is protected by the Federal Confidentiality of Alcohol and Drug Abuse Patient Records regulations: The Federal rules restrict any use of the information to criminally investigate or prosecute any alcohol or drug abuse patient.[facility] the event this information is protected by the Federal Confidentiality of Alcohol and Drug Abuse Patient Records regulations: The Federal rules restrict any use of the information to criminally investigate or prosecute any alcohol or drug abuse patient.[facility] HospitalIn the event this information is protected by the Federal Confidentiality of Alcohol and Drug Abuse Patient Records regulations: The Federal rules restrict any use of the information to criminally investigate or prosecute any alcohol or drug abuse patient.[facility] HospitalIn the event this information is protected by the Federal Confidentiality of Alcohol and Drug Abuse Patient Records regulations: The Federal rules restrict any use of the information to criminally investigate or prosecute any alcohol or drug abuse patient.[facility] HospitalIn the event this information is protected by the Federal Confidentiality of Alcohol and Drug Abuse Patient Records regulations: The Federal rules restrict any use of the information to criminally investigate or prosecute any alcohol or drug abuse patient.[facility] HospitalIn the event this information is protected by the Federal Confidentiality of Alcohol and Drug Abuse Patient Records regulations: The Federal rules restrict any use of the information to criminally investigate or prosecute any alcohol or drug abuse patient.[facility] HospitalIn the event this information is protected by the Federal Confidentiality of Alcohol and Drug Abuse Patient Records regulations: The Federal rules restrict any use of the information to criminally investigate or prosecute any alcohol or drug abuse patient.[facility] HospitalIn the event this information is protected by the Federal Confidentiality of Alcohol and Drug Abuse Patient Records regulations: The Federal rules restrict any use of the information to criminally investigate or prosecute any alcohol or drug abuse patient.[facility] HospitalIn the event this information is protected by the Federal Confidentiality of Alcohol and Drug Abuse Patient Records regulations: The Federal rules restrict any use of the information to criminally investigate or prosecute any alcohol or drug abuse patient.[facility] HospitalIn the event this information is protected by the Federal Confidentiality of Alcohol and Drug Abuse Patient Records regulations: The Federal rules restrict any use of the information to criminally investigate or prosecute any alcohol or drug abuse patient.[facility] HospitalIn the event this information is protected by the Federal Confidentiality of Alcohol and Drug Abuse Patient Records regulations: The Federal rules restrict any use of the information to criminally investigate or prosecute any alcohol or drug abuse patient.[facility] HospitalIn the event this information is protected by the Federal Confidentiality of Alcohol and Drug Abuse Patient Records regulations: The Federal rules restrict any use of the information to criminally investigate or prosecute any alcohol or drug abuse patient.[facility] HospitalIn the event this information is protected by the Federal Confidentiality of Alcohol and Drug Abuse Patient Records regulations: The Federal rules restrict any use of the information to criminally investigate or prosecute any alcohol or drug abuse patient.[facility] HospitalIn the event this information is protected by the Federal Confidentiality of Alcohol and Drug Abuse Patient Records regulations: The Federal rules restrict any use of the information to criminally investigate or prosecute any alcohol or drug abuse patient.[facility] HospitalIn the event this information is protected by the Federal Confidentiality of Alcohol and Drug Abuse Patient Records regulations: The Federal rules restrict any use of the information to criminally investigate or prosecute any alcohol or drug abuse patient.[facility] HospitalIn the event this information is protected by the Federal Confidentiality of Alcohol and Drug Abuse Patient Records regulations: The Federal rules restrict any use of the information to criminally investigate or prosecute any alcohol or drug abuse patient.[facility] HospitalIn the event this information is protected by the Federal Confidentiality of Alcohol and Drug Abuse Patient Records regulations: The Federal rules restrict any use of the information to criminally investigate or prosecute any alcohol or drug abuse patient.[facility] HospitalIn the event this information is protected by the Federal Confidentiality of Alcohol and Drug Abuse Patient Records regulations: The Federal rules restrict any use of the information to criminally investigate or prosecute any alcohol or drug abuse patient.[facility] HospitalIn the event this information is protected by the Federal Confidentiality of Alcohol and Drug Abuse Patient Records regulations: The Federal rules restrict any use of the information to criminally investigate or prosecute any alcohol or drug abuse patient.[facility] HospitalIn the event this information is protected by the Federal Confidentiality of Alcohol and Drug Abuse Patient Records regulations: The Federal rules restrict any use of the information to criminally investigate or prosecute any alcohol or drug abuse patient.[facility] HospitalIn the event this information is protected by the Federal Confidentiality of Alcohol and Drug Abuse Patient Records regulations: The Federal rules restrict any use of the information to criminally investigate or prosecute any alcohol or drug abuse patient.[facility] HospitalIn the event this information is protected by the Federal Confidentiality of Alcohol and Drug Abuse Patient Records regulations: The Federal rules restrict any use of the information to criminally investigate or prosecute any alcohol or drug abuse patient.[facility] HospitalIn the event this information is protected by the Federal Confidentiality of Alcohol and Drug Abuse Patient Records regulations: The Federal rules restrict any use of the information to criminally investigate or prosecute any alcohol or drug abuse patient.[facility] HospitalIn the event this information is protected by the Federal Confidentiality of Alcohol and Drug Abuse Patient Records regulations: The Federal rules restrict any use of the information to criminally investigate or prosecute any alcohol or drug abuse patient.[facility] HospitalIn the event this information is protected by the Federal Confidentiality of Alcohol and Drug Abuse Patient Records regulations: The Federal rules restrict any use of the information to criminally investigate or prosecute any alcohol or drug abuse patient.[facility] HospitalIn the event this information is protected by the Federal Confidentiality of Alcohol and Drug Abuse Patient Records regulations: The Federal rules restrict any use of the information to criminally investigate or prosecute any alcohol or drug abuse patient.[facility] HospitalIn the event this information is protected by the Federal Confidentiality of Alcohol and Drug Abuse Patient Records regulations: The Federal rules restrict any use of the information to criminally investigate or prosecute any alcohol or drug abuse patient.[facility] HospitalIn the event this information is protected by the Federal Confidentiality of Alcohol and Drug Abuse Patient Records regulations: The Federal rules restrict any use of the information to criminally investigate or prosecute any alcohol or drug abuse patient.[facility] HospitalIn the event this information is protected by the Federal Confidentiality of Alcohol and Drug Abuse Patient Records regulations: The Federal rules restrict any use of the information to criminally investigate or prosecute any alcohol or drug abuse patient.[facility] HospitalIn the event this information is protected by the Federal Confidentiality of Alcohol and Drug Abuse Patient Records regulations: The Federal rules restrict any use of the information to criminally investigate or prosecute any alcohol or drug abuse patient.[facility] HospitalIn the event this information is protected by the Federal Confidentiality of Alcohol and Drug Abuse Patient Records regulations: The Federal rules restrict any use of the information to criminally investigate or prosecute any alcohol or drug abuse patient.[facility] HospitalIn the event this information is protected by the Federal Confidentiality of Alcohol and Drug Abuse Patient Records regulations: The Federal rules restrict any use of the information to criminally investigate or prosecute any alcohol or drug abuse patient.[facility] HospitalIn the event this information is protected by the Federal Confidentiality of Alcohol and Drug Abuse Patient Records regulations: The Federal rules restrict any use of the information to criminally investigate or prosecute any alcohol or drug abuse patient.[facility] HospitalIn the event this information is protected by the Federal Confidentiality of Alcohol and Drug Abuse Patient Records regulations: The Federal rules restrict any use of the information to criminally investigate or prosecute any alcohol or drug abuse patient.[facility] HospitalIn the event this information is protected by the Federal Confidentiality of Alcohol and Drug Abuse Patient Records regulations: The Federal rules restrict any use of the information to criminally investigate or prosecute any alcohol or drug abuse patient.[facility] Reason for Visit (unrecogniz ed section and content) Specialty Diagnoses / Procedures Referred By Vijaya bar Referred To Contact Physical Therapy / [facility] Diagnoses Bicipital tendinitis of right shoulder Procedures CONSULT TO PHYSICAL THERAPY Kayla Schmitz MD [address] [address] [facility] [address] [address] Referral ID Status Reason Start Date Expiration Date V isits Requested Visits Authorized [id number] Authorized 04/26/2022 02/06/2023 20 20 Reason Comments Physical Therapy Reason Comments PT Discharge Reason Comments Follow Up 3 month Reason Comments Results Reason Comments Orders Reason Comments Orders Reason Onset Date Comments Vaginal Problem IUD Removal 08/17/2021 Specialty Diagnoses / Procedures Referred By Contac t Referred To Contact [facility] Diagnoses Encounter for IUD removal Procedures REMOVE INTRAUTERINE DEVICE REMOVE INTRAUTERINE DEVICE Li Nguyen APRN.PAST DUE ACCOUNTS CLERK [address] [place] [address] [address] Referral ID Status Reason Start Date Expiration Date V isits Requested Visits Authorized [id number] Authorized 02/07/2021 02/06/2022 2 2 Reason Comments F/U 3 Month Reason Onset Date Comments Refill Request 09/18/2021 Reason Onset Date Comments Refill Request 12/22/2021 Reason Comments [facility] follow-up Pain Specialty Diagnoses / Procedures Referred By Contac t Referred To Contact Orthopedics Diagnoses Chronic right shoulder pain Procedures CONSULT TO ORTHOPAEDICS OFFICE/OUTPATIENT [facility] MDM 60-74 MINUTES Kayla Julien APRN.PAST DUE ACCOUNTS CLERK [address] [place] [address] Referral ID Status Reason Start Date Expiration Date V isits Requested Visits Authorized [id number] Closed PCP Requested Referral 04/06/2022 04/06/2023 1 1 Reason Comments PT Eval Patient Education Specialty Diagnoses / Procedures Referred By Contac t Referred To Contact Physical Therapy / [facility] Diagnoses Bicipital tendinitis of right shoulder Procedures CONSULT TO PHYSICAL THERAPY Kayla Schmitz MD [address] [address] Reason Comments Established Patient Follow Up Post Op Reason Onset Date Comments Refill Request 07/27/2022 Reason Comments Appointment Post-op physical the rapy Reason Onset Date Comments Refill Request 11/24/2022 Reason Comments PT Eval Specialty Diagnoses / Procedures Referred By Contac t Referred To Contact [facility] Diagnoses Bicipital tendinitis of right shoulder Procedures CONSULT TO PHYSICAL THERAPY PHYSICAL THERAPY EVALUATION HIGH COMPLEX 45 MINS Montserrat Meier PA-C [address] [place] [address] [facility] [address] [address] Referral ID Status Reason Start Date Expiration Date Visits Requested Visits Authorized [id number] Pending Review Auto-Generat ed Referral 10/15/2022 10/15/2023 1 1 Reason Comments Established Patient Follow Up Post Op Specialty Diagnoses / Procedures Referred By Vijaya bar Referred To Contact [facility] IMAGING Diagnoses Bicipital tendinitis of right shoulder Procedures MRI SHOULDER WO IVCON RIGHT MRI ANY JT UPPER EXTREMITY W/O CONTRAST Kayla Walsh MD 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 Relationship Specialty Start Date End Date Bernardino Campos MD [address] [place] [address] PCP - General Family Practice 10/01/19 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 Relationship Specialty Start Date End Date Bernardino Campos MD [address] [place] [address] PCP - General Family Practice 10/01/19 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 Relationship Specialty Start Date End Date Bernardino Campos MD [address] [place] [address] PCP - General Family Practice 10/01/19 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 Relationship Specialty Start Date End Date Bernardino Campos MD [address] [place] [address] PCP - General Family Practice 10/01/19 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 Relationship Specialty Start Date End Date Bernardino Campos MD [address] [place] [address] PCP - General Family Medicine 10/01/19 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 Relationship Specialty Start Date End Date Bernardino Campos MD [address] [place] [address] PCP - General Family Medicine 10/01/19 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 Relationship Specialty Start Date End Date Bernardino Campos MD [address] [place] [address] PCP - General Family Medicine 10/01/19 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 Relationship Specialty Start Date End Date Bernardino Campos MD [facility] [place] [address] PCP - General Family Medicine 10/01/19 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 Relationship Specialty Start Date End Date Bernardino Campos MD [facility] [place] [address] PCP - General Family Medicine 10/01/19 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 Relationship Specialty Start Date End Date Bernardino Campos MD [address] [place] [address] PCP - General Family Medicine 10/01/19 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 Relationship Specialty Start Date End Date Bernardino Campos MD [address] [place] [address] PCP - General Family Medicine 10/01/19 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 Relationship Specialty Start Date End Date Bernardino Campos MD [facility] [place] [address] PCP - General Family Medicine 10/01/19 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 Relationship Specialty Start Date End Date Bernardino Campos MD [address] [place] [address] PCP - General Family Medicine 10/01/19 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 Relationship Specialty Start Date End Date Bernardino Campos MD [address] [place] [address] PCP - General Family Medicine 10/01/19 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 Relationship Specialty Start Date End Date Bernardino Campos MD [address] [place] [address] PCP - General Family Medicine 10/01/19 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 Relationship Specialty Start Date End Date Bernardino Campos MD [address] [place] [address] PCP - General Family Medicine 10/01/19 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 Relationship Specialty Start Date End Date Bernardino Campos MD [address] [place] [address] PCP - General Family Medicine 10/01/19 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 Relationship Specialty Start Date End Date Bernardino Campos MD [address] [place] [address] PCP - General Family Medicine 10/01/19 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 Relationship Specialty Start Date End Date Bernardino Campos MD [address] [place] [address] PCP - General Family Medicine 10/01/19 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 Relationship Specialty Start Date End Date Bernardino Campos MD [address] [place] [address] PCP - General Family Medicine 10/01/19 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 Relationship Specialty Start Date End Date Bernardino Campos MD [address] [place] [address] PCP - General Family Medicine 10/01/19 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 Relationship Specialty Start Date End Date Bernardino Campos MD [address] [place] [address] PCP - General Family Medicine 10/01/19 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 Relationship Specialty Start Date End Date Bernardino Campos MD [address] [place] [address] PCP - General Family Medicine 10/01/19 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 Relationship Specialty Start Date End Date Bernardino Campos MD [address] [place] [address] PCP - General Family Medicine 10/01/19 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 Relationship Specialty Start Date End Date Bernardino Campos MD [address] [place] [address] PCP - General Family Medicine 10/01/19 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 This clinical summary was aggregated from multiple sources. Caution should be exercised in using it in the provision of clinical care. This summary normalizes information from multiple sources, and as a consequence, information in this document may materially change the coding, format and clinical context of patient data. In addition, data may be omitted in some cases. CLINICAL DECISIONS SHOULD BE BASED ON THE PRIMARY CLINICAL RECORDS. [facility]. provides no warranty or guarantee of the accuracy or completeness of information in this document.
[2023-02-13] MEDS: 0.9% Normal Saline (1000mL) 1,000 ML 150 ML IV (05:58)
[2023-02-13 06:10] LABS: Absolute Lymphocyte Count 1.73 X10^3/uL (0.83-4.51); Absolute Neutrophil Count 5.3 X10^3/uL (2.0-7.7); Basophil# 0.04 X10^3/uL; Basophil% 0.5 % (0-1); Eosinophils% 1.3 % (0-5); Hematocrit 38.4 % (37-47); Hemoglobin 12.7 g/dL (12.0-15.0); Lymphocyte # 1.73 X10^3/ul (0.83-4.51); Lymphocyte % 22.5 % (19-41); Mean Corp Hgb Conc 33.1 g/dL (32-36); Mean Corpuscular Hgb 26.3 pg (27.0-32.0); Mean Corpuscular Volume 79.7 fL (81-99); Mean Platelet Vol. 9.5 fl (6.2-12.0); Monocyte# 0.51 X10^3/uL; Monocyte% 6.6 % (0-10); NRBC Flagged by Analyzer 0 % (0-5); Neutrophil % 68.8 % (47-70); Platelet Count 328 K/mm3 (150-450); RBC Distribution Width CV 14.1 % (11.6-14.6); RBC Distribution Width SD 40.8 fl (35.1-43.9); Red Blood Count 4.82 M/mm3 (4.2-5.4); White Blood Count 7.7 K/mm3 (4.4-11.0)
[2023-02-13 06:25] LABS: Anion Gap 7 (5-15); BUN 9 mg/dL (7-18); BUN/Creat Ratio 15.4 RATIO (10-20); Calcium,Total 8.6 mg/dL (8.5-10.1); Chloride 108 mmol/L (98-107); Creatinine, Serum 0.58 mg/dL (0.55-1.02); EST Glomerular Filtration Rate 132 mL/min (>60); Est Glom Filt Rate - Afr Amer 160 mL/min (>60); Estimated Creatinine Clearance 121.59 ml/min; Glucose 85 mg/dL (74-106); Potassium 3.9 mmol/L (3.5-5.1); Sodium Level 139 mmol/L (136-145)
[2023-02-13 06:29] LABS: Partial Thromboplast Time 30.4 Seconds (24.1-36.2); Prothrombin Time (Protime)PT. 12.7 SECONDS (11.7-14.9)
--- NOTE | 2023-02-13 07:54 | EDS_ITS ---
HPI History of Present Illness Chief Complaint: GI Bleed Detail of Chief Complaint: Vomited blood Informant: patient Onset/Context/Timing Onset: Today Narrative Narrative: Patient presents secondary to vomiting blood. She is 12 weeks states that she vomits every morning when she gets up. When she is done vomiting she is usually able to eat breakfast and the rest of the day she is feeling okay. This morning she heaved a couple times and then brought up some bright red blood. She is not having any pain. She has not noted any recent change in stool color. PFSH PFS Medical History Anxiety Depression Home Medications ondansetron 4 mg disintegrating tablet 4 mg PO Q8H PRN PRN Nausea #10 tabs 08/12/14 [Rx Last Taken Unknown] aspirin 81 mg capsule 81 mg PO DAILY 02/13/23 [History Last Taken Unknown] vit no.95-ferrous fumarate 28 mg-folic acid 800 mcg tablet () 1 tab PO DAILY 02/13/23 [History Last Taken Unknown] sertraline 100 mg tablet 100 mg PO Q24H 02/13/23 [History Last Taken Unknown] Allergy/AdvReac Type Severity Reaction Status Date / Time ibuprofen Allergy Anaphylaxis Verified 02/13/23 05:37 latex Allergy Anaphylaxis Verified 02/13/23 05:37 Surgical History History of orthopedic surgery Social History Smoking Status: Never smoker ROS ROS ED Constitutional Constitutional ED: Denies chills or fever(s) Eyes Eyes: Denies discharge from eye(s) ENT ENT ED: Denies discharge from eye(s) or sore throat Cardiovascular Cardiovascular: Denies chest pain Respiratory/Chest Respiratory/Chest: Denies cough or dyspnea Gastrointestinal Gastrointestinal: Reports vomiting and other Details: Hematemesis ; Denies abdominal pain, diarrhea or nausea Musculoskeletal Musculoskeletal: Denies back pain or extremity pain Integumentary Denies Abrasions or rash Neurologic Neurologic: Denies headache(s) or weakness Allergic/Immunologic Allergic/Immunologic ED: Denies lip swelling or urticaria EXAM Physical Exam Const Vital Signs: 02/13/23 05:39 Temperature 97.2 F L Temperature Source Temporal Pulse Rate 98 Respiratory Rate 16 Blood Pressure 135/80 H Blood Pressure Mean 98 Pulse Ox 98 Positive well nourished and well developed General Appearance ED: well developed HEENT Reports moist mucous membranes Eyes EOMs intact bilaterally Chest Wall inspection of chest normal and palpation of chest normal Resp normal respiratory effort and clear to auscultation bilaterally Cardio regular rate and regular rhythm GI non-tender Auscultation: hypoactive bowel sounds Palpation: soft Extremity normal to inspection Neuro oriented x3 and no sensory deficits noted Motor Exam: strength 5/5 throughout Psych mental status grossly normal Skin no rashes or lesions noted MDM MDM MDM Narrative Medical decision making narrative: IV line initiated. Labwork obtained to evaluate for leukocytosis, anemia, and electrolyte derangement. Patient offered antiemetics here but declined. Lab Data Labs: Laboratory Results - last 24 hr 02/13/23 05:59 WBC 7.7 RBC 4.82 Hgb 12.7 Hct 38.4 MCV 79.7 L MCH 26.3 L MCHC 33.1 RDW Std Deviation 40.8 RDW Coeff of Jermaine 14.1 Plt Count 328 MPV 9.5 Immature Gran % (Auto) 0.300 Neut % (Auto) 68.8 Lymph % (Auto) 22.5 Gillespie % (Auto) 6.6 Eos % (Auto) 1.3 Baso % (Auto) 0.5 Absolute Neuts (auto) 5.3 Absolute Lymphs (auto) 1.73 Nucleated RBC % 0 PT 12.7 INR 1.0 APTT 30.4 Sodium 139 Potassium 3.9 Chloride 108 H Carbon Dioxide 24.0 Anion Gap 7 BUN 9 Creatinine 0.58 Estim Creat Clear Calc 121.59 Est GFR (MDRD) Af Amer 160 Est GFR (MDRD) Non-Af 132 BUN/Creatinine Ratio 15.4 Glucose 85 Calcium 8.6 Treatment and Re-Evaluation :: CBC was normal white count 7.7 with a hemoglobin of 12.7. Differential unremarkable. Chemistry studies unremarkable with a normal BUN. On repeat evaluation patient's had no further vomiting. We did discuss small tears from her retching likely leading to her bleeding. She was advised that she can take Tums or Pepcid during if she has problems with stomach acid. She has Zofran at home that she can take for nausea. Patient is to follow-up with her MANUFACTURERS REPRESENTATIVE, Dr. Regan. Return instructions provided. Discharge Plan Triage Chief Complaint: GI Bleed ED Provider: Lyn Bonds Dx/Rx/DC Orders Clinical Impression: First trimester , Hematemesis Instructions: 1st Trimester, ED Upper GI Bleeding (Stable), ED Vomiting (Adult) Prescriptions: No Action ondansetron 4 MG tablet 4 mg PO Q8H PRN PRN (Reason: Nausea) Qty: 10 0RF sertraline 100 mg tablet 100 mg PO Q24H Patient Comments: TAKE 1 TABLET BY MOUTH EVERY DAY aspirin 81 mg capsule 81 mg PO DAILY PNV cmb#95-ferrous fumarate-FA [] 28 mg iron- 800 mcg tablet 1 tab PO DAILY Primary Care Provider: Oleksandr Campos Referrals: Oleksandr Campos MD [Primary Care Provider] - Wen Regan MD [Med Staff - Active Staff] - 1 Week if not improving Disposition Disposition: Home, Self Care Discharge Date/Time: 02/13/23 08:24
== END 2023-02-13 08:24 | disposition home or self-care (01) ==
PROVIDERS: Emergency Provider Emergency Medicine; PCP Family Medicine; Visit Provider Emergency Medicine
DX: O99.611 Diseases of the digestive system complicating pregnancy, first trimester (principal); K92.0 Hematemesis; Z3A.12 12 weeks gestation of pregnancy; O99.341 Other mental disorders complicating pregnancy, first trimester; F41.9 Anxiety disorder, unspecified; F32.A Depression, unspecified; Z79.899 Other long term (current) drug therapy
CPT/HCPCS: 80048; 85025; 85610; 85730; 96360; 96361; 99283

== ENCOUNTER 2023-08-26 10:22 | Outpatient (CLI) | payer BC, SELFPAY ==
[2023-08-26 10:41] VITALS: BMI 37.4
[2023-08-26 10:43] VITALS: PULSE 98; O2SAT 98
[2023-08-26 10:45] VITALS: BP 135/80; PULSE 81; RESP 16; TEMP 36.9
--- NOTE | 2023-08-26 22:40 | OB.TRI.NOTE ---
HPI - General HPI Narrative KIKI SUE, is a 28 F G1 who presents for contractions. Patient denies any loss of fluid or vaginal bleeding. Positive movement. Maternal Data Information [place] Calculator Estimated Delivery Date Method Current WG Current Estimate 08/25/23 Manual 40w 1d PFSH PFSH Medical History Depression Anxiety Home Medications ?Medication ?Instructions ?Recorded ?Last Taken ?Type aspirin 81 mg capsule 81 mg PO DAILY 02/13/23 08/26/23 06:00 History vit no.95-ferrous 1 tab PO DAILY 02/13/23 08/26/23 06:00 History fumarate 28 mg-folic acid 800 mcg tablet () sertraline 100 mg tablet 100 mg PO Q24H 02/13/23 08/26/23 06:00 History Allergy/AdvReac Type Severity Reaction Status Date / Time ibuprofen Allergy Anaphylaxis Verified 08/26/23 10:40 latex Allergy Anaphylaxis Verified 08/26/23 10:40 Surgical History History of orthopedic surgery Social History Smoking Status: Never smoker NST FHR Rate Baby A Baseline: 135 Variability:: Moderate Accelerations:: 15 x 15 Decelerations:: None NST Reactive:: Yes FHR Category:: Category I Uterine Activity:: Irregular Assessment & Plan (1) Uterine contractions: (2) 40 weeks gestation of : (3) Nulliparity: PLAN: Plan NST reactive, Cat. 1 tracing CE closed- unchanged after extended monitoring D/C home with follow up in office this week
== END 2023-08-26 12:55 | disposition home or self-care (01) ==
LOC: WPOUT 10:25 → WP 10:25
PROVIDERS: PCP Family Medicine; Referring Provider Advanced Practice Midwife; Visit Provider Advanced Practice Midwife
DX: O47.1 False labor at or after 37 completed weeks of gestation (principal); O99.343 Other mental disorders complicating pregnancy, third trimester; F32.A Depression, unspecified; F41.9 Anxiety disorder, unspecified; Z79.82 Long term (current) use of aspirin; Z79.899 Other long term (current) drug therapy; Z3A.40 40 weeks gestation of pregnancy
CPT/HCPCS: 59025; 59050; 99221; G0378

== ENCOUNTER 2023-08-28 02:54 | Inpatient (IN) | payer BC, SELFPAY ==
[2023-08-28] VITALS (27 sets, daily range): BP systolic 122–147; BP diastolic 67–85; PULSE 85–117; RESP 16–22; TEMP 36.4–37.3; O2SAT 82–98; BMI 37.5
[2023-08-28 03:17] LABS: Absolute Lymphocyte Count 1.49 X10^3/uL (0.83-4.51); Absolute Neutrophil Count 10.5 X10^3/uL (2.0-7.7); Basophil# 0.03 X10^3/uL; Basophil% 0.2 % (0-1); Eosinophil# 0.04 X10^3/uL; Eosinophils% 0.3 % (0-5); Hematocrit 35.3 % (37-47); Hemoglobin 11.4 g/dL (12.0-15.0); Lymphocyte # 1.49 X10^3/ul (0.83-4.51); Lymphocyte % 11.6 % (19-41); Mean Corp Hgb Conc 32.3 g/dL (32-36); Mean Corpuscular Hgb 25.2 pg (27.0-32.0); Mean Corpuscular Volume 77.9 fL (81-99); Mean Platelet Vol. 10.1 fl (6.2-12.0); Monocyte# 0.74 X10^3/uL; Monocyte% 5.7 % (0-10); NRBC Flagged by Analyzer 0 % (0-5); Neutrophil # 10.53 X10^3/uL (2.7-7.7); Neutrophil % 81.9 % (47-70); Platelet Count 337 K/mm3 (150-450); RBC Distribution Width CV 14.6 % (11.6-14.6); RBC Distribution Width SD 40.7 fl (35.1-43.9); Red Blood Count 4.53 M/mm3 (4.2-5.4); White Blood Count 12.9 K/mm3 (4.4-11.0)
[2023-08-28 04:05] LABS: Syphilis Antibodies Non-reactive
--- NOTE | 2023-08-28 07:43 | HP.PCM.OB_ITS ---
HPI - General General Date of Admission: 08/28/23 HPI Narrative KIKI SUE, is a 28 F at 40.3 weeks gestation who presents in spontaneous labor. Patient stated has been susan most of the day and contractions have now increased in frequency and intensity. She desires an unm edicated labor and delivery. complicated by obesity and rubella non- immune status. GBS negative. Maternal Data Information [place] Calculator Estimated Delivery Date Method Current WG Current Estimate 08/25/23 Manual 40w 3d PFSH PFSH Medical History (Updated 08/28/23 @ 07:50 by Janeth Arias CNM) Osteochondroma Tendinitis Depression Anxiety Home Medications ?Medication ?Instructions ?Recorded ?Last Taken ?Type aspirin 81 mg capsule 81 mg PO DAILY 02/13/23 08/26/23 06:00 History vit no.95-ferrous 1 tab PO DAILY 02/13/23 08/28/23 History fumarate 28 mg-folic acid 800 mcg tablet () sertraline 100 mg tablet 100 mg PO Q24H 02/13/23 08/28/23 History Allergy/AdvReac Type Severity Reaction Status Date / Time ibuprofen Allergy Anaphylaxis Verified 08/28/23 00:48 latex Allergy Anaphylaxis Verified 08/28/23 00:48 Surgical History (Updated 08/28/23 @ 02:45 by Mary Parker) History of surgery History of orthopedic surgery Social History Smoking Status: Never smoker History Elective abortions Hx Para 0 Spontaneous abortions Hx # Term Pregnancies Ectopic pregnancies Hx # Pregnancies Multiple births # of living children NST FHR Rate Baby A Baseline: 145 Variability:: Moderate Accelerations:: 15 x 15 Decelerations:: None NST Reactive:: Yes FHR Category:: Category I Uterine Activity:: irregular ROS Eyes Eyes: Denies blurry vision, change in vision or spots in vision ENT HEENT: Denies dizziness or headache(s) Cardiovascular Cardiovascular: Denies abdominal pain, chest pain or dyspnea Respiratory/Chest Respiratory/Chest: Denies cough, dyspnea, shortness of breath at rest or shortness of breath with exertion Gastrointestinal Gastrointestinal: Denies abdominal pain, diarrhea or vomiting Genitourinary Genitourinary: Denies change in urinary stream, difficulty urinating or dysuria Musculoskeletal Musculoskeletal: Reports none Integumentary Integumentary: Denies rash Neurologic Neurologic: Denies dizziness, headache(s), memory loss or weakness Vital Signs Vital Signs Vital Signs: 08/28/23 00:39 08/28/23 00:39 08/28/23 00:39 Temperature Temperature Source Pulse Rate 97 Respiratory Rate Blood Pressure 147/85 H BP Systolic 147 BP Diastolic 85 Pulse Ox 95 08/28/23 00:39 08/28/23 00:39 08/28/23 00:39 Temperature 97.7 F L Temperature Source Temporal Pulse Rate Respiratory Rate 18 Blood Pressure BP Systolic BP Diastolic Pulse Ox 08/28/23 02:49 08/28/23 02:49 08/28/23 02:49 Temperature Temperature Source Pulse Rate 85 Respiratory Rate Blood Pressure 124/76 H BP Systolic 124 BP Diastolic 76 Pulse Ox 96 08/28/23 02:49 08/28/23 02:49 08/28/23 05:01 Temperature 98.0 F Temperature Source Temporal Pulse Rate Respiratory Rate Blood Pressure 139/84 H BP Systolic 139 BP Diastolic 84 Pulse Ox 08/28/23 05:01 08/28/23 05:01 08/28/23 05:01 Temperature Temperature Source Temporal Pulse Rate 88 Respiratory Rate Blood Pressure BP Systolic BP Diastolic Pulse Ox 98 08/28/23 05:01 08/28/23 05:01 08/28/23 07:14 Temperature 97.6 F L Temperature Source Pulse Rate Respiratory Rate 18 Blood Pressure 132/75 H BP Systolic 132 BP Diastolic 75 Pulse Ox 08/28/23 07:14 08/28/23 07:15 08/28/23 07:16 Temperature Temperature Source Pulse Rate 90 98 Respiratory Rate Blood Pressure BP Systolic BP Diastolic Pulse Ox 82 08/28/23 07:16 08/28/23 07:16 08/28/23 07:16 Temperature Temperature Source Temporal Pulse Rate Respiratory Rate 20 H Blood Pressure BP Systolic BP Diastolic Pulse Ox 98 08/28/23 07:16 08/28/23 07:16 Temperature 99.2 F H Temperature Source Pulse Rate Respiratory Rate Blood Pressure BP Systolic BP Diastolic Pulse Ox 98 Weight Weight: 218 lb 6.4 oz Body Mass Index (BMI) 37.5 Physical Exam Const alert, oriented x3 and no apparent distress General Appearance: cooperative Orientation / Consciousness: awake Exam Limitations: no limitations HEENT normocephalic Head and Scalp: normal to inspection Eyes General Eye: normal appearance of both eyes Neck full ROM and no lymphadenopathy Lymph Lymphatic: no lymphadenopathy noted Chest inspection of chest normal Resp normal respiratory effort, normal air movement and clear to auscultation bilaterally Effort and Inspection: able to speak in complete sentences and symmetric chest movement Cardio regular rate and regular rhythm GI normal to inspection, nondistended, normoactive bowel sounds Manual OB Exam: presentation cephalic, dilated 4, effaced 80 and station 0 Back/Spine normal ROM Extremity full ROM and no calf tenderness Skin no rashes or lesions noted General Skin Exam: no breakdown Neuro oriented x3 and CN's II-XII intact bilaterally Psych mental status grossly normal and thought process normal Labs Labs Labs: Blood Type A POSITIVE Antibody Screen NEGATIVE Hct 35.3 % (37-47) L Hgb 11.4 g/dL (12.0-15.0) L Syphilis Total Ab Non-reactive Assessment & Plan (1) Nulliparity: (2) 40 weeks gestation of : (3) Uterine contractions: (4) Rubella non-immune status, antepartum: (5) Depression: (6) Anxiety: (7) Spontaneous onset of labor: PLAN: Plan CE- 5-6/cm changed from initial assessment of 4 cm Bulging bag of fluid Admit to labor and delivery Routine labs Start IV fluids and run per orders GBS negative pyelectasis seen via US early in but since resolved Dr. Regan notified of admission and is collaborating physician
[2023-08-28] MEDS: 0.9% Saline Lock 10 ML Syringe IV (09:31)
[2023-08-28] MEDS: Oxytocin 15 Units/NS 250ml 15 UNITS/250 ML IV.SOLN 2 UNITS IV (09:45)
[2023-08-28] MEDS: Lactated Ringers 1,000 ML 50 ML IV (09:46)
[2023-08-28] MEDS: Lidocaine 1% (20 ml mdv) 20 ML Vial INFILT ×2 (10:43→11:28)
[2023-08-28] MEDS: Oxytocin 15 Units/NS 250ml 15 UNITS/250 ML IV.SOLN 83 UNITS IV (11:06)
--- NOTE | 2023-08-28 11:59 | EX.PCM.OBRPT ---
Assessment & Plan (1) (spontaneous vaginal delivery): (2) Laceration, obstetrical, second degree: (3) Anxiety: (4) Depression: (5) Rubella non-immune status, antepartum: (6) Care and examination of lactating mother: Maternal Data Information [place] Calculator Estimated Delivery Date Method Current WG Current Estimate 08/25/23 Manual 40w 3d Vaginal Delivery Maternal Presentation Maternal Presentation: Active Labor Operative Information Date of Procedure: 08/28/23 Pre-Operative Diagnosis: Term gestation, Spontaneous onset of labor Post-Operative Diagnosis: , live male infant Surgery / Procedure Performed: Spontaneous Vaginal Delivery Type of Anesthesia: Local with 1% Lidocaine Estimated Blood Loss: 500 Time of Delivery: 10:34 Findings Presentation: Vertex Amniotic Membrane Rupture Type: Artificial Time of Membrane Rupture: 0803 Amniotic Fluid Description: Bloody and - (Meconium stained at delivery)
--- NOTE | 2023-08-28 12:08 | EX.PCM.OBRPT ---
Documented by User: Janeth Arias CNM 08/28/23 12:39 Assessment & Plan (1) Care and examination of lactating mother: (2) (spontaneous vaginal delivery): (3) Spontaneous onset of labor: (4) Anxiety: (5) Depression: (6) Rubella non-immune status, antepartum: (7) Vaginal laceration: Maternal Data Information [place] Calculator Estimated Delivery Date Method Current WG Current Estimate 08/25/23 Manual 40w 5d Vaginal Delivery Maternal Presentation Maternal Presentation: Active Labor Type of Induction: Amniotomy (AUGMENTATION) Operative Information Date of Procedure: 08/28/23 Pre-Operative Diagnosis: Term gestation, Spontaneous onset of active labor Post-Operative Diagnosis: , Live male Surgery / Procedure Performed: Spontaneous Vaginal Delivery Type of Anesthesia: Local with 1% Lidocaine Estimated Blood Loss: 500 Time of Delivery: 10:34 Findings Description of Procedure: Patient involuntarily bearing down. CE- 10/+1 station. Provided bedside support to patient throughout pushing. With good maternal effort, head delivered followed immediately by remainder of infant body without downward traction. Umbilical cord wrapped x 2 around loosely and easily reduced. Vigorous male placed on maternal abdomen and attended to by nursing. Pitocin IV started for active management of the third stage of labor. 3 vessel cord clamped and cut by FOB after delay and placed skin to skin with patient. Placenta delivered spontaneously and intact. Fundus firm with massage but vaginal bleeding continued. Identified several lacerations posteriorly. Difficult to visualize due to continued bleeding and location. Had nursing staff call Dr. Regan to come and assist with repair. APGARS 8/9 EBL 500cc. See below note. Repair by - Bilateral first degree vaginal lacerations noted. Lidocaine 1% injected into vaginal tissue. Repaired with running and interrupted 3-0 vicryl sutures for excellent hemostasis. At end of procedure vaginal sweep performed. Sponge, lap & needle counts correct. Presentation: Vertex Amniotic Membrane Rupture Type: Artificial Time of Membrane Rupture: 0803 Amniotic Fluid Description: Clear and - (Meconium noted prior to pushing) Placental Delivery Description: Spontaneous Placenta Disposition: [facility] Cord Vessel Description: 3 Vessels Cord Entanglement: - (Around body x2 loose) Nuchal Cord Compression: Without compression A Gender: Male (1 minute): 8 (5 minute): 9 Delayed Cord Clamping: Yes Post Vaginal Delivery Medications Given After Delivery: IV Pitocin Episiotomy Description: None Laceration: Vaginal Extension/lac and 1st degree Complication Complications: None Documented by User: Dr. Wen Regan MD 08/30/23 08:56 Assessment & Plan (1) Care and examination of lactating mother: (2) (spontaneous vaginal delivery): (3) Spontaneous onset of labor: (4) Anxiety: (5) Depression: (6) Rubella non-immune status, antepartum: (7) Vaginal laceration: Maternal Data Information [place] Calculator Estimated Delivery Date Method Current WG Current Estimate 08/25/23 Manual 40w 5d Vaginal Delivery Findings Description of Procedure: Repair by - Bilateral first degree vaginal lacerations noted. Lidocaine 1% injected into vaginal tissue. Repaired with running and interrupted 3-0 vicryl sutures for excellent hemostasis. At end of procedure vaginal sweep performed. Sponge, lap & needle counts correct.
[2023-08-28] MEDS: Acetaminophen 500 MG Tablet 1000 MG PO ×2 (13:36→19:04)
--- NOTE | 2023-08-28 16:18 | NURSING ---
1530 pt up to br to void and pt became very dizzy- stated that she felt like she was going to pass out- pt sat back down till she felt better- extra help to room- pt transferred to wheelchair and helped back to bed- pt instructed not to get up without assistance.
[2023-08-28] MEDS: Sertraline 100 MG Tablet PO (20:56)
[2023-08-28] MEDS: Ferrous Sulfate 325 MG Tablet PO (22:59)
[2023-08-29] VITALS (11 sets, daily range): BP systolic 120–146; BP diastolic 66–85; PULSE 79–94; RESP 16–18; TEMP 36.1–36.8; O2SAT 97–98
[2023-08-29 04:57] LABS: Absolute Lymphocyte Count 2.32 X10^3/uL (0.83-4.51); Absolute Neutrophil Count 11.8 X10^3/uL (2.0-7.7); Basophil# 0.04 X10^3/uL; Basophil% 0.3 % (0-1); Eosinophil# 0.05 X10^3/uL; Eosinophils% 0.3 % (0-5); Hematocrit 29.1 % (37-47); Hemoglobin 9.4 g/dL (12.0-15.0); Lymphocyte # 2.32 X10^3/ul (0.83-4.51); Lymphocyte % 15.3 % (19-41); Mean Corp Hgb Conc 32.3 g/dL (32-36); Mean Corpuscular Hgb 25.3 pg (27.0-32.0); Mean Corpuscular Volume 78.4 fL (81-99); Mean Platelet Vol. 9.7 fl (6.2-12.0); Monocyte# 0.87 X10^3/uL; Monocyte% 5.7 % (0-10); NRBC Flagged by Analyzer 0 % (0-5); Neutrophil # 11.79 X10^3/uL (2.7-7.7); Neutrophil % 77.9 % (47-70); Platelet Count 324 K/mm3 (150-450); RBC Distribution Width CV 14.9 % (11.6-14.6); RBC Distribution Width SD 42.1 fl (35.1-43.9); Red Blood Count 3.71 M/mm3 (4.2-5.4); White Blood Count 15.1 K/mm3 (4.4-11.0)
[2023-08-29] MEDS: Naproxen 500 MG Tablet PO ×2 (07:19→15:09)
--- NOTE | 2023-08-29 08:29 | PN.OBGYN_ITS ---
Subjective Subjective Patient denies pain. Ambulating and voiding without difficulty. Denies headache, dizziness, SOB, or CP. Lochia is decreasing. with support from . Anticipate discharge home tomorrow. Objective Data Objective Data Vital Signs: Vital Signs Temp Pulse Resp BP Pulse Ox O2 Del Method 98.3 F 79 16 125/68 H 98 Room Air 08/29/23 07:15 08/29/23 07:21 08/29/23 07:15 08/29/23 07:21 08/29/23 04:41 08/29/23 04:41 Oxygen Delivery Method Room Air Weight: 218 lb 6.4 oz Body Mass Index (BMI) 37.5 Intake & Output: Intake and Output for Last 24 Hours 08/27/23 08/28/23 08/29/23 23:59 23:59 23:59 Intake Total 735.03 / 735.03 Output Total 1250 / 1250 Balance -514.97 / -514.97 Lab / Micro Data 08/29/23 04:50 Labs: Laboratory Results - last 24 hr 08/29/23 04:50: WBC 15.1 H, RBC 3.71 L, Hgb 9.4 L, Hct 29.1 L, MCV 78.4 L, MCH 25.3 L, MCHC 32.3, RDW Std Deviation 42.1, RDW Coeff of Jermaine 14.9 H, Plt Count 324, MPV 9.7, Immature Gran % (Auto) 0.500, Neut % (Auto) 77.9 H, Lymph % (Auto) 15.3 L, [place] % (Auto) 5.7, Eos % (Auto) 0.3, Baso % (Auto) 0.3, Absolute Neuts (auto) 11.8 H, Absolute Lymphs (auto) 2.32, Nucleated RBC % 0 ROS Eyes Eyes: Denies blurry vision, change in vision or spots in vision ENT HEENT: Denies dizziness or headache(s) Cardiovascular Cardiovascular: Denies abdominal pain, chest pain or dyspnea Respiratory/Chest Respiratory/Chest: Denies cough, dyspnea, shortness of breath at rest or shortness of breath with exertion Gastrointestinal Gastrointestinal: Denies abdominal pain, diarrhea or vomiting Genitourinary Genitourinary: Denies change in urinary stream, difficulty urinating or dysuria Musculoskeletal Musculoskeletal: Reports none Integumentary Integumentary: Denies rash Neurologic Neurologic: Denies dizziness, headache(s), memory loss or weakness Assessment & Plan (1) Vaginal laceration: (2) Care and examination of lactating mother: (3) (spontaneous vaginal delivery): (4) Anxiety: (5) Depression: (6) Rubella non-immune status, antepartum: (7) Anemia due to blood loss: PLAN: Plan PPD 1 HGB. 9.4- started on oral iron BID- patient is asymptomatic support Continue Zoloft PO daily MMR vaccine prior to discharge Anticipate discharge tomorrow
--- NOTE | 2023-08-29 12:34 | CASEMGMT ---
Social Work Assessment Labor and Delivery Unit Patient Address:[place] [address] Phone number: [phone] Date of Referral: 08/27/21 Time of Referral:? Referred By: Date of Intervention: ?? Time of Intervention:? Reason for Referral:? History obtained from: medical records, MOB and FOB Household composition: Patient's parent/guardian status:? ? Medical History: ? Educational Status:? Financial Status: Infant Supplies:?? Childcare/Caregiver(s):? Transportation:?? Programs/Agencies Involved: ??? Children Services/Legal Issues:??? Behavioral Health Issues: ??Mental Health History:??? Substance Use History:?? Family History:? Drug Screens: ?? Family/Social Stressors:? Support Systems: Depression/Shaken Baby/Safe Sleeping:? ASSESSMENT:? Safe Plan of Care for infant related to substance use:? PLAN:? ?No other services requested or indicated.
--- NOTE | 2023-08-29 12:38 | CASEMGMT ---
Social Work Assessment Labor and Delivery Unit Patient Address: [place] [address] Phone number: [phone] Date of Referral: 08/28/23 Time of Referral:? 1738 Referred By: Janeth Arias Date of Intervention:08/29/23?? Time of Intervention:? 1145 Reason for Referral:? history of depression on zoloft Sw completed chart review and acknowledges social work consult due to maternal mental health history. Sw presented to bedside and introduced self to mother of baby (MOB- Suzy) and father of baby (FOB- Edi). Also present was step mother to MOB, MOB stated it was okay to complete assessment with her present. Sw completed psychosocial assessment. History obtained from: medical records, MOB and FOB Household composition: Currently residing in the family home is MOB, FOB and baby when ready for discharge. Parents deny any issues or concerns with their current housing. Patient's parent/guardian status:? Parents report that their parents lived close to each other and they have been together for 10 years. No issues or concerns reported of domestic violence or intimate partner violence. ? Medical History: ?DESI is 28 year old female who is 1, para 0- now 1 following labor and delivery. DESI received routine care during with [facility]. DESI presented to hospital in active labor and delivered baby via vaginal delivery at 40 weeks gestation. baBy boy, named Jasvir, was born weighing 7lb 5oz with apgars of 8 and 9 at one and five minutes of life, respectfully. DESI is breast feeding and was encouraged to follow up with outpatient services. DESI states that baby will be followed by Dr. Paula for pediatrics. Educational Status:?Both parents completed high school and MOB obtained her Bachelors degree. Parents deny issues with reading, learning or comprehension. Financial Status: Both parents are gainfully employed outside of the home. FOB works for [employer] and MOB will be starting a new job in October working for [employer]. Supplies:?? Parents have obtained all necessary baby supplies, including: car seat, safe sleep space, clothes, diapers and wipes. Childcare/Caregiver(s):?MOB will be the primary caregiver to baby along with FOB when he is not working. Transportation:?? Both parents have their drivers license and reliable means of transportation. No barriers at this time. Programs/Agencies Involved: Parents are not connected to any community resources that assist them financially at this time. ??? Children Services/Legal Issues:??? No history or former involvement with children services, no issues or concerns warranting referral to be made at this time. Behavioral Health Issues: ??Mental Health History:??FOB denies mental health history. MOB states that she has been diagnosed with anxiety and depression. MOB reports that she will get into a grove where she does not have any motivation or drive to do anything, and then she starts to feel anxious about the things that she is not doing. MOB states that she is prescribed Zoloft to help manage her mental health. Her prescriber is her primary care doctor. MOB states that usually her mental health symptoms are managed and they do not impact her daily ability to function. ? Substance Use History:?Parents deny substance use prior to and during . ? Family History:??Parents deny family history of mental health diagnoses and significant substance use history/ addiction. ??? Drug Screens: No drug screens observed in chart review. ?? Family/Social Stressors:? MOB denies any issues or concerns at this time. Support Systems: Parents report that both sets of grandparents are supportive, along with their siblings and some friends. Depression/Shaken Baby/Safe Sleeping:? Sw educated both parents on signs and symptoms of baby blues and mood and anxiety disorders. MOB states that she is familiar with the terms and what to be on the lookout for. FOB states that he believes he would be able to recognize a change in MOB but he may not know how to help her or support her. Sw encouraged parents to have that conversation and for MOB to tell FOB what he can do to help her if she were to struggle with her mental health during this period. Parents expressed understanding and stated that this is something that they will discuss. Sw educated parents on shaken baby prevention and ABCs of safe sleep. Parents express understanding. ASSESSMENT:? MOB and baby admitted following labor and delivery. Both parents were talkative and interactive during completion of assessment. MOB observed to be holding and nursing baby will talking with sw. MOB cared for baby appropriately and lovingly. MOB with mental health history and is prescribed Zoloft to help manage her symptoms. MOB states that she is aware of signs and symptoms to be on the lookout for and plans to talk to FOB about ways that he can help and support her if she is to struggle. Parents have obtained all baby supplies and have natural supports in place. PLAN:? MOB and baby to be discharged when medically ready. ?No other services requested or indicated. Jade Russo, [employer], [employer]
[2023-08-29] MEDS: Ferrous Sulfate 325 MG Tablet PO ×2 (13:38→17:10)
[2023-08-29] MEDS: MEASLES,MUMPS,RUBELLA VACC/PF 0.5 ML SC (15:09)
[2023-08-29] MEDS: Acetaminophen 500 MG Tablet 1000 MG PO (20:38)
[2023-08-29] MEDS: Sertraline 100 MG Tablet PO (20:38)
[2023-08-30 02:13] VITALS: BP 141/82; PULSE 112
[2023-08-30 02:15] VITALS: BP 141/82; PULSE 100; RESP 18; TEMP 36.3; O2SAT 95
[2023-08-30] MEDS: Naproxen 500 MG Tablet PO (06:40)
--- NOTE | 2023-08-30 08:59 | PCM.PN.OB ---
Subjective Subjective Denies complaints Objective Data Objective Data Vital Signs: Vital Signs Temp Pulse Resp BP Pulse Ox O2 Del Method 97.3 F L 100 18 141/82 H 95 Room Air 08/30/23 02:15 08/30/23 02:15 08/30/23 02:15 08/30/23 02:15 08/30/23 02:15 08/30/23 02:15 Oxygen Delivery Method Room Air Weight: 218 lb 6.4 oz Body Mass Index (BMI) 37.5 Intake & Output: Intake and Output for Last 24 Hours 08/28/23 08/29/23 08/30/23 23:59 23:59 23:59 Intake Total 735.03 / 735.03 Output Total 1250 / 1250 Balance -514.97 / -514.97 Lab / Micro Data 08/29/23 04:50 Physical Exam Const alert, oriented x3 and no apparent distress HEENT normocephalic GI soft to palpation, non-tender and non-distended GI Narrative: fundus firm, mid & below umbilicus Extremity normal to inspection and no calf tenderness Assessment & Plan (1) (spontaneous vaginal delivery): COMMENT: PPD#1 PLAN: D/c home later today Patient will monitor BP at home due to very mild BP elevattion (2) Anemia due to blood loss:
--- NOTE | 2023-08-30 09:00 | DCINST_ITS ---
Discharge Instructions Diet Discharge Diet: No restrictions Activity Discharge Activity: May Shower May resume sexual activity in: 6 weeks Weight Bearing Status: Weight bearing as tolerated Additional Activity Instructions:: Please monitor BP at home daily. Call office with BP over 140/90. Dressing / Incision Call your doctor if you observe: Fever of 101 or Higher, Coldness, Increased Pain, Change in Color, Inability to urinate, Inability to have a bowel movement, Using more than 1 pad per hour, Shortness of breath, Dizziness, Fainting spells, Chest pain, Increased palpitations (irregular heartbeat), Calf discomfort and Uncontrolled pain Follow Up Care Please Follow Up With: Wen Regan MD When: Follow up in 2 and 6 weeks for visits. Test Results: Test results from this visit will be discussed in further detail at your follow- up appointment, if applicable. Discharge Plan Admission Admit Date/Time: 08/28/23 02:54 Primary Reason for Your Visit: vaginal delivery Attending Provider: Janeth Arias Primary Care Provider: Oleksandr Campos Instructions Additional Instructions / Restrictions: 15 minutes spent on discharge Discharge Orders/Prescriptions Prescriptions: New ferrous gluconate 324 mg (37.5 mg iron) tablet 324 mg PO DAILY Qty: 30 2RF acetaminophen 500 mg Tablet 1,000 mg PO Q6H PRN PRN (Reason: Pain 1-10 Or Fever) Qty: 0 0RF Continued sertraline 100 mg tablet 100 mg PO Q24H Patient Comments: TAKE 1 TABLET BY MOUTH EVERY DAY PNV cmb#95-ferrous fumarate-FA [] 28 mg iron- 800 mcg tablet 1 tab PO DAILY Discontinued aspirin 81 mg capsule 81 mg PO DAILY Referrals / Follow Up: Oleksandr Campos MD [Primary Care Provider] - Disposition Discharge Orders: Discharge Patient (Routine); Ordered 08/30/23 Ordered By: Dr. Wen Regan
[2023-08-30 09:35] VITALS: BP 117/65; PULSE 79; RESP 17; TEMP 36.9; O2SAT 99
[2023-08-30 09:50] VITALS: BP 117/65; PULSE 76
--- NOTE | 2023-09-05 13:09 | NURSING ---
F/up call performed, pt reports doing alright, feeding going well. Denies questions or concerns. Encouragement and support given.
== END 2023-08-30 11:30 | disposition home or self-care (01) | DRG 806 ==
LOC: WPOUT 03:00 → WP 03:00
PROVIDERS: Admitting Provider Advanced Practice Midwife; PCP Family Medicine; Visit Provider Advanced Practice Midwife
DX: O48.0 Post-term pregnancy (principal); Z37.0 Single live birth; D62 Acute posthemorrhagic anemia; F32.A Depression, unspecified; F41.9 Anxiety disorder, unspecified; O99.214 Obesity complicating childbirth; O90.81 Anemia of the puerperium; O99.344 Other mental disorders complicating childbirth; O69.82X0 Labor and delivery complicated by other cord entanglement, without compression, not applicable or unspecified; O70.0 First degree perineal laceration during delivery; O77.0 Labor and delivery complicated by meconium in amniotic fluid; Z3A.40 40 weeks gestation of pregnancy; Z79.82 Long term (current) use of aspirin
CPT/HCPCS: 59025; 59050; 85025; 86780; 86850; 86900; 86901; 99221; J7120; A4216; G0378